=== PATIENT | female | born 1960 | race Caucasian/White ===

== ENCOUNTER 2017-03-30 09:22 | Inpatient (IN) | payer OTHER, SELFPAY ==
[2017-03-30 10:07] LABS: #Eosinphils 0.4 thou/uL (0.0-0.7); #Lymphocytes 1.1 thou/uL (1.20-3.40); #Monocytes 0.4 thou/uL (0.11-0.59); #Neutrophils 6.7 thou/uL (1.40-6.50); %Basophils 0.2 % (0.0-1.0); %Eosinophils 4.7 % (0.0-10.0); %Lymphocytes 13.2 % (21.0-51.0); %Monocytes 4.3 % (0.0-10.0); Hematocrit 24.1 % (36.0-47.0); Mean Platelet Volume 6.9 fL (7.4-10.4); Red Blood Cell (RBC) Count 2.79 mill/uL (4.20-5.40); White Blood Cell (WBC) Count 8.7 thou/uL (4.8-10.8)
[2017-03-30 10:14] LABS: Prothrombin Time 14.5 SEC (12.0-14.7)
[2017-03-30 10:15] LABS: PTT 35.6 SEC (22.9-36.1)
--- NOTE | 2017-03-30 10:18 | CT ---
CONTRAST ENHANCED CT IMAGES OF THE ABDOMEN AND PELVIS: 03/30/2017 TECHNIQUE: IV contrast was given. FINDINGS: Contrast enhanced CT images of the abdomen and pelvis demonstrate areas of patchy density and air sp rogerio opacities at the posterior aspect of the lingula, as well as the left lower lobe and, to a lesse r degree, the posterior aspect of the right lower lobe. This is compatible with areas of possible p neumonia. This has increased in opacity since the previous exam from 12/23/2016. No evidence of free intraperitoneal air is seen. There is a gastrostomy tube now in place. The asya er and spleen are unremarkable. A gallstone is again noted. No evidence of gallbladder wall thicke abi is seen. No evidence of periaortic lymphadenopathy is seen. Atherosclerotic calcification of the abdominal a bethany and iliac artery is seen. A subumbilical midline incision is again seen. There is interval development of bilateral hydroureteronephrosis, not previously present. The urete rs are dilated bilaterally, to the region of the distal ureter. No evidence of obvious bladder mass es or lesions seen. A moderate amount of stool is seen in the rectum and colon. Also noted is some thickening of the distal esophagus, as well as a hiatal hernia. IMPRESSION: 1. Interval development of bilateral hydroureteronephrosis. 2. Placement of gastrostomy tube. 3. Increased opacities in the lung bases and lingula. POS: LIDYA
[2017-03-30 10:31] LABS: ALT (SGPT) 54 U/L (8-55); AST (SGOT) 45 U/L (5-34); Alkaline Phosphatase 350 U/L (40-150); Anion Gap 11 mmol/L (10-20); BUN (Urea Nitrogen) 54 mg/dL (9.8-20.1); Bilirubin, Total 0.3 mg/dL (0.2-1.2); Calc. Creatinine Clearance 0 mL/min (70-130); Calcium 9.6 mg/dL (7.8-10.44); Carbon Dioxide 30 mmol/L (22-29); Chloride 98 mmol/L (98-107); Estimated GFR-MDRD 42; Globulin 3.3 g/dL (2.4-3.5); Lipase 16 U/L (8-78); Protein, Total 6.2 g/dL (6.0-8.3)
[2017-03-30] MEDS ORDERED: Pantoprazole 40 MG VIAL ONE (12:51)
--- OUTSIDE RECORDS SUMMARY | 2017-03-30 12:57 | XMS | Clinical Summary ---
:1960 Author Organization [facility] Address [address] [place] [address] Phone Care Team Providers Name Role Phone , Primary Care Provider Unavailable Allergies Not on File Current Medications Not on file Active Problems Not on file Social History Tobacco Use Types Packs/Day Years Used Date Never Assessed Sex Assigned at Date Recorded Not on file Last Filed Vital Signs Not on file Plan of Treatment Not on file Results Not on filefrom Last 3 Months
[2017-03-30] MEDS ORDERED: Pantoprazole 80 MG, Admixture Fee 1 EACH in Sodium Chloride 0.9% 100 ML IVP SCH (13:15)
[2017-03-30] MEDS ORDERED: Iopamidol 370 76% 100 ML VIAL ONE (14:39)
[2017-03-30] MEDS ORDERED: Ondansetron HCl/PF 4 MG/2 ML Vial IVP PRN ×2 (14:42→15:09)
[2017-03-30] MEDS ORDERED: Acetaminophen 325 MG TAB PO PRN (14:42)
[2017-03-30] MEDS ORDERED: HYDROcodone/Acetaminophen 5/325 mg Tablet PO PRN ×2 (14:42)
[2017-03-30] MEDS ORDERED: Ondansetron ODT 4 MG TAB SL PRN (14:42)
[2017-03-30] MEDS ORDERED: Ondansetron ODT 4 MG TAB PER TUBE PRN (15:09)
[2017-03-30] MEDS ORDERED: Eucerin (Mineral Oil/Petrolatum,White) 30 gm Jar TOP PRN (15:09)
[2017-03-30] MEDS ORDERED: Fleet Enema 133 ML BOT PR PRN (15:09)
[2017-03-30] MEDS ORDERED: Acetaminophen 325 MG TAB PER TUBE PRN (15:09)
[2017-03-30] MEDS ORDERED: Sodium Chloride 0.65% Nasal 44 ML BOT EA NARE PRN (15:09)
[2017-03-30] MEDS ORDERED: Loperamide HCl 2 MG CAP PER TUBE PRN (15:09)
[2017-03-30] MEDS ORDERED: Mag-Al 1200 mg/1200 mg/30 ML UDCUP PER TUBE PRN (15:09)
[2017-03-30] MEDS ORDERED: Zolpidem Tartrate 5 MG TAB PER TUBE PRN (15:09)
[2017-03-30] MEDS ORDERED: Bisacodyl 10 MG SUPP PR PRN (15:09)
[2017-03-30] MEDS ORDERED: Artificial Tears 18 DROP/0.9 ML EA EYE PRN (15:09)
[2017-03-30] MEDS ORDERED: hydrALAZINE 20 MG/ML VIAL SLOW IVP PRN (15:09)
[2017-03-30] MEDS ORDERED: Diabetic Tussin 200 MG/10 ML UDCUP PO PRN (15:09)
[2017-03-30 15:27] VITALS: BMI 20.9
[2017-03-30 16:04] LABS: Bilirubin Negative (Negative); Blood, Urine Large (Negative); Glucose, Urine (Dipstick) Negative (Negative); Ketone, Urine Negative (Negative); Nitrite Negative (Negative); Protein, Urine (Dipstick) Negative (Neg-Trace); Urobilinogen 0.2 mg/dL (0.2-1.0)
[2017-03-30 16:09] LABS: Bacteria/HPF None Seen HPF (None Seen); Hyaline Casts/LPF 0-3 HYALINE CAST LPF (0-3 Hyaline); Squamous Epithelial None Seen HPF (0-3); WBC/HPF 21-50 HPF (0-3)
[2017-03-30] MEDS: Sodium Chloride 0.9% 1,000 ML IV SCH (16:19)
--- NOTE | 2017-03-30 16:42 | HP ---
PRIMARY CARE PHYSICIAN: JEANNETTE Zeng, at the prison. REASON FOR ADMISSION: Upper gastrointestinal bleed, acute kidney failure, bilateral hydronephrosis. HISTORY OF PRESENT ILLNESS: A 56-year-old female who was admitted in our hospital in 12/2016. At t hat time, patient had a prolonged hospital course and she was [facility] to prison on 01/13/20 17. This patient had a functional quadriplegia and this patient also had poor p.o. intake and requi red a PEG tube placement. This patient also had a CT chest, abdomen and pelvis at that time which showed cholelithiasis and ac id reflux. This patient was doing very well up until today, patient noticed blood in vomiting at th e prison and that is why she was sent to the emergency room for evaluation. Her hemoglobin wh en we discharged from hospital, at that time, it was 9.3 and today her hemoglobin is 7.6. The patie nt reports only 1 time vomiting of blood. She does not have any melanotic stool. In the emergency room, gastric occult blood was positive, but stool occult blood was negative. This patient denies any cough, shortness of breath, but her CT of the abdomen and pelvis also report ed bibasilar and lingular infiltration consistent with pneumonia. This time, patient also found wit h bilateral hydronephrosis and acute kidney failure. This patient is a poor historian. She does not providing any good history. She reports that she is eating as well as receiving tube feeding through the PEG tube. Patient reports that she is able to feel and move her both lower extremities as well as both upper extremities, but whenever she tried to walk, she cannot walk. The patient also reported that she had urination in the emergency room. REVIEW OF SYSTEMS: The following complete review of systems was negative, unless otherwise mentione d in the HPI or below: Constitutional: Weight loss or gain, ability to conduct usual activities. Skin: Rash, itching. Eyes: Double vision, pain. ENT/Mouth: Nose bleeding, neck stiffness, pain, tenderness. Cardiovascular: Palpitations, dyspnea on exertion, orthopnea. Respiratory: Shortness of breath, wheezing, cough, hemoptysis, fever or night sweats. Gastrointestinal: Poor appetite, abdominal pain, heartburn, nausea, vomiting, constipation, or diar allie. Genitourinary: Urgency, frequency, dysuria, nocturia. Musculoskeletal: Pain, swelling. Neurologic/Psychiatric: Anxiety, depression. Allergy/Immunologic: Skin rash, bleeding tendency. Please see my HPI for pertinent positives and negatives. All other review of system reviewed and ne gative except as mentioned in the HPI. PAST MEDICAL HISTORY: Hypothyroidism, dyslipidemia, COPD, hypertension, history of cervical cancer, physical deconditioning, functional quadriplegia. PAST PSYCHIATRIC HISTORY: Anxiety and depression. PAST SURGICAL HISTORY: Hysterectomy, x3, PEG tube placement. SOCIAL HISTORY: Patient is and she has 3 children. She is a former smoker. She quit [employer] this year, previously she was living by herself and she was also hospitalized in [place]. S he has a remote history of smoking about 2 packs per day for 30 years and more, but quit smoking thi s year. She denies any alcohol abuse. She is currently from prison. FAMILY HISTORY: Positive for heart disease and stroke on maternal side of the family, stroke and [place] also positive on paternal side of the family. CURRENT HOME MEDICATIONS: The patient does not have any medication with her at this point, but marlene ent was discharged on following medications: Albuterol 1 puff inhalation q.6 hourly p.r.n., aspirin 81 mg p.o. daily, Celexa 20 mg p.o. daily, ferrous sulfate 325 mg p.o. daily, folic acid 1 mg p.o. b.i.d., Synthroid 175 mcg p.o. daily, liothyronine 5 mcg p.o. daily, Remeron 15 mg p.o. at bedtime, Protonix 40 mg p.o. daily, MiraLax 17 grams p.o. daily, Inderal 10 mg t.i.d., bupropion 300 mg p.o. daily. ALLERGIES: LATEX, but no known drug allergies. EMERGENCY ROOM COURSE: Patient is given IV fluid and Protonix. PHYSICAL EXAMINATION: VITAL SIGNS: On arrival, blood pressure 112/62, pulse 104, respiratory rate 18, temperature 98.3, s aturation 93% on room air, weight 50.3 kilograms. GENERAL: Patient is currently alert, awake, in no obvious distress. Patient appears elder than her stated age. HEAD: Normocephalic, atraumatic. EYES: Pupils round, reactive to light, sunken eyeball. ENT: Oropharynx within normal limits. Dry appearing mucous membranes. No oral lesions. No pharyn geal erythema, no exudate. NECK: Supple, no JVD, no thyromegaly, no carotid bruit. LUNGS: Clear to auscultation, and few basilar rales noted. CARDIAC: S1, S2 regular without any murmur. ABDOMEN: Soft. PEG tube site is clean and no discharge noted. Vague abdominal discomfort noted, b ut predominantly on the lower abdomen. BACK: Unremarkable, no CVA tenderness. EXTREMITIES: Upper extremity: Passive movement of all joints are normal. Lower extremity: Passiv e movement of all joints are normal. SKIN: No skin rash. HEMATOLOGICAL: No lymphadenopathy. PSYCHIATRIC: Normal affect. SIGNIFICANT LABORATORY DATA AND IMAGING: CT of the abdomen and pelvis showing new bilateral hydrone phrosis, bilateral lower lobe consolidation, cholelithiasis, esophageal thickening with hiatal herni a. CBC: WBC 8.7, hemoglobin 7.6, platelets 297. INR 1.1. BMP: Sodium 135, potassium 4.4, chlori de 98, carbon dioxide 30, anion gap 11, BUN 54, creatinine 1.32, glucose 104, calcium 9.6. LFT: T 45, ALT 54, alkaline phosphatase 350, albumin 2.9, lipase 16. ASSESSMENT AND PLAN: 1. Acute upper gastrointestinal bleed. This patient has hematemesis. Her gastric occult blood is positive. This patient has drop in her hemoglobin from 9.3-7.6. At this point, the patient will be treated with Protonix 40 mg IV b.i.d. We will consult fish protector for upper endoscopic eval uation. We will keep her on clear liquid diet only. 2. Bilateral hydronephrosis, etiology uncertain. We will consult Urology. The patient will need a Muller catheterization. We will check urinalysis and urine culture. 3. Acute kidney failure, likely due to prerenal etiology. We will continue with slow IV fluid NS a t 70 mL per hour and we will repeat BMP tomorrow. We will check urinalysis. 4. Pneumonia, suspecting aspiration pneumonia. Patient will be given Zosyn 3.375 gram IV q.6 hourl y and the pharmacy adjusted vancomycin while in hospital. 5. Constipation. The patient will be given Dulcolax suppository and enema as needed basis. We latrice l also continue with stool softener on a daily basis. 6. Cholelithiasis. Patient has abnormal LFT. We will consult General Surgery for evaluation for c holelithiasis. 7. Functional quadriplegia, this patient is off bed bound status. Patient will need PT, OT while i n hospital. 8. Chronic obstructive pulmonary disease. DuoNeb therapy q.6 hourly p.r.n. 9. Gastroesophageal reflux disease. Patient is already on Protonix 40 mg IV b.i.d. 10. Esophagitis with hiatal hernia. Patient is already on Protonix 40 mg IV b.i.d. and GI consulte d. 11. Gastroesophageal reflux disease. We will continue Protonix 40 mg IV b.i.d. 12. Code status: The patient is full code. Patient does not have any surrogate decision maker. 13. Anxiety and depression. We will also continue Remeron 15 mg p.o. at bedtime and Celexa 20 mg p .o. daily. 14. Hypothyroidism. We will continue Synthroid 175 mcg p.o. daily and liothyronine 5 mcg p.o. yesi y. Tomorrow we will check TSH, free T3 and free T4. 15. Multiple nutrition deficiency. We will provide nutritional support while in hospital. 16. Moderate to severe protein calorie malnutrition. The patient will be given nutritional support while in hospital. Disposition and plan based on clinical course. We are expecting patient's stay in hospital more emili n 2 midnights. Plan of care discussed with the patient in detail.
[2017-03-30] MEDS: Vancomycin HCl 750 MG in Sodium Chloride 0.9% 250 ML 250 ML IVPB SCH (17:02)
[2017-03-30] MEDS ORDERED: Piperacillin/Tazobactam 2.25 GM in Sodium Chloride 0.9% 100 ML IVPB SCH (18:00)
[2017-03-30] MEDS ORDERED: Piperacillin/Tazobactam 3.375 GM in Sodium Chloride 0.9% 100 ML IVPB SCH (18:00)
[2017-03-30] MEDS: Docusate 100 MG CAP PER TUBE SCH (20:03)
[2017-03-30] MEDS: Mirtazapine 15 MG TAB PER TUBE SCH (20:04)
[2017-03-30] MEDS: Pantoprazole 40 MG VIAL IVP SCH (20:04)
[2017-03-30] MEDS: Piperacillin/Tazobactam 2.25 GM in Sodium Chloride 0.9% 100 ML IVPB SCH (20:05)
[2017-03-30] MEDS ORDERED: Pantoprazole 40 MG VIAL IVP SCH (21:00)
[2017-03-31] MEDS: Piperacillin/Tazobactam 2.25 GM in Sodium Chloride 0.9% 100 ML IVPB SCH ×4 (02:05→21:16)
[2017-03-31 05:56] LABS: #Eosinphils 0.4 thou/uL (0.0-0.7); #Monocytes 0.4 thou/uL (0.11-0.59); #Neutrophils 3.6 thou/uL (1.40-6.50); %Basophils 0.2 % (0.0-1.0); %Eosinophils 7.5 % (0.0-10.0); %Lymphocytes 19.5 % (21.0-51.0); %Monocytes 6.7 % (0.0-10.0); Hematocrit 26.5 % (36.0-47.0); Mean Platelet Volume 6.7 fL (7.4-10.4); Red Blood Cell (RBC) Count 3.04 mill/uL (4.20-5.40); White Blood Cell (WBC) Count 5.4 thou/uL (4.8-10.8)
[2017-03-31 06:12] LABS: ALT (SGPT) 48 U/L (8-55); AST (SGOT) 28 U/L (5-34); Alkaline Phosphatase 335 U/L (40-150); Anion Gap 13 mmol/L (10-20); BUN (Urea Nitrogen) 44 mg/dL (9.8-20.1); Bilirubin, Total 0.3 mg/dL (0.2-1.2); Calc. Creatinine Clearance 41 mL/min (70-130); Carbon Dioxide 26 mmol/L (22-29); Chloride 107 mmol/L (98-107); Estimated GFR-MDRD 45; Globulin 3.8 g/dL (2.4-3.5); Protein, Total 6.8 g/dL (6.0-8.3)
[2017-03-31 06:40] LABS: Free T3 1.98 pg/mL (1.71-3.71)
[2017-03-31] MEDS: Levothyroxine Sodium 175 MCG TAB PER TUBE SCH (06:51)
[2017-03-31] MEDS: Sodium Chloride 0.9% 1,000 ML IV SCH ×2 (07:56→16:12)
[2017-03-31] MEDS: Citalopram 20 MG TAB PER TUBE SCH (07:57)
[2017-03-31] MEDS: Folic Acid 1 MG TAB PER TUBE SCH (07:57)
[2017-03-31] MEDS: Docusate 100 MG CAP PER TUBE SCH ×3 (07:57→21:21)
[2017-03-31] MEDS: Cyanocobalamin (Vitamin B-12) 1,000 MCG TAB PER TUBE SCH (07:57)
[2017-03-31] MEDS: Liothyronine Sodium 5 MCG TAB PER TUBE SCH (07:58)
[2017-03-31] MEDS: Pantoprazole 40 MG VIAL IVP SCH ×2 (07:58→21:18)
--- NOTE | 2017-03-31 09:42 | PDOC.PN ---
- Subjective Encounter Start Date: 03/31/17 Encounter Start Time: 07:30 -: old records requested/rev Patient seen and examined. No new complaints. No overnight events - Objective Resuscitation Status: Resuscitation Status FULL:Full Resuscitation MAR Reviewed: Yes Vital Signs & Weight: Vital Signs (12 hours) Temp Pulse Resp BP BP Pulse Ox 03/31/17 09:24 151/72 H 03/31/17 08:49 94 181/66 H 03/31/17 08:00 97.3 F L 94 18 03/31/17 04:00 97.3 F L 100 20 167/82 H 93 L 03/31/17 00:04 150/84 H 03/31/17 00:00 97.6 F 101 H 18 188/77 H Weight Weight 111 lb I&O: 03/30/17 03/31/17 04/01/17 06:59 06:59 06:59 Intake Total 1075 Balance 1075 Result Diagrams: 03/31/17 05:41 03/31/17 05:41 Phys Exam - Physical Examination Constitutional: NAD HEENT: PERRLA, moist MMs, sclera anicteric Neck: no JVD, supple Respiratory: no wheezing, no rales, no rhonchi Cardiovascular: RRR, no significant murmur, no rub Gastrointestinal: soft, non-tender, no distention, positive bowel sounds PEG+ Musculoskeletal: no edema, pulses present Neurological: moves all 4 limbs Lymphatic: no nodes Psychiatric: normal affect, A&O x 3 Skin: no rash, normal turgor Dx/Plan (1) Acute kidney failure Status: Acute (2) Anemia due to acute blood loss Code(s): D62 - ACUTE POSTHEMORRHAGIC ANEMIA Status: Acute (3) Aspiration pneumonia Code(s): J69.0 - PNEUMONITIS DUE TO INHALATION OF FOOD AND VOMIT Status: Acute (4) Bilateral hydronephrosis Code(s): N13.30 - UNSPECIFIED HYDRONEPHROSIS Status: Acute (5) Constipation Code(s): K59.00 - CONSTIPATION, UNSPECIFIED Status: Acute (6) Esophagitis Code(s): K20.9 - ESOPHAGITIS, UNSPECIFIED Status: Acute (7) GI bleed Code(s): K92.2 - GASTROINTESTINAL HEMORRHAGE, UNSPECIFIED Status: Acute (8) UTI (urinary tract infection) Status: Acute (9) Anemia, normocytic normochromic Code(s): D64.9 - ANEMIA, UNSPECIFIED Status: Chronic (10) Anxiety and depression Code(s): F41.9 - ANXIETY DISORDER, UNSPECIFIED; F32.9 - MAJOR DEPRESSIVE DISORDER, SINGLE EPISODE, UNSPECIFIED Status: Chronic (11) COPD (chronic obstructive pulmonary disease) Status: Chronic (12) Cholelithiases Code(s): K80.20 - CALCULUS OF GALLBLADDER W/O CHOLECYSTITIS W/O OBSTRUCTION Status: Chronic Qualifiers: (13) GERD (gastroesophageal reflux disease) Code(s): K21.9 - GASTRO-ESOPHAGEAL REFLUX DISEASE WITHOUT ESOPHAGITIS Status: Chronic Qualifiers: (14) Hiatal hernia Code(s): K44.9 - DIAPHRAGMATIC HERNIA WITHOUT OBSTRUCTION OR GANGRENE Status: Chronic (15) Hypothyroidism Code(s): E03.9 - HYPOTHYROIDISM, UNSPECIFIED Status: Chronic (16) Physical deconditioning Code(s): R53.81 - OTHER MALAISE Status: Chronic (17) Protein-calorie malnutrition, moderate Code(s): E44.0 - MODERATE PROTEIN-CALORIE MALNUTRITION Status: Chronic (18) Functional quadriplegia Code(s): R53.2 - FUNCTIONAL QUADRIPLEGIA Status: Chronic - Plan cont current plan of care, continue antibiotics, PT/OT, respiratory therapy * continue IVF * continue vanomycin and zosyn * GI consulted for GI bleed * Urology consulted for hydronephrosis * Surgeon consulted for cholelithesis * will repeat labs tomorrow * continue oral nutrition and use of PEG as needed * medication reviewed as below * symptomatic treatment. Review of Systems - Review of Systems Eyes: negative: Pain, Vision Change, Conjunctivae Inflammation, Eyelid Inflammation, Redness, Other ENT: negative: Ear Pain, Ear Discharge, Nose Pain, Nose Discharge, Nose Congestion, Mouth Pain, Mouth Swelling, Throat Pain, Throat Swelling, Other Respiratory: negative: Cough, Dry, Shortness of Breath, Hemoptysis, SOB with Excertion, Pleuritic Pain, Sputum, Wheezing Cardiovascular: negative: Chest Pain, Palpitations, Orthopnea, Paroxysmal Noc. Dyspnea, Edema, Light Headedness, Other Gastrointestinal: negative: Nausea, Vomiting, Abdominal Pain, Diarrhea, Constipation, Melena, Hematochezia, Other Genitourinary: negative: Dysuria, Frequency, Incontinence, Hematuria, Retention , Other Musculoskeletal: negative: Neck Pain, Shoulder Pain, Arm Pain, Back Pain, Hand Pain, Leg Pain, Foot Pain, Other - Medications/Allergies Allergies/Adverse Reactions: Allergies Allergy/AdvReac Type Severity Reaction Status Date / Time latex Allergy Verified 12/17/16 20:46 Medications: Current Medications Acetaminophen (Tylenol) 650 mg PER TUBE Q4H PRN PRN Reason: Headache/Fever or Pain Hydrocodone Bitart/Acetaminophen ([place] 5/325) 1 tab PER TUBE Q4H PRN PRN Reason: Moderate Pain (4-6) Al Hydroxide/Mg Hydroxide (Maalox) 30 ml PER TUBE Q6H PRN PRN Reason: Heartburn or Indigestion Albuterol/Ipratropium (Duoneb) 3 ml NEB [id number] PRN PRN Reason: SOB &/or Wheezing Artificial Tears (Tears Naturale) 0 drop EA EYE PRN PRN PRN Reason: Dry Eyes Bisacodyl (Dulcolax) 10 mg MS Q24H PRN PRN Reason: Constipation Cholecalciferol (Vitamin D3) 1,000 units PER TUBE DAILY [facility] Last Admin: 03/31/17 07:57 Dose: 1,000 units Citalopram Hydrobromide (Celexa) 20 mg PER TUBE DAILY [facility] Last Admin: 03/31/17 07:57 Dose: 20 mg Cyanocobalamin (Vitamin B-12) 1,000 mcg PER TUBE DAILY [facility] Last Admin: 03/31/17 07:57 Dose: 1,000 mcg Docusate Sodium (Colace) 100 mg PER TUBE BID [facility] Last Admin: 03/31/17 07:57 Dose: 100 mg Folic Acid (Folvite) 1 mg PER TUBE DAILY [facility] Last Admin: 03/31/17 07:57 Dose: 1 mg Guaifenesin (Robitussin Sf) 200 mg PO Q4H PRN PRN Reason: Cough Hydralazine HCl (Apresoline) 10 mg SLOW IVP Q4H PRN PRN Reason: Systolic BP > 180 Last Admin: 03/31/17 08:49 Dose: 10 mg Sodium Chloride (Normal Saline 0.9%) 1,000 mls @ 75 mls/hr IV .[id number] [facility] Last Admin: 03/31/17 07:56 Dose: Not Given Vancomycin HCl 750 mg/ Sodium (Chloride) 250 mls @ 250 mls/hr IVPB 1700 [facility] Last Admin: 03/30/17 17:02 Dose: 250 mls Piperacillin Sod/Tazobactam (Sod 2.25 gm/ Sodium Chloride) 100 mls @ 200 mls/ hr IVPB 0200,0800,1400,2000 [facility] Last Admin: 03/31/17 09:30 Dose: 100 mls Levothyroxine Sodium (Synthroid) 175 mcg PER TUBE 0600 [facility] Last Admin: 03/31/17 06:51 Dose: 175 mcg Liothyronine Sodium (Cytomel) 5 mcg PER TUBE DAILY [facility] Last Admin: 03/31/17 07:58 Dose: 5 mcg Loperamide HCl (Imodium) 2 mg PER TUBE PRN PRN PRN Reason: Diarrhea/Loose Stools Mineral Oil/White Petrolatum (Eucerin Cream) 0 gm TOP BIDPRN PRN PRN Reason: Dry Skin Mirtazapine (Remeron) 15 mg PER TUBE HS [facility] Last Admin: 03/30/17 20:04 Dose: 15 mg Miscellaneous Medication (Pharmacy To Dose) 1 each IVPB ONE PRN PRN Reason: Pharmacy to dose Stop: 04/29/17 15:10 Ondansetron HCl (Zofran Odt) 4 mg PER TUBE Q6H PRN PRN Reason: Nausea/Vomiting Ondansetron HCl (Zofran) 4 mg IVP Q6H PRN PRN Reason: Nausea/Vomiting Pantoprazole Sodium (Protonix) 40 mg IVP Q12HR [facility] Last Admin: 03/31/17 07:58 Dose: 40 mg Sodium Biphosphate/Sodium Phosphate (Fleet Enema) 133 ml MS ONE PRN PRN Reason: Constipation Stop: 03/31/17 15:10 Sodium Chloride ([place] Nasal [place] 0.65%) 0 ml EA NARE QIDPRN PRN PRN Reason: Nasal Congestion Zolpidem Tartrate (Ambien) 5 mg PER TUBE HSPRN PRN PRN Reason: Insomnia
[2017-03-31] MEDS ORDERED: Ondansetron HCl/PF 4 MG/2 ML Vial IVP PRN (12:34)
[2017-03-31] MEDS ORDERED: Promethazine HCl 25 MG/ML VIAL SLOW IVP PRN (12:34)
--- NOTE | 2017-03-31 13:53 | CON ---
HISTORY OF PRESENT ILLNESS: The patient is a 56-year-old female who was sent over from [facility] for hematemesis. She reports she had one episode of vomiting of blood. She has not done that in the past. She denies any abdominal pain, any fever, chills, any weight loss. The marlene ent had a PEG tube placed approximately 2 months ago for inability to eat. She does eat along with her PEG feedings. PAST MEDICAL HISTORY: Hypothyroidism, hyperlipidemia, COPD, hypertension, history of cervical cance r and functional paraplegia. PAST SURGICAL HISTORY: Includes a hysterectomy, and PEG tube placement. MEDICATIONS: Albuterol, aspirin, Celexa, iron, folate, Synthroid, liothyronine, Remeron, Protonix, MiraLax, Inderal, and BuSpar. ALLERGIES: LATEX. SOCIAL HISTORY: She is a senior care resident, does not smoke or drink. FAMILY HISTORY: Negative for GI or liver disease. REVIEW OF SYSTEMS: CONSTITUTIONAL: No fever or chills, no weight loss. EYES: No blurred vision, double vision. ENT: No sore throat or earaches. CARDIOVASCULAR: No chest pain or palpitation. PULMONARY: No shortness of breath, cough or wheezing. GASTROINTESTINAL: See above. : No hematuria or dysuria. MUSCULOSKELETAL: Positive for lower extremity weakness. SKIN: No rashes. NEUROLOGIC: Negative for seizure activity. Positive for lower extremity muscle weakness. PHYSICAL EXAMINATION: VITAL SIGNS: Shows a temperature 98.0, pulse of 94, respiratory rate 16, and blood pressure 151/72. HEENT: Unremarkable. NECK: Supple. CHEST: Clear. CARDIOVASCULAR: Regular rate and rhythm. ABDOMEN: Soft and nontender, without organomegaly or masses. She has a PEG in the left upper quadr ant. The PEG site looks to be normal. LABORATORY DATA: Shows admission hemoglobin 7.6 with a repeat 8.0. PT is 14.5 with an INR of 1.1. Chemistries show a BUN 44, creatinine 1.25, alkaline phosphatase 335, albumin 3.0. Urinalysis show s 7-10 RBCs and 21-50 WBCs. Abdominal and pelvic CT performed shows interval development of bilater al hydroureteronephrosis, placement of gastrostomy tube, increased opacities in the lung bases and l ingula. ASSESSMENT: 1. Hematemesis. 2. Malnutrition -- history of [id number] malnutrition in the recent past with the percutane ous endoscopic gastrostomy placed because of this. 3. History of esophageal stricture. 4. Cholelithiasis. 5. Hiatal hernia. 6. Physical deconditioning. 7. Anemia secondary to gastrointestinal blood loss. RECOMMENDATIONS: 1. EGD. 2. PPI. 3. Serial H\T\H.
--- NOTE | 2017-03-31 14:29 | CON ---
DATE OF CONSULTATION: 03/31/2017 This is a consultation from Dr. Morales for bilateral hydronephrosis, distended bladder. HISTORY OF PRESENT ILLNESS: This is a 56-year-old female who is a poor historian, who was admitted yesterday after she developed nausea, vomiting with some blood at her senior care. She has an inte resting past medical history that includes a recent 3-month history of a functional quadriplegia, wh ere she can move her extremities and legs, but was unable to walk, pick things up or eat. She has h ad a PEG tube placed because of this. She also noticed 3-month time period some difficulty with emp tying her bladder that was new. Otherwise, her previous past urologic history is for stress incontinence after her 3 pregnancies, th rubi are all C-sections. The patient states that the progressive inability to empty her bladder has continued since dysfunctional paralysis and she currently voids into a diaper. REVIEW OF SYSTEMS: Constitutional: Denies fevers or chills. Skin: Denies any new rashes or itchi ng. Eyes: Denies blurred vision, double vision. ENT: Denies sore throat, congestion, or noseblee ds. Cardiovascular: Denies rapid heart rate or chest pain. Respiratory: Denies any shortness of breath, cough or hemoptysis. Gastrointestinal: She has some lower abdominal pain. She has had maría sea and vomiting of blood and she has a history of constipation. Genitourinary: She is incontinent and has a feeling of incomplete emptying. She denies hematuria, dysuria, urgency or frequency. Mu sculoskeletal: Denies any new back pain, knee pain. Hematologic: Denies any night sweats or fever s. Neurologic: Denies any new anxiety, depression or suicidal ideations. She has a 3-month histor y of functional paralysis. PAST MEDICAL HISTORY: Hypothyroidism, high cholesterol, COPD, hypertension, cervical cancer and fun ctional paralysis. She does have a remote history of anxiety, depression. She has had a hysterecto my, three C-sections, and PEG tube placed. SOCIAL HISTORY: She is a former smoker. Denies alcohol or drug abuse. She lives in a senior care . FAMILY HISTORY: Positive for coronary artery disease and stroke. MEDICATIONS: Her medications at the senior care are albuterol, aspirin, Celexa, iron, Synthroid, f olic acid, liothyronine, Remeron, Protonix, MiraLax, Inderal, bupropion. ALLERGIES: She is allergic to LATEX. PHYSICAL EXAMINATION: VITAL SIGNS: Blood pressure 151/72, heart rate is 94, she is 94% on room air, respirations 16, temp erature 98. She has multiple unmeasured voids into a diaper. GENERAL: She is alert, in no acute distress. No cervical lymphadenopathy. HEENT: Normocephalic, atraumatic. HEART: Regular rate and rhythm. LUNGS: Respirations are labored. ABDOMEN: She has a palpable distended bladder, but otherwise abdomen is nontender. No guarding, no rebound. EXTREMITIES: She is moving all of her upper and lower extremities, although she demonstrates weakne ss. She got bilateral lower extremity SCDs on. LABORATORY DATA: White blood cell count is 5.4, hemoglobin 8, platelets 297. INR is 1.1. Chemistr y this morning demonstrates an improvement in her creatinine from yesterday with hydration, her crea tinine is 1.25 and it was 1.3 yesterday. Her BUN is elevated at 44 and her alkaline phosphatase is elevated. Her urine with large leukocyte esterase, red blood cells. A urine culture is pending. O n her CT scan from a urologic standpoint, she does have bilateral hydroureteronephrosis down to the level of her bladder, but she also has very distended bladder. She also has a large amount of stool in her rectum. ASSESSMENT AND PLAN: Her nausea, vomiting, and dysfunctional status is being managed by the primary team. Bilateral hydr oureteronephrosis with distended bladder based on the history and physical exam. The patient may be in urinary retention that has developed over the last 3 months, it has slowly caused a bilateral hy droureteronephrosis. This is consistent with the story that she is telling us and the CT findings. She also had some moderate amount of stool. Due to her constipation which can also push her bladde r, decrease her ability to empty. At this point in time, I would recommend placement of a Muller cat heter to gravity, continued hydration to see if her kidney function continues to improve. We will g et an ultrasound after the Muller catheter has been in 24 hours. She may need a functional study to confirm that her kidneys are emptying as the hydronephrosis could be more chronic in nature if this has really been going on for 3 months. We will reassess her tomorrow.
--- NOTE | 2017-03-31 15:31 | OP ---
PREOPERATIVE DIAGNOSIS: Hematemesis. DESCRIPTION OF THE PROCEDURE: After informed consent was obtained, the patient was placed in the le ft lateral decubitus position and anesthesia administered per the Anesthesia Department. Forward vi lomax endoscope was inserted into the esophagus under direct visualization with ease and passed to t he distal esophagus with ease. There, a stricture was noted where the scope could not be passed. A 15 mm balloon was used and inflated for 1 minute, deflated and removed. Post-dilatation bleeding w as mild. The scope could then be passed into the stomach into the second portion of the duodenum. Second portion of the duodenum and duodenal bulb were normal. The pylorus, antrum, body, fundus, an d cardia were normal. A normal appearing PEG was noted. Retroflexion in the stomach showed a small hiatal hernia and a grade D esophagitis was noted in the distal half of the esophagus. ASSESSMENT: 1. Distal esophageal stricture - status post dilatation. 2. Severe grade D esophagitis secondary to reflux. 3. Small hiatal hernia. 4. Normal appearing gastrostomy. RECOMMENDATIONS: 1. Increase Protonix to b.i.d. 2. Iron. 3. Stable from GI standpoint.
[2017-03-31] MEDS: Vancomycin HCl 750 MG in Sodium Chloride 0.9% 250 ML 250 ML IVPB SCH (16:11)
[2017-03-31] MEDS: HYDROcodone/Acetaminophen 5/325 mg Tablet PER TUBE PRN ×2 (18:21→21:17)
[2017-03-31] MEDS: Mirtazapine 15 MG TAB PER TUBE SCH (21:18)
[2017-04-01] MEDS: Piperacillin/Tazobactam 2.25 GM in Sodium Chloride 0.9% 100 ML IVPB SCH ×4 (02:14→20:05)
[2017-04-01] MEDS: HYDROcodone/Acetaminophen 5/325 mg Tablet PER TUBE PRN ×4 (04:14→20:09)
[2017-04-01] MEDS: Levothyroxine Sodium 175 MCG TAB PER TUBE SCH (04:16)
[2017-04-01 04:38] LABS: #Eosinphils 0.5 thou/uL (0.0-0.7); #Lymphocytes 1.1 thou/uL (1.20-3.40); #Monocytes 0.3 thou/uL (0.11-0.59); #Neutrophils 2.1 thou/uL (1.40-6.50); %Basophils 0.6 % (0.0-1.0); %Eosinophils 12.6 % (0.0-10.0); %Monocytes 6.9 % (0.0-10.0); Mean Platelet Volume 6.6 fL (7.4-10.4); Red Blood Cell (RBC) Count 2.78 mill/uL (4.20-5.40); White Blood Cell (WBC) Count 4.1 thou/uL (4.8-10.8)
[2017-04-01 04:54] LABS: Anion Gap 12 mmol/L (10-20); BUN (Urea Nitrogen) 32 mg/dL (9.8-20.1); Calc. Creatinine Clearance 47 mL/min (70-130); Calcium 9.5 mg/dL (7.8-10.44); Carbon Dioxide 24 mmol/L (22-29); Chloride 108 mmol/L (98-107); Estimated GFR-MDRD 52
[2017-04-01] MEDS ORDERED: Potassium Chloride 20 MEQ TAB PO SCH (07:45)
[2017-04-01] MEDS: Folic Acid 1 MG TAB PER TUBE SCH (08:18)
[2017-04-01] MEDS: Pantoprazole 40 MG VIAL IVP SCH ×2 (08:18→20:07)
[2017-04-01] MEDS: Ferrous Sulfate 325 MG TAB PO SCH ×2 (08:18→16:40)
[2017-04-01] MEDS: Citalopram 20 MG TAB PER TUBE SCH (08:19)
[2017-04-01] MEDS: Cyanocobalamin (Vitamin B-12) 1,000 MCG TAB PER TUBE SCH (08:19)
[2017-04-01] MEDS: Docusate 100 MG CAP PER TUBE SCH ×2 (08:19→20:09)
[2017-04-01] MEDS: Sodium Chloride 0.9% 1,000 ML IV SCH (09:18)
[2017-04-01] MEDS: Liothyronine Sodium 5 MCG TAB PER TUBE SCH (10:45)
--- NOTE | 2017-04-01 11:03 | CON ---
DATE OF CONSULTATION: 04/01/2017 CHIEF COMPLAINT: Upper gastrointestinal bleed. HISTORY OF PRESENT ILLNESS: This is a 56-year-old female who had a PEG tube placed 2 months ago, wh o presented to the hospital and was admitted for upper GI bleed. She has now been seen by Dr. Ribeiro, who performed upper endoscopy, which revealed severe esophagitis. She did note some upper midepiga stric pain associated with this is now improved. On her CT scan for her abdominal pain on presentat ion, she was found to have gallstones. She did not have gallbladder wall thickening or evidence of acute cholecystitis. She had elevation of her alkaline phosphatase without elevation of her bilirub in. This morning, she denies any pain, denies nausea, vomiting. She states that she has had right upper quadrant pain in the past, but not currently. No history of jaundice or pancreatitis. PAST MEDICAL HISTORY: Includes functional high paraplegia, hypothyroidism, hyperlipidemia, COPD, hy pertension. PAST SURGICAL HISTORY: , hysterectomy, PEG tube. MEDICINES: See list. ALLERGIES: LATEX. SOCIAL HISTORY: Lives in senior care. No smoking, alcohol, or other drugs. FAMILY HISTORY: Negative for GI or liver disease. REVIEW OF SYSTEMS: Ten-system review of systems, otherwise negative unless described above. PHYSICAL EXAMINATION: VITAL SIGNS: Blood pressure is 180/74, pulse is 81. She is afebrile, respirations 16. HEENT: Sclerae anicteric. Oropharynx clear. NECK: No lymphadenopathy. CHEST: Clear. HEART: Regular rate and rhythm. ABDOMEN EXAM: She is nontender, nondistended. PEG tube site is clear. She has no right upper quad rant tenderness. LABORATORY DATA: White blood cell count is 4, hemoglobin 7, platelets are 301. Sodium is 141, pota ssium 3.3, creatinine 1.09. Alkaline phosphatase is elevated at 335, but her bilirubin, AST, ALT ar e all normal. Lipase normal. INR normal. X-RAY FINDINGS: Her CT on presentation shows thickening of her distal esophagus with hiatal hernia. She does have a gallstone. She does have bilateral hydroureteronephrosis. ASSESSMENT: Asymptomatic gallstone, elevation of alkaline phosphatase only without elevation of tot al bilirubin. PLAN: She really was unsure about chronic symptoms of right upper quadrant disease and gallbladder. I recommend that she see me in follow up in a few months after being discharged from the hospital. At that point, we can discuss cholecystectomy further. As of now, she really is asymptomatic and I would not recommend cholecystectomy. If her liver function tests were became more markedly abnorm al in the meantime could see her sooner.
--- NOTE | 2017-04-01 11:20 | PRG ---
DATE OF SERVICE: 04/01/2017 SUBJECTIVE: The patient is feeling fine. She is eating well. She is having no problems with tube feeding. OBJECTIVE: VITAL SIGNS: Temperature 97.9, pulse 81, respiratory rate 16, blood pressure 180/74. CHEST: Clear. CARDIOVASCULAR: Regular rate and rhythm. ABDOMEN: Benign. PEG site is okay. LABORATORY DATA: Shows a hemoglobin of 7.4, hematocrit 24.0, white blood count of 4.1. Chemistries show potassium 3.3. ASSESSMENT: 1. Esophageal stricture. 2. Severe reflux esophagitis. 3. Anemia. RECOMMENDATIONS: Continue b.i.d. PPI.
--- NOTE | 2017-04-01 11:23 | PDOC.PN ---
- Subjective Encounter Start Date: 04/01/17 Encounter Start Time: 09:30 Patient seen and examined. No new complaints. No overnight events - Objective Resuscitation Status: Resuscitation Status FULL:Full Resuscitation MAR Reviewed: Yes Vital Signs & Weight: Vital Signs (12 hours) Temp Pulse Resp BP Pulse Ox 04/01/17 08:00 97.9 F 81 16 180/74 H 97 04/01/17 04:00 97.8 F 82 18 134/71 94 L 03/31/17 23:52 97.8 F 75 18 129/67 95 Weight Admit Weight 111 lb Weight 111 lb I&O: 03/31/17 04/01/17 04/02/17 06:59 06:59 06:59 Intake Total 1075 1300 260 Output Total 1750 Balance 1075 -450 260 Result Diagrams: 04/01/17 03:58 04/01/17 03:58 Phys Exam - Physical Examination Constitutional: NAD HEENT: PERRLA, moist MMs, sclera anicteric Neck: no JVD, supple Respiratory: no wheezing, no rales, no rhonchi Cardiovascular: RRR, no significant murmur, no rub Gastrointestinal: soft, non-tender, no distention, positive bowel sounds PEG+ Musculoskeletal: no edema, pulses present tong+ Neurological: non-focal, normal sensation Psychiatric: normal affect, A&O x 3 Skin: no rash, normal turgor Dx/Plan (1) Acute kidney failure Status: Acute (2) Anemia due to acute blood loss Code(s): D62 - ACUTE POSTHEMORRHAGIC ANEMIA Status: Acute (3) Aspiration pneumonia Code(s): J69.0 - PNEUMONITIS DUE TO INHALATION OF FOOD AND VOMIT Status: Acute (4) Bilateral hydronephrosis Code(s): N13.30 - UNSPECIFIED HYDRONEPHROSIS Status: Acute (5) Constipation Code(s): K59.00 - CONSTIPATION, UNSPECIFIED Status: Acute (6) Esophagitis Code(s): K20.9 - ESOPHAGITIS, UNSPECIFIED Status: Acute (7) GI bleed Code(s): K92.2 - GASTROINTESTINAL HEMORRHAGE, UNSPECIFIED Status: Acute (8) UTI (urinary tract infection) Status: Acute (9) Anemia, normocytic normochromic Code(s): D64.9 - ANEMIA, UNSPECIFIED Status: Chronic (10) Anxiety and depression Code(s): F41.9 - ANXIETY DISORDER, UNSPECIFIED; F32.9 - MAJOR DEPRESSIVE DISORDER, SINGLE EPISODE, UNSPECIFIED Status: Chronic (11) COPD (chronic obstructive pulmonary disease) Status: Chronic (12) Cholelithiases Code(s): K80.20 - CALCULUS OF GALLBLADDER W/O CHOLECYSTITIS W/O OBSTRUCTION Status: Chronic Qualifiers: (13) GERD (gastroesophageal reflux disease) Code(s): K21.9 - GASTRO-ESOPHAGEAL REFLUX DISEASE WITHOUT ESOPHAGITIS Status: Chronic Qualifiers: (14) Hiatal hernia Code(s): K44.9 - DIAPHRAGMATIC HERNIA WITHOUT OBSTRUCTION OR GANGRENE Status: Chronic (15) Hypothyroidism Code(s): E03.9 - HYPOTHYROIDISM, UNSPECIFIED Status: Chronic (16) Physical deconditioning Code(s): R53.81 - OTHER MALAISE Status: Chronic (17) Protein-calorie malnutrition, moderate Code(s): E44.0 - MODERATE PROTEIN-CALORIE MALNUTRITION Status: Chronic (18) Functional quadriplegia Code(s): R53.2 - FUNCTIONAL QUADRIPLEGIA Status: Chronic (19) Hypokalemia Code(s): E87.6 - HYPOKALEMIA Status: Acute (20) S/P dilatation of esophageal stricture Code(s): Z98.890 - OTHER SPECIFIED POSTPROCEDURAL STATES; Z87.19 - PERSONAL HISTORY OF OTHER DISEASES OF THE DIGESTIVE SYSTEM Status: Acute - Plan cont current plan of care, continue antibiotics * continue IV protonix * continue empiric antibiotics * Urology recommendation and surgery recommendation noted. * DC IVF Review of Systems - Review of Systems ENT: negative: Ear Pain, Ear Discharge, Nose Pain, Nose Discharge, Nose Congestion, Mouth Pain, Mouth Swelling, Throat Pain, Throat Swelling, Other Respiratory: negative: Cough, Dry, Shortness of Breath, Hemoptysis, SOB with Excertion, Pleuritic Pain, Sputum, Wheezing Cardiovascular: negative: Chest Pain, Palpitations, Orthopnea, Paroxysmal Noc. Dyspnea, Edema, Light Headedness, Other Gastrointestinal: negative: Nausea, Vomiting, Abdominal Pain, Diarrhea, Constipation, Melena, Hematochezia, Other Genitourinary: negative: Dysuria, Frequency, Incontinence, Hematuria, Retention , Other Musculoskeletal: negative: Neck Pain, Shoulder Pain, Arm Pain, Back Pain, Hand Pain, Leg Pain, Foot Pain, Other Skin: negative: Rash, Lesions, Maurice, Bruising, Other - Medications/Allergies Allergies/Adverse Reactions: Allergies Allergy/AdvReac Type Severity Reaction Status Date / Time latex Allergy Verified 12/17/16 20:46 Medications: Current Medications Acetaminophen (Tylenol) 650 mg PER TUBE Q4H PRN PRN Reason: Headache/Fever or Pain Hydrocodone Bitart/Acetaminophen ([place] 5/325) 1 tab PER TUBE Q4H PRN PRN Reason: Moderate Pain (4-6) Last Admin: 04/01/17 10:50 Dose: 1 tab Al Hydroxide/Mg Hydroxide (Maalox) 30 ml PER TUBE Q6H PRN PRN Reason: Heartburn or Indigestion Albuterol/Ipratropium (Duoneb) 3 ml NEB Q3RR-QH PRN PRN Reason: SOB &/or Wheezing Artificial Tears (Tears Naturale) 0 drop EA EYE PRN PRN PRN Reason: Dry Eyes Bisacodyl (Dulcolax) 10 mg MS Q24H PRN PRN Reason: Constipation Cholecalciferol (Vitamin D3) 1,000 units PER TUBE DAILY [facility] Last Admin: 04/01/17 08:18 Dose: 1,000 units Citalopram Hydrobromide (Celexa) 20 mg PER TUBE DAILY [facility] Last Admin: 04/01/17 08:19 Dose: 20 mg Cyanocobalamin (Vitamin B-12) 1,000 mcg PER TUBE DAILY [facility] Last Admin: 04/01/17 08:19 Dose: 1,000 mcg Docusate Sodium (Colace) 100 mg PER TUBE BID [facility] Last Admin: 04/01/17 08:19 Dose: 100 mg Ferrous Sulfate (Feosol) 325 mg PO BID-[facility] Last Admin: 04/01/17 08:18 Dose: 325 mg Folic Acid (Folvite) 1 mg PER TUBE DAILY [facility] Last Admin: 04/01/17 08:18 Dose: 1 mg Guaifenesin (Robitussin Sf) 200 mg PO Q4H PRN PRN Reason: Cough Hydralazine HCl (Apresoline) 10 mg SLOW IVP Q4H PRN PRN Reason: Systolic BP > 180 Last Admin: 03/31/17 08:49 Dose: 10 mg Vancomycin HCl 750 mg/ Sodium (Chloride) 250 mls @ 250 mls/hr IVPB 1700 [facility] Last Admin: 03/31/17 16:11 Dose: 250 mls Piperacillin Sod/Tazobactam (Sod 2.25 gm/ Sodium Chloride) 100 mls @ 200 mls/ hr IVPB 0200,0800,1400,2000 [facility] Last Admin: 04/01/17 10:45 Dose: 100 mls Levothyroxine Sodium (Synthroid) 175 mcg PER TUBE 0600 [facility] Last Admin: 04/01/17 04:16 Dose: 175 mcg Liothyronine Sodium (Cytomel) 5 mcg PER TUBE DAILY [facility] Last Admin: 04/01/17 10:45 Dose: 5 mcg Loperamide HCl (Imodium) 2 mg PER TUBE PRN PRN PRN Reason: Diarrhea/Loose Stools Mineral Oil/White Petrolatum (Eucerin Cream) 0 gm TOP BIDPRN PRN PRN Reason: Dry Skin Mirtazapine (Remeron) 15 mg PER TUBE HS [facility] Last Admin: 03/31/17 21:18 Dose: 15 mg Miscellaneous Medication (Pharmacy To Dose) 1 each IVPB ONE PRN PRN Reason: Pharmacy to dose Stop: 04/29/17 15:10 Ondansetron HCl (Zofran Odt) 4 mg PER TUBE Q6H PRN PRN Reason: Nausea/Vomiting Ondansetron HCl (Zofran) 4 mg IVP Q6H PRN PRN Reason: Nausea/Vomiting Pantoprazole Sodium (Protonix) 40 mg IVP Q12HR [facility] Last Admin: 04/01/17 08:18 Dose: 40 mg Potassium Chloride (K-Dur) 40 meq PO ONE [facility] Stop: 04/01/17 12:00 Last Admin: 04/01/17 08:18 Dose: 40 meq Sodium Chloride ([place]bert Nasal Guy 0.65%) 0 ml EA NARE QIDPRN PRN PRN Reason: Nasal Congestion Zolpidem Tartrate (Ambien) 5 mg PER TUBE HSPRN PRN PRN Reason: Insomnia
--- NOTE | 2017-04-01 16:25 | PRG ---
DATE OF SERVICE: 04/01/2017 SUBJECTIVE: Overnight, the patient had some hematuria. Yesterday afternoon, a 3-way catheter was p laced. Bladder has been irrigated out, the CBI is off and her bladder is clear now and she is feeli ng better. OBJECTIVE: VITAL SIGNS: She is afebrile with stable vital signs. GENERAL: Alert, no acute distress. ABDOMEN: Softer today, nontender, nondistended. Urine clear. LABORATORY DATA: Her creatinine has continued to improve, it is now 1.09. Urine culture is negativ e to date. ASSESSMENT AND PLAN: 1. Bilateral hydroureteronephrosis, most likely secondary to urinary retention. Her creatinine has improved both with hydration and Muller catheter placement. 2. Hematuria. This may be a result of the decompression of her extremely distended bladder that limon s since cleared with CBI. My recommendations would be to keep the CBI off. We will get a renal chandni dder ultrasound to make sure the hydronephrosis is improving. Most likely, she will have to go home with a Muller catheter or with clean intermittent catheterization.
[2017-04-01 16:45] LABS: Vancomycin, Trough 14.4 ug/mL
[2017-04-01] MEDS: Vancomycin HCl 750 MG in Sodium Chloride 0.9% 250 ML 250 ML IVPB SCH (17:31)
--- NOTE | 2017-04-01 19:59 | ULT ---
BILATERAL RENAL ULTRASOUND COMPLETE: History: 56-year-old female for hydronephrosis follow up. Blood in urine. Comparison: 03-30-17 FINDINGS: The right kidney measures 11.3 x 5.0 x 6.3 cm. The left kidney is less than optimally seen but measu res 10.8 x 5.3 x 4.8 cm. Incidental gallstone. There is some persistent bilateral at least moderate hydronephrosis, but there appears to be improvement when compared to the prior CT of 03-30. Muller ca theter within the bladder. IMPRESSION: Persistent bilateral hydronephrosis somewhat worse on the right side but improving from the prior CT . Muller catheter within the bladder. POS: NAIN
[2017-04-01] MEDS: Mirtazapine 15 MG TAB PER TUBE SCH (20:09)
[2017-04-02] MEDS: Piperacillin/Tazobactam 2.25 GM in Sodium Chloride 0.9% 100 ML IVPB SCH ×4 (02:05→20:39)
[2017-04-02] MEDS: HYDROcodone/Acetaminophen 5/325 mg Tablet PER TUBE PRN ×3 (02:23→20:40)
[2017-04-02] MEDS: Levothyroxine Sodium 175 MCG TAB PER TUBE SCH (05:22)
[2017-04-02] MEDS: Liothyronine Sodium 5 MCG TAB PER TUBE SCH (08:51)
[2017-04-02] MEDS: Docusate 100 MG CAP PER TUBE SCH ×2 (08:52→20:40)
[2017-04-02] MEDS: Ferrous Sulfate 325 MG TAB PO SCH ×2 (08:52→18:15)
[2017-04-02] MEDS: Cyanocobalamin (Vitamin B-12) 1,000 MCG TAB PER TUBE SCH (08:52)
[2017-04-02] MEDS: Folic Acid 1 MG TAB PER TUBE SCH (08:52)
[2017-04-02] MEDS: Citalopram 20 MG TAB PER TUBE SCH (08:52)
[2017-04-02] MEDS: Pantoprazole 40 MG VIAL IVP SCH ×2 (08:52→21:49)
--- NOTE | 2017-04-02 14:40 | PDOC.PN ---
- Subjective Encounter Start Date: 04/02/17 Encounter Start Time: 09:30 Patient seen and examined. No new complaints. No overnight events - Objective Resuscitation Status: Resuscitation Status FULL:Full Resuscitation MAR Reviewed: Yes Vital Signs & Weight: Vital Signs (12 hours) Temp Pulse Resp BP Pulse Ox 04/02/17 08:00 98.3 F 86 16 154/73 H 98 04/02/17 03:08 93 L Weight Admit Weight 111 lb Weight 111 lb I&O: 04/01/17 04/02/17 04/03/17 06:59 06:59 06:59 Intake Total 1300 1610 960 Output Total 1750 2900 Balance -450 -1290 960 Result Diagrams: 04/01/17 03:58 04/01/17 03:58 Phys Exam - Physical Examination Constitutional: NAD HEENT: PERRLA, moist MMs, sclera anicteric Neck: no JVD, supple Respiratory: no wheezing, no rales, no rhonchi Cardiovascular: RRR, no significant murmur, no rub Gastrointestinal: soft, non-tender, no distention, positive bowel sounds peg+ tong+ Musculoskeletal: no edema, pulses present Neurological: moves all 4 limbs Lymphatic: no nodes Psychiatric: normal affect, A&O x 3 Skin: no rash, normal turgor Dx/Plan (1) Acute kidney failure Status: Acute (2) Anemia due to acute blood loss Code(s): D62 - ACUTE POSTHEMORRHAGIC ANEMIA Status: Acute (3) Aspiration pneumonia Code(s): J69.0 - PNEUMONITIS DUE TO INHALATION OF FOOD AND VOMIT Status: Acute (4) Bilateral hydronephrosis Code(s): N13.30 - UNSPECIFIED HYDRONEPHROSIS Status: Acute (5) Constipation Code(s): K59.00 - CONSTIPATION, UNSPECIFIED Status: Acute (6) Esophagitis Code(s): K20.9 - ESOPHAGITIS, UNSPECIFIED Status: Acute (7) GI bleed Code(s): K92.2 - GASTROINTESTINAL HEMORRHAGE, UNSPECIFIED Status: Acute (8) UTI (urinary tract infection) Status: Acute (9) Anemia, normocytic normochromic Code(s): D64.9 - ANEMIA, UNSPECIFIED Status: Chronic (10) Anxiety and depression Code(s): F41.9 - ANXIETY DISORDER, UNSPECIFIED; F32.9 - MAJOR DEPRESSIVE DISORDER, SINGLE EPISODE, UNSPECIFIED Status: Chronic (11) COPD (chronic obstructive pulmonary disease) Status: Chronic (12) Cholelithiases Code(s): K80.20 - CALCULUS OF GALLBLADDER W/O CHOLECYSTITIS W/O OBSTRUCTION Status: Chronic Qualifiers: (13) GERD (gastroesophageal reflux disease) Code(s): K21.9 - GASTRO-ESOPHAGEAL REFLUX DISEASE WITHOUT ESOPHAGITIS Status: Chronic Qualifiers: (14) Hiatal hernia Code(s): K44.9 - DIAPHRAGMATIC HERNIA WITHOUT OBSTRUCTION OR GANGRENE Status: Chronic (15) Hypothyroidism Code(s): E03.9 - HYPOTHYROIDISM, UNSPECIFIED Status: Chronic (16) Physical deconditioning Code(s): R53.81 - OTHER MALAISE Status: Chronic (17) Protein-calorie malnutrition, moderate Code(s): E44.0 - MODERATE PROTEIN-CALORIE MALNUTRITION Status: Chronic (18) Functional quadriplegia Code(s): R53.2 - FUNCTIONAL QUADRIPLEGIA Status: Chronic (19) Hypokalemia Code(s): E87.6 - HYPOKALEMIA Status: Acute (20) S/P dilatation of esophageal stricture Code(s): Z98.890 - OTHER SPECIFIED POSTPROCEDURAL STATES; Z87.19 - PERSONAL HISTORY OF OTHER DISEASES OF THE DIGESTIVE SYSTEM Status: Acute - Plan cont current plan of care, tong catheter, continue antibiotics, PT/OT, nursing home social worker * tomorrow will change to oral antibiotics * will need tong on discharge * medication reviewed as below * symptomatic treatment * plan for discharge tomorrow * nutritional support. Review of Systems - Review of Systems ENT: negative: Ear Pain, Ear Discharge, Nose Pain, Nose Discharge, Nose Congestion, Mouth Pain, Mouth Swelling, Throat Pain, Throat Swelling, Other Respiratory: negative: Cough, Dry, Shortness of Breath, Hemoptysis, SOB with Excertion, Pleuritic Pain, Sputum, Wheezing Cardiovascular: negative: Chest Pain, Palpitations, Orthopnea, Paroxysmal Noc. Dyspnea, Edema, Light Headedness, Other Gastrointestinal: negative: Nausea, Vomiting, Abdominal Pain, Diarrhea, Constipation, Melena, Hematochezia, Other Genitourinary: negative: Dysuria, Frequency, Incontinence, Hematuria, Retention , Other Musculoskeletal: negative: Neck Pain, Shoulder Pain, Arm Pain, Back Pain, Hand Pain, Leg Pain, Foot Pain, Other - Medications/Allergies Allergies/Adverse Reactions: Allergies Allergy/AdvReac Type Severity Reaction Status Date / Time latex Allergy Verified 12/17/16 20:46 Medications: Current Medications Acetaminophen (Tylenol) 650 mg PER TUBE Q4H PRN PRN Reason: Headache/Fever or Pain Hydrocodone Bitart/Acetaminophen ([place] 5/325) 1 tab PER TUBE Q4H PRN PRN Reason: Moderate Pain (4-6) Last Admin: 04/02/17 09:23 Dose: 1 tab Al Hydroxide/Mg Hydroxide (Maalox) 30 ml PER TUBE Q6H PRN PRN Reason: Heartburn or Indigestion Albuterol/Ipratropium (Duoneb) 3 ml NEB [id number] PRN PRN Reason: SOB &/or Wheezing Artificial Tears (Tears Naturale) 0 drop EA EYE PRN PRN PRN Reason: Dry Eyes Bisacodyl (Dulcolax) 10 mg [place] Q24H PRN PRN Reason: Constipation Cholecalciferol (Vitamin D3) 1,000 units PER TUBE DAILY [facility] Last Admin: 04/02/17 08:52 Dose: 1,000 units Citalopram Hydrobromide (Celexa) 20 mg PER TUBE DAILY [facility] Last Admin: 04/02/17 08:52 Dose: 20 mg Cyanocobalamin (Vitamin B-12) 1,000 mcg PER TUBE DAILY [facility] Last Admin: 04/02/17 08:52 Dose: 1,000 mcg Docusate Sodium (Colace) 100 mg PER TUBE BID [facility] Last Admin: 04/02/17 08:52 Dose: 100 mg Ferrous Sulfate ([facility]osol) [facility] Last Admin: 04/02/17 08:52 Dose: 325 mg Folic Acid (Folvite) 1 mg PER TUBE DAILY [facility] Last Admin: 04/02/17 08:52 Dose: 1 mg Guaifenesin (Robitussin Sf) 200 mg PO Q4H PRN PRN Reason: Cough Hydralazine HCl (Apresoline) 10 mg SLOW IVP Q4H PRN PRN Reason: Systolic BP > 180 Last Admin: 03/31/17 08:49 Dose: 10 mg Vancomycin HCl 750 mg/ Sodium (Chloride) 250 mls @ 250 mls/hr IVPB 1700 [facility] Last Admin: 04/01/17 17:31 Dose: 250 mls Piperacillin Sod/Tazobactam (Sod 2.25 gm/ Sodium Chloride) 100 mls @ 200 mls/ hr IVPB 0200,0800,1400,2000 [facility] Last Admin: 04/02/17 09:14 Dose: 100 mls Levothyroxine Sodium (Synthroid) 175 mcg PER TUBE 0600 [facility] Last Admin: 04/02/17 05:22 Dose: 175 mcg Liothyronine Sodium (Cytomel) 5 mcg PER TUBE DAILY [facility] Last Admin: 04/02/17 08:51 Dose: 5 mcg Loperamide HCl (Imodium) 2 mg PER TUBE PRN PRN PRN Reason: Diarrhea/Loose Stools Mineral Oil/White Petrolatum (Eucerin Cream) 0 gm TOP BIDPRN PRN PRN Reason: Dry Skin Mirtazapine (Remeron) 15 mg PER TUBE HS [facility] Last Admin: 04/01/17 20:09 Dose: 15 mg Miscellaneous Medication (Pharmacy To Dose) 1 each IVPB ONE PRN PRN Reason: Pharmacy to dose Stop: 04/29/17 15:10 Ondansetron HCl (Zofran Odt) 4 mg PER TUBE Q6H PRN PRN Reason: Nausea/Vomiting Ondansetron HCl (Zofran) 4 mg IVP Q6H PRN PRN Reason: Nausea/Vomiting Pantoprazole Sodium (Protonix) 40 mg IVP Q12HR [facility] Last Admin: 04/02/17 08:52 Dose: 40 mg Sodium Chloride ([place] Nasal [place] 0.65%) 0 ml EA NARE QIDPRN PRN PRN Reason: Nasal Congestion Zolpidem Tartrate (Ambien) 5 mg PER TUBE HSPRN PRN PRN Reason: Insomnia
[2017-04-02] MEDS: Vancomycin HCl 750 MG in Sodium Chloride 0.9% 250 ML 250 ML IVPB SCH (18:09)
[2017-04-02] MEDS: Mirtazapine 15 MG TAB PER TUBE SCH (20:40)
[2017-04-03] MEDS: Piperacillin/Tazobactam 2.25 GM in Sodium Chloride 0.9% 100 ML IVPB SCH ×4 (01:23→20:53)
[2017-04-03] MEDS: Levothyroxine Sodium 175 MCG TAB PER TUBE SCH (05:07)
[2017-04-03] MEDS: HYDROcodone/Acetaminophen 5/325 mg Tablet PER TUBE PRN ×4 (05:07→21:49)
[2017-04-03] MEDS: Ferrous Sulfate 325 MG TAB PO SCH ×2 (08:31→17:17)
[2017-04-03] MEDS: Liothyronine Sodium 5 MCG TAB PER TUBE SCH (08:31)
[2017-04-03] MEDS: Folic Acid 1 MG TAB PER TUBE SCH (08:31)
[2017-04-03] MEDS: Citalopram 20 MG TAB PER TUBE SCH (08:31)
[2017-04-03] MEDS: Cyanocobalamin (Vitamin B-12) 1,000 MCG TAB PER TUBE SCH (08:31)
[2017-04-03] MEDS: Pantoprazole 40 MG VIAL IVP SCH ×2 (08:31→20:53)
[2017-04-03] MEDS: Docusate 100 MG CAP PER TUBE SCH ×2 (08:31→20:54)
[2017-04-03 11:57] LABS: #Eosinphils 0.5 thou/uL (0.0-0.7); #Lymphocytes 1.2 thou/uL (1.20-3.40); #Monocytes 0.3 thou/uL (0.11-0.59); #Neutrophils 2.4 thou/uL (1.40-6.50); %Basophils 0.5 % (0.0-1.0); %Eosinophils 10.8 % (0.0-10.0); %Lymphocytes 27.8 % (21.0-51.0); %Monocytes 6.5 % (0.0-10.0); Hematocrit 26.1 % (36.0-47.0); Mean Platelet Volume 6.7 fL (7.4-10.4); Red Blood Cell (RBC) Count 3.04 mill/uL (4.20-5.40); White Blood Cell (WBC) Count 4.3 thou/uL (4.8-10.8)
[2017-04-03] MEDS ORDERED: Oxybutynin ER 5 MG TAB PO SCH (12:15)
[2017-04-03 12:22] LABS: Anion Gap 13 mmol/L (10-20); BUN (Urea Nitrogen) 14 mg/dL (9.8-20.1); Calc. Creatinine Clearance 62 mL/min (70-130); Calcium 9.4 mg/dL (7.8-10.44); Carbon Dioxide 23 mmol/L (22-29); Chloride 105 mmol/L (98-107); Estimated GFR-MDRD 72
[2017-04-03] MEDS ORDERED: Oxybutynin 5 MG TAB PO SCH (12:30)
[2017-04-03] MEDS: Oxybutynin 5 MG TAB PO SCH ×2 (12:55→20:53)
[2017-04-03] MEDS ORDERED: Potassium Chloride 40 MEQ in Premix Bag 1 BAG IVPB SCH (13:00)
[2017-04-03] MEDS ORDERED: Potassium Chloride 40 MEQ, Admixture Fee 1 EACH in Sodium Chloride 0.9% 250 ML 250 ML IVPB SCH (13:15)
--- NOTE | 2017-04-03 13:19 | PDOC.PN ---
- Subjective Encounter Start Date: 04/03/17 Encounter Start Time: 08:45 pt has hematuria and on CBI, no fever - Objective Resuscitation Status: Resuscitation Status FULL:Full Resuscitation MAR Reviewed: Yes Vital Signs & Weight: Vital Signs (12 hours) Temp Pulse Resp BP Pulse Ox 04/03/17 08:11 97.5 F L 86 16 158/80 H 95 04/03/17 08:00 97.5 F L 86 16 04/03/17 04:00 98.4 F 80 20 164/81 H 95 Weight Admit Weight 111 lb Weight 111 lb I&O: 04/02/17 04/03/17 04/04/17 06:59 06:59 06:59 Intake Total 1610 1900 Output Total 2900 800 Balance -1290 1100 Result Diagrams: 04/03/17 11:42 04/03/17 11:42 Phys Exam - Physical Examination Constitutional: NAD HEENT: PERRLA, moist MMs, sclera anicteric Neck: no JVD, supple Respiratory: no wheezing, no rales, no rhonchi Cardiovascular: RRR, no significant murmur, no rub Gastrointestinal: soft, non-tender, no distention, positive bowel sounds PEG+ Musculoskeletal: no edema, pulses present tong+ Neurological: moves all 4 limbs Lymphatic: no nodes Psychiatric: normal affect, A&O x 3 Skin: no rash, normal turgor Dx/Plan (1) Acute kidney failure Status: Acute (2) Anemia due to acute blood loss Code(s): D62 - ACUTE POSTHEMORRHAGIC ANEMIA Status: Acute (3) Aspiration pneumonia Code(s): J69.0 - PNEUMONITIS DUE TO INHALATION OF FOOD AND VOMIT Status: Acute (4) Bilateral hydronephrosis Code(s): N13.30 - UNSPECIFIED HYDRONEPHROSIS Status: Acute (5) Constipation Code(s): K59.00 - CONSTIPATION, UNSPECIFIED Status: Acute (6) Esophagitis Code(s): K20.9 - ESOPHAGITIS, UNSPECIFIED Status: Acute (7) GI bleed Code(s): K92.2 - GASTROINTESTINAL HEMORRHAGE, UNSPECIFIED Status: Acute (8) UTI (urinary tract infection) Status: Acute (9) Anemia, normocytic normochromic Code(s): D64.9 - ANEMIA, UNSPECIFIED Status: Chronic (10) Anxiety and depression Code(s): F41.9 - ANXIETY DISORDER, UNSPECIFIED; F32.9 - MAJOR DEPRESSIVE DISORDER, SINGLE EPISODE, UNSPECIFIED Status: Chronic (11) COPD (chronic obstructive pulmonary disease) Status: Chronic (12) Cholelithiases Code(s): K80.20 - CALCULUS OF GALLBLADDER W/O CHOLECYSTITIS W/O OBSTRUCTION Status: Chronic Qualifiers: (13) GERD (gastroesophageal reflux disease) Code(s): K21.9 - GASTRO-ESOPHAGEAL REFLUX DISEASE WITHOUT ESOPHAGITIS Status: Chronic Qualifiers: (14) Hiatal hernia Code(s): K44.9 - DIAPHRAGMATIC HERNIA WITHOUT OBSTRUCTION OR GANGRENE Status: Chronic (15) Hypothyroidism Code(s): E03.9 - HYPOTHYROIDISM, UNSPECIFIED Status: Chronic (16) Physical deconditioning Code(s): R53.81 - OTHER MALAISE Status: Chronic (17) Protein-calorie malnutrition, moderate Code(s): E44.0 - MODERATE PROTEIN-CALORIE MALNUTRITION Status: Chronic (18) Functional quadriplegia Code(s): R53.2 - FUNCTIONAL QUADRIPLEGIA Status: Chronic (19) Hypokalemia Code(s): E87.6 - HYPOKALEMIA Status: Acute (20) S/P dilatation of esophageal stricture Code(s): Z98.890 - OTHER SPECIFIED POSTPROCEDURAL STATES; Z87.19 - PERSONAL HISTORY OF OTHER DISEASES OF THE DIGESTIVE SYSTEM Status: Acute - Plan cont current plan of care, continue antibiotics, social media intern * will clamp CBI and monitor today for any recurrent hematuria * today will replace potassium and check magnesium and phosphorus * medication reviewed as below * symptomatic treatment * continue zosyn and vancomycin * possible discharge tomorrow. Review of Systems - Review of Systems ENT: negative: Ear Pain, Ear Discharge, Nose Pain, Nose Discharge, Nose Congestion, Mouth Pain, Mouth Swelling, Throat Pain, Throat Swelling, Other Respiratory: negative: Cough, Dry, Shortness of Breath, Hemoptysis, SOB with Excertion, Pleuritic Pain, Sputum, Wheezing Cardiovascular: negative: Chest Pain, Palpitations, Orthopnea, Paroxysmal Noc. Dyspnea, Edema, Light Headedness, Other Gastrointestinal: negative: Nausea, Vomiting, Abdominal Pain, Diarrhea, Constipation, Melena, Hematochezia, Other Genitourinary: Hematuria. negative: Dysuria, Frequency, Incontinence, Retention , Other Musculoskeletal: negative: Neck Pain, Shoulder Pain, Arm Pain, Back Pain, Hand Pain, Leg Pain, Foot Pain, Other Skin: negative: Rash, Lesions, [place], Bruising, Other - Medications/Allergies Allergies/Adverse Reactions: Allergies Allergy/AdvReac Type Severity Reaction Status Date / Time latex Allergy Verified 12/17/16 20:46 Medications: Current Medications Acetaminophen (Tylenol) 650 mg PER TUBE Q4H PRN PRN Reason: Headache/Fever or Pain Hydrocodone Bitart/Acetaminophen ([place] 5/325) 1 tab PER TUBE Q4H PRN PRN Reason: Moderate Pain (4-6) Last Admin: 04/03/17 09:17 Dose: 1 tab Al Hydroxide/Mg Hydroxide (Maalox) 30 ml PER TUBE Q6H PRN PRN Reason: Heartburn or Indigestion Albuterol/Ipratropium (Duoneb) 3 ml NEB [id number] PRN PRN Reason: SOB &/or Wheezing Artificial Tears (Tears Naturale) 0 drop EA EYE PRN PRN PRN Reason: Dry Eyes Bisacodyl (Dulcolax) 10 mg [place] Q24H PRN PRN Reason: Constipation Cholecalciferol (Vitamin D3) 1,000 units PER TUBE DAILY [facility] Last Admin: 04/03/17 08:31 Dose: 1,000 units Citalopram Hydrobromide (Celexa) 20 mg PER TUBE DAILY [facility] Last Admin: 04/03/17 08:31 Dose: 20 mg Cyanocobalamin (Vitamin B-12) 1,000 mcg PER TUBE DAILY [facility] Last Admin: 04/03/17 08:31 Dose: 1,000 mcg Docusate Sodium (Colace) 100 mg PER TUBE BID [facility] Last Admin: 04/03/17 08:31 Dose: 100 mg Ferrous Sulfate (Feosol) 325 mg PO BID[facility] Last Admin: 04/03/17 08:31 Dose: 325 mg Folic Acid (Folvite) 1 mg PER TUBE DAILY [facility] Last Admin: 04/03/17 08:31 Dose: 1 mg Guaifenesin (Robitussin Sf) 200 mg PO Q4H PRN PRN Reason: Cough Hydralazine HCl (Apresoline) 10 mg SLOW IVP Q4H PRN PRN Reason: Systolic BP > 180 Last Admin: 03/31/17 08:49 Dose: 10 mg Vancomycin HCl 750 mg/ Sodium (Chloride) 250 mls @ 250 mls/hr IVPB 1700 [facility] Last Admin: 04/02/17 18:09 Dose: 250 mls Piperacillin Sod/Tazobactam (Sod 2.25 gm/ Sodium Chloride) 100 mls @ 200 mls/ hr IVPB 0200,0800,1400,2000 [facility] Last Admin: 04/03/17 13:12 Dose: 100 mls Potassium Chloride 40 meq/Miscellaneous Medication 1 each/ Sodium Chloride 270 mls @ 67.5 mls/hr IVPB NOW [facility] Stop: 04/03/17 17:00 Levothyroxine Sodium (Synthroid) 175 mcg PER TUBE 0600 [facility] Last Admin: 04/03/17 05:07 Dose: 175 mcg Liothyronine Sodium (Cytomel) 5 mcg PER TUBE DAILY [facility] Last Admin: 04/03/17 08:31 Dose: 5 mcg Loperamide HCl (Imodium) 2 mg PER TUBE PRN PRN PRN Reason: Diarrhea/Loose Stools Mineral Oil/White Petrolatum (Eucerin Cream) 0 gm TOP BIDPRN PRN PRN Reason: Dry Skin Mirtazapine (Remeron) 15 mg PER TUBE [facility] Last Admin: 04/02/17 20:40 Dose: 15 mg Miscellaneous Medication (Pharmacy To Dose) 1 each IVPB ONE PRN PRN Reason: Pharmacy to dose Stop: 04/29/17 15:10 Ondansetron HCl (Zofran Odt) 4 mg PER TUBE Q6H PRN PRN Reason: Nausea/Vomiting Ondansetron HCl (Zofran) 4 mg IVP Q6H PRN PRN Reason: Nausea/Vomiting Oxybutynin Chloride (Ditropan) 5 mg PO TID [facility] Last Admin: 04/03/17 12:55 Dose: Not Given Oxybutynin Chloride (Ditropan) 5 mg PO NOW [facility] Stop: 04/03/17 14:00 Last Admin: 04/03/17 12:56 Dose: 5 mg Pantoprazole Sodium (Protonix) 40 mg IVP Q12HR [facility] Last Admin: 04/03/17 08:31 Dose: 40 mg Sodium Chloride ([place] Nasal [place] 0.65%) 0 ml EA NARE QIDPRN PRN PRN Reason: Nasal Congestion Sodium Chloride (Flush - Normal Saline) 10 ml IVF Q12HR [place] Sodium Chloride (Flush - Normal Saline) 10 ml IVF PRN PRN PRN Reason: Saline Flush Zolpidem Tartrate (Ambien) 5 mg PER TUBE HSPRN PRN PRN Reason: Insomnia
[2017-04-03 14:06] LABS: Magnesium 1.3 mg/dL (1.6-2.6); Phosphorus 3.5 mg/dL (2.3-4.7)
[2017-04-03 16:30] LABS: Vancomycin, Trough 16.2 ug/mL
[2017-04-03] MEDS: Vancomycin HCl 750 MG in Sodium Chloride 0.9% 250 ML 250 ML IVPB SCH (18:07)
[2017-04-03] MEDS: Mirtazapine 15 MG TAB PER TUBE SCH (20:53)
--- NOTE | 2017-04-03 20:58 | PRG ---
DATE OF SERVICE: 04/03/2017 SUBJECTIVE: Overnight, the patient has done well. She had some minimal hematuria. OBJECTIVE: VITAL SIGNS: She is afebrile with stable vital signs. ABDOMEN: Soft, nontender, nondistended. LABORATORY DATA: Her laboratory data looks good. Her hemoglobin is actually up to 8.1 from 7.4 an d her creatinine has continued to improve, it is now 0.83 from a high of 1.32. We irrigated her chandni dder, irrigated very easily and completely clear. ASSESSMENT AND PLAN: Urinary retention, causing bilateral hydronephrosis and renal failure exacerba larry by dehydration and her creatinine has improved. Her urine output is good. Her hydronephrosis i s improving and may never completely resolve since this is probably a chronic issue. She can be dis charged home with CBI off and follow up next week for a voiding trial.
[2017-04-04] MEDS: Piperacillin/Tazobactam 2.25 GM in Sodium Chloride 0.9% 100 ML IVPB SCH ×3 (02:25→17:34)
[2017-04-04] MEDS: Levothyroxine Sodium 175 MCG TAB PER TUBE SCH (06:01)
[2017-04-04 08:30] LABS: Anion Gap 15 mmol/L (10-20); BUN (Urea Nitrogen) 12 mg/dL (9.8-20.1); Calc. Creatinine Clearance 63 mL/min (70-130); Calcium 9.5 mg/dL (7.8-10.44); Carbon Dioxide 23 mmol/L (22-29); Chloride 108 mmol/L (98-107); Estimated GFR-MDRD 74; Magnesium 1.3 mg/dL (1.6-2.6)
[2017-04-04] MEDS: Ferrous Sulfate 325 MG TAB PO SCH ×2 (08:37→17:34)
[2017-04-04] MEDS: Pantoprazole 40 MG VIAL IVP SCH (08:37)
[2017-04-04] MEDS: Citalopram 20 MG TAB PER TUBE SCH (08:37)
[2017-04-04] MEDS: Folic Acid 1 MG TAB PER TUBE SCH (08:37)
[2017-04-04] MEDS: Cyanocobalamin (Vitamin B-12) 1,000 MCG TAB PER TUBE SCH (08:37)
[2017-04-04] MEDS: Docusate 100 MG CAP PER TUBE SCH (08:37)
[2017-04-04] MEDS: Oxybutynin 5 MG TAB PO SCH ×2 (08:38→17:34)
[2017-04-04] MEDS: HYDROcodone/Acetaminophen 5/325 mg Tablet PER TUBE PRN ×2 (08:49→13:48)
[2017-04-04] MEDS: Liothyronine Sodium 5 MCG TAB PER TUBE SCH (08:50)
[2017-04-04] MEDS ORDERED: Oxybutynin ER 5 MG TAB PO SCH (09:00)
[2017-04-04] MEDS ORDERED: Magnesium Sulfate 4 GM in Sodium Chloride 0.9% 250 ML 250 ML IVPB SCH (09:00)
[2017-04-04] MEDS ORDERED: Potassium Chloride 20 MEQ TAB PO SCH (09:00)
--- NOTE | 2017-04-04 12:02 | DIS ---
DATE OF ADMISSION: 03/30/2017 DATE OF DISCHARGE: 04/04/2017 PRIMARY CARE PHYSICIAN: Dr. Jenni Patterson. DISCHARGE DISPOSITION: alf home. PRIMARY DISCHARGE DIAGNOSES: 1. Acute kidney failure, improved. 2. Aspiration pneumonia. 3. Bilateral hydronephrosis due to urinary retention. 4. Anemia due to acute blood loss. 5. Hypokalemia and hypomagnesemia. 6. Constipation. 7. Esophageal stricture, status post dilatation. 8. Urinary tract infection. 9. Physical deconditioning. SECONDARY DISCHARGE DIAGNOSES: 1. Protein-calorie malnutrition. 2. Hypothyroidism. 3. Hiatal hernia. 4. Gastroesophageal reflux disease. 5. Functional quadriplegia. 6. Chronic obstructive pulmonary disease. 7. Cholelithiasis 8. Anxiety and depression. 9. Normocytic anemia. PRIMARY PROCEDURE/OPERATION: Upper endoscopy and dilatation of esophageal stricture. RADIOLOGICAL INVESTIGATIONS: Abdomen and pelvis CT scan and renal ultrasound. SIGNIFICANT LABORATORY DATA: Hemoglobin 8.1. INR 1.1, creatinine 0.81. Urinalysis suggestive of UTI. Urine culture negative. Stool occult blood negative. DISCHARGE MEDICATIONS: Xanax 0.5 mg p.o. t.i.d. p.r.n., Tylenol 650 mg p.o. t.i.d. p.r.n., Proventil 1 puff inhalation q.i.d. p.r.n., Augmentin 875 mg p.o. b.i.d. for 7 days, aspirin 81 mg p.o. daily, vitamin D3 1000 units p.o. daily, Celexa 20 mg p.o. daily, vitamin B12 1000 mcg p.o. daily, ferrous sulfate 325 mg p.o. b.i.d., folic acid 1 mg p.o. daily, gabapentin 300 mg p.o. in the evening, Synthroid 200 mcg p.o. daily, Cytomel 5 mcg p.o. daily, magnesium oxide 400 mg p.o. b.i.d., Remeron 15 mg p.o. at bedtime, Protonix 40 mg p.o. daily, MiraLax 17 grams p.o. daily, potassium chloride 20 mEq p.o. daily, Inderal 10 mg t.i.d., Wellbutrin 75 mg p.o. b.i.d., tramadol 50 mg p.o. q.i.d. p.r.n. INPATIENT CONSULTANTS: Dr. Vargas was consulted for cholelithiasis and he recommended outpatient evaluation. Dr. Ribeiro was consulted for upper GI bleed and he did EGD and dilatation of esophagus. Dr. Falk was consulted for bilateral hydronephrosis, who recommended to leave Muller catheter in. CONTRAINDICATIONS: None. CODE STATUS: FULL CODE. ALLERGIES: LATEX. DISCHARGE PLAN: Post hospital, the patient will follow up with Dr. Falk in 1 week for a voiding trial. The patient will follow up with primary care physician and Dr. Vargas as instructed. HOSPITAL COURSE: A 56-year-old female, who has above-mentioned medical problem , who had an episode of GI bleed, and that is why she was sent to emergency room for evaluation. In the emergency room, we did CT abdomen and pelvis and we found with bilateral hydronephrosis. She also had acute kidney failure on admission. She was admitted to medical floor. We treated her with Protonix. We hydrated her with IV fluid. Her renal function improved to normal. For hydronephrosis, we consulted Urology and they recommended to do Muller catheter. They are thinking that because of chronic urinary retention, she has bilateral hydronephrosis. Renal ultrasound showed improvement in the hydronephrosis, but it will take time to get better. She was also found with aspiration pneumonia based on CT scan finding and that is why we treated her with vancomycin and Zosyn. On discharge, we changed to Augmentin. Regarding GI bleed, we consulted Dr. Ribeiro and he did upper endoscopy and esophageal dilatation. At this point, the patient is discharged to [facility] with Muller catheter. Muller catheter care will be executed at [facility]. She will follow up with Urology for voiding trial and she will follow up with Dr. Vargas for cholecystectomy as an outpatient basis if needed. The patient is seen and examined in the bedside today. Paper work for discharge done. Discharge medication reconciliation done. Patient had abnormal electrolytes today and yesterday was corrected with replacement. PHYSICAL EXAMINATION: VITAL SIGNS: Currently temperature 98.6, pulse 85, respiratory rate 16, saturation 91%, and blood pressure 153/83, weight 111. GENERAL: The patient is currently alert, awake, in no acute distress. HEAD: Normocephalic, atraumatic. LUNGS: Clear. CARDIAC: S1, S2 regular without any murmur. ABDOMEN: Soft and benign. EXTREMITIES: No edema. NEUROLOGIC: Nonfocal examination. Total time spent on discharge day 31 minutes MTDD
--- NOTE | 2017-04-04 13:29 | PDOC.PN ---
- Subjective Encounter Start Date: 04/04/17 Encounter Start Time: 07:20 Patient seen and examined. No new complaints. No overnight events - Objective Resuscitation Status: Resuscitation Status FULL:Full Resuscitation MAR Reviewed: Yes Vital Signs & Weight: Vital Signs (12 hours) Temp Pulse Resp BP Pulse Ox 04/04/17 08:00 98.6 F 85 16 172/84 H 91 L Weight Admit Weight 111 lb Weight 111 lb I&O: 04/03/17 04/04/17 04/05/17 06:59 06:59 06:59 Intake Total 1900 1300 Output Total 800 950 Balance 1100 350 Result Diagrams: 04/03/17 11:42 04/04/17 08:00 Phys Exam - Physical Examination Constitutional: NAD HEENT: PERRLA, moist MMs, sclera anicteric Neck: no JVD, supple Respiratory: no wheezing, no rales, no rhonchi Cardiovascular: RRR, no significant murmur, no rub Gastrointestinal: soft, non-tender, no distention, positive bowel sounds peg+ Musculoskeletal: no edema, pulses present Neurological: non-focal, normal sensation Lymphatic: no nodes Psychiatric: normal affect Skin: no rash, normal turgor Dx/Plan (1) Acute kidney failure Status: Acute (2) Anemia due to acute blood loss Code(s): D62 - ACUTE POSTHEMORRHAGIC ANEMIA Status: Acute (3) Aspiration pneumonia Code(s): J69.0 - PNEUMONITIS DUE TO INHALATION OF FOOD AND VOMIT Status: Acute (4) Bilateral hydronephrosis Code(s): N13.30 - UNSPECIFIED HYDRONEPHROSIS Status: Acute (5) Constipation Code(s): K59.00 - CONSTIPATION, UNSPECIFIED Status: Acute (6) Esophagitis Code(s): K20.9 - ESOPHAGITIS, UNSPECIFIED Status: Acute (7) GI bleed Code(s): K92.2 - GASTROINTESTINAL HEMORRHAGE, UNSPECIFIED Status: Acute (8) UTI (urinary tract infection) Status: Acute (9) Anemia, normocytic normochromic Code(s): D64.9 - ANEMIA, UNSPECIFIED Status: Chronic (10) Anxiety and depression Code(s): F41.9 - ANXIETY DISORDER, UNSPECIFIED; F32.9 - MAJOR DEPRESSIVE DISORDER, SINGLE EPISODE, UNSPECIFIED Status: Chronic (11) COPD (chronic obstructive pulmonary disease) Status: Chronic (12) Cholelithiases Code(s): K80.20 - CALCULUS OF GALLBLADDER W/O CHOLECYSTITIS W/O OBSTRUCTION Status: Chronic Qualifiers: (13) GERD (gastroesophageal reflux disease) Code(s): K21.9 - GASTRO-ESOPHAGEAL REFLUX DISEASE WITHOUT ESOPHAGITIS Status: Chronic Qualifiers: (14) Hiatal hernia Code(s): K44.9 - DIAPHRAGMATIC HERNIA WITHOUT OBSTRUCTION OR GANGRENE Status: Chronic (15) Hypothyroidism Code(s): E03.9 - HYPOTHYROIDISM, UNSPECIFIED Status: Chronic (16) Physical deconditioning Code(s): R53.81 - OTHER MALAISE Status: Chronic (17) Protein-calorie malnutrition, moderate Code(s): E44.0 - MODERATE PROTEIN-CALORIE MALNUTRITION Status: Chronic (18) Functional quadriplegia Code(s): R53.2 - FUNCTIONAL QUADRIPLEGIA Status: Chronic (19) Hypokalemia Code(s): E87.6 - HYPOKALEMIA Status: Acute (20) S/P dilatation of esophageal stricture Code(s): Z98.890 - OTHER SPECIFIED POSTPROCEDURAL STATES; Z87.19 - PERSONAL HISTORY OF OTHER DISEASES OF THE DIGESTIVE SYSTEM Status: Acute - Plan cont current plan of care, [employer] teacher * replace potassium, magnesium * discharge today * medication reviewed as below * symptomatic treatment. Review of Systems - Review of Systems ENT: negative: Ear Pain, Ear Discharge, Nose Pain, Nose Discharge, Nose Congestion, Mouth Pain, Mouth Swelling, Throat Pain, Throat Swelling, Other Respiratory: negative: Cough, Dry, Shortness of Breath, Hemoptysis, SOB with Excertion, Pleuritic Pain, Sputum, Wheezing Cardiovascular: negative: Chest Pain, Palpitations, Orthopnea, Paroxysmal Noc. Dyspnea, Edema, Light Headedness, Other Gastrointestinal: negative: Nausea, Vomiting, Abdominal Pain, Diarrhea, Constipation, Melena, Hematochezia, Other Genitourinary: negative: Dysuria, Frequency, Incontinence, Hematuria, Retention , Other Musculoskeletal: negative: Neck Pain, Shoulder Pain, Arm Pain, Back Pain, Hand Pain, Leg Pain, Foot Pain, Other - Medications/Allergies Allergies/Adverse Reactions: Allergies Allergy/AdvReac Type Severity Reaction Status Date / Time latex Allergy Verified 12/17/16 20:46 Medications: Current Medications Acetaminophen (Tylenol) 650 mg PER TUBE Q4H PRN PRN Reason: Headache/Fever or Pain Hydrocodone Bitart/Acetaminophen ([place] 5/325) 1 tab PER TUBE Q4H PRN PRN Reason: Moderate Pain (4-6) Last Admin: 04/04/17 08:49 Dose: 1 tab Al Hydroxide/Mg Hydroxide (Maalox) 30 ml PER TUBE Q6H PRN PRN Reason: Heartburn or Indigestion Albuterol/Ipratropium (Duoneb) 3 ml NEB F2LD-ZL PRN PRN Reason: SOB &/or Wheezing Artificial Tears (Tears Naturale) 0 drop EA EYE PRN PRN PRN Reason: Dry Eyes Bisacodyl (Dulcolax) 10 mg MD Q24H PRN PRN Reason: Constipation Cholecalciferol (Vitamin D3) 1,000 units PER TUBE DAILY [facility] Last Admin: 04/04/17 08:38 Dose: 1,000 units Citalopram Hydrobromide (Celexa) 20 mg PER TUBE DAILY [facility] Last Admin: 04/04/17 08:37 Dose: 20 mg Cyanocobalamin (Vitamin B-12) 1,000 mcg PER TUBE DAILY [facility] Last Admin: 04/04/17 08:37 Dose: 1,000 mcg Docusate Sodium (Colace) 100 mg PER TUBE BID [facility] Last Admin: 04/04/17 08:37 Dose: Not Given Ferrous Sulfate (Feosol) 325 mg PO BID-[facility] Last Admin: 04/04/17 08:37 Dose: 325 mg Folic Acid (Folvite) 1 mg PER TUBE DAILY [facility] Last Admin: 04/04/17 08:37 Dose: 1 mg Guaifenesin (Robitussin Sf) 200 mg PO Q4H PRN PRN Reason: Cough Hydralazine HCl (Apresoline) 10 mg SLOW IVP Q4H PRN PRN Reason: Systolic BP > 180 Last Admin: 03/31/17 08:49 Dose: 10 mg Vancomycin HCl 750 mg/ Sodium (Chloride) 250 mls @ 250 mls/hr IVPB 1700 [facility] Last Admin: 04/03/17 18:07 Dose: 250 mls Piperacillin Sod/Tazobactam (Sod 2.25 gm/ Sodium Chloride) 100 mls @ 200 mls/ hr IVPB 0200,0800,1400,2000 [facility] Last Admin: 04/04/17 08:36 Dose: 100 mls Levothyroxine Sodium (Synthroid) 175 mcg PER TUBE 0600 [facility] Last Admin: 04/04/17 06:01 Dose: 175 mcg Liothyronine Sodium (Cytomel) 5 mcg PER TUBE DAILY [facility] Last Admin: 04/04/17 08:50 Dose: 5 mcg Loperamide HCl (Imodium) 2 mg PER TUBE PRN PRN PRN Reason: Diarrhea/Loose Stools Mineral Oil/White Petrolatum (Eucerin Cream) 0 gm TOP BIDPRN PRN PRN Reason: Dry Skin Mirtazapine (Remeron) 15 mg PER TUBE HS [facility] Last Admin: 04/03/17 20:53 Dose: 15 mg Miscellaneous Medication (Pharmacy To Dose) 1 each IVPB ONE PRN PRN Reason: Pharmacy to dose Stop: 04/29/17 15:10 Ondansetron HCl (Zofran Odt) 4 mg PER TUBE Q6H PRN PRN Reason: Nausea/Vomiting Ondansetron HCl (Zofran) 4 mg IVP Q6H PRN PRN Reason: Nausea/Vomiting Oxybutynin Chloride (Ditropan) 5 mg PO TID [facility] Last Admin: 04/04/17 08:38 Dose: 5 mg Pantoprazole Sodium (Protonix) 40 mg IVP Q12HR [facility] Last Admin: 04/04/17 08:37 Dose: 40 mg Sodium Chloride ([place] Nasal [place] 0.65%) 0 ml EA NARE QIDPRN PRN PRN Reason: Nasal Congestion Sodium Chloride (Flush - Normal Saline) 10 ml IVF Q12HR [facility] Last Admin: 04/04/17 08:39 Dose: 10 ml Sodium Chloride (Flush - Normal Saline) 10 ml IVF PRN PRN PRN Reason: Saline Flush Zolpidem Tartrate (Ambien) 5 mg PER TUBE HSPRN PRN PRN Reason: Insomnia
[2017-04-04 14:56] VITALS: BP 130/65; TEMP 98.4
[2017-04-04] MEDS: Vancomycin HCl 750 MG in Sodium Chloride 0.9% 250 ML 250 ML IVPB SCH (17:35)
== END 2017-04-04 18:10 | DRG 682 ==
LOC: ERS 09:22 → T4-A 13:26
PROVIDERS: ADMIT Internal Medicine; ATTEND Internal Medicine
PROC: 0D738ZZ Dilation of Lower Esophagus, Via Natural or Artificial Opening Endoscopic (ICD-10-PCS; principal; 2017-03-31)
DX: N17.9 Acute kidney failure, unspecified (principal); J69.0 Pneumonitis due to inhalation of food and vomit; K92.0 Hematemesis; R53.2 Functional quadriplegia; E44.0 Moderate protein-calorie malnutrition; D62 Acute posthemorrhagic anemia; N39.0 Urinary tract infection, site not specified; K22.2 Esophageal obstruction; Z93.1 Gastrostomy status; E86.0 Dehydration; K80.20 Calculus of gallbladder without cholecystitis without obstruction; N13.30 Unspecified hydronephrosis; K59.00 Constipation, unspecified; R33.9 Retention of urine, unspecified; I10 Essential (primary) hypertension; E03.9 Hypothyroidism, unspecified; E78.5 Hyperlipidemia, unspecified; J44.9 Chronic obstructive pulmonary disease, unspecified; F41.9 Anxiety disorder, unspecified; F32.9 Major depressive disorder, single episode, unspecified; Z68.21 Body mass index [BMI] 21.0-21.9, adult; K44.9 Diaphragmatic hernia without obstruction or gangrene; E63.9 Nutritional deficiency, unspecified; E87.6 Hypokalemia; K21.0 Gastro-esophageal reflux disease with esophagitis
CPT/HCPCS: 36415; 36416; 74177; 76770; 80048; 80053; 80202; 81001; 82271; 82274; 83690; 83735; 84100; 84439; 84443; 84481; 85025; 85610; 85730; 86850; 86860; 86870; 86880; 86900; 86901; 86904; 86905; 86922; 86970; 86978; 87086; 96360; A4216; C9113; G8978-GP-CM; G8979-GP-CK; J0360; J2543; J3370; J3475; J3480; J7050

== ENCOUNTER 2017-04-08 16:21 | Inpatient (IN) | payer MEDICAID, SELFPAY ==
[2017-04-08 17:12] LABS: Bilirubin Unable to Interpret (Negative); Glucose, Urine (Dipstick) Unable to Interpret mg/dL (Negative); Ketone, Urine Unable to Interpret mg/dL (Negative); Nitrite Unable to Interpret (Negative); Urobilinogen UNABLE TO INTERPRET mg/dL (0.2-1.0)
[2017-04-08] MEDS ORDERED: Cefepime 2 GM/10 ML SYR ONE (17:12)
[2017-04-08 17:13] LABS: Blood, Urine Large (Negative)
[2017-04-08 17:37] LABS: Protein, Urine (Dipstick) > or equal to 300 mg/dL (Neg-Trace); RBC/HPF GREATER THAN 50-TNTC HPF (0-3)
[2017-04-08 17:38] LABS: Bacteria/HPF None Seen HPF (None Seen); Hyaline Casts/LPF NONE SEEN LPF (0-3 Hyaline); Squamous Epithelial 0-3 HPF (0-3)
[2017-04-08 17:50] LABS: #Eosinphils 0.4 thou/uL (0.0-0.7); #Lymphocytes 1.6 thou/uL (1.20-3.40); #Monocytes 0.4 thou/uL (0.11-0.59); #Neutrophils 3.2 thou/uL (1.40-6.50); %Basophils 0.4 % (0.0-1.0); %Eosinophils 6.6 % (0.0-10.0); %Lymphocytes 28.1 % (21.0-51.0); %Monocytes 6.7 % (0.0-10.0); Hematocrit 19.2 % (36.0-47.0); Mean Platelet Volume 7.1 fL (7.4-10.4); Red Blood Cell (RBC) Count 2.16 mill/uL (4.20-5.40); White Blood Cell (WBC) Count 5.5 thou/uL (4.8-10.8)
[2017-04-08 17:57] LABS: Oxyhemoglobin 95.2 % (94.0-97.0); Sodium 139 mmol/L (135-148)
[2017-04-08 17:59] LABS: Lactic Acid - Sepsis 1.2 mmol/L (0.5-2.2)
[2017-04-08 17:59] LABS: Mode O2 1L/M NC; Modified Allen's Test NOT DONE; Vent NO
[2017-04-08 18:04] LABS: ALT (SGPT) 17 U/L (8-55); AST (SGOT) 11 U/L (5-34); Alkaline Phosphatase 208 U/L (40-150); Anion Gap 12 mmol/L (10-20); BUN (Urea Nitrogen) 17 mg/dL (9.8-20.1); Bilirubin, Total Less than 0.2 mg/dL (0.2-1.2); Calc. Creatinine Clearance 0 mL/min (70-130); Calcium 8.2 mg/dL (7.8-10.44); Carbon Dioxide 22 mmol/L (22-29); Chloride 106 mmol/L (98-107); Estimated GFR-MDRD 82; Globulin 2.9 g/dL (2.4-3.5); Protein, Total 5.4 g/dL (6.0-8.3)
[2017-04-08 18:08] LABS: Troponin I Less than 0.010 ng/mL (< 0.028)
[2017-04-08] MEDS ORDERED: HYDROcodone/Acetaminophen 5/325 mg Tablet ONE (18:35)
--- NOTE | 2017-04-08 19:09 | RAD ---
CHEST ONE VIEW: History: Sepsis. Comparison: None. FINDINGS: Linear opacities in the left lung base. No pneumothorax. Cardiac silhouette and mediastinal contours within normal limits. No acute osseous abnormality. IMPRESSION: Linear opacity left lung base, likely sequellae of atelectasis. Follow up recommended. POS: [facility]
[2017-04-08] MEDS ORDERED: Acetaminophen 325 MG TAB PO PRN ×2 (19:53→20:49)
[2017-04-08] MEDS ORDERED: Ondansetron HCl/PF 4 MG/2 ML Vial IVP PRN ×2 (19:53→20:49)
[2017-04-08 20:04] LABS: Prothrombin Time 14.3 SEC (12.0-14.7)
[2017-04-08 20:18] LABS: #Eosinphils 0.4 thou/uL (0.0-0.7); #Lymphocytes 1.3 thou/uL (1.20-3.40); #Monocytes 0.3 thou/uL (0.11-0.59); #Neutrophils 3.3 thou/uL (1.40-6.50); %Basophils 0.2 % (0.0-1.0); %Eosinophils 6.6 % (0.0-10.0); %Lymphocytes 24.1 % (21.0-51.0); %Monocytes 6.3 % (0.0-10.0); Hematocrit 18.8 % (36.0-47.0); Mean Platelet Volume 7.3 fL (7.4-10.4); Red Blood Cell (RBC) Count 2.11 mill/uL (4.20-5.40); White Blood Cell (WBC) Count 5.3 thou/uL (4.8-10.8)
--- NOTE | 2017-04-08 20:26 | PDOC.EVN ---
Event Note - Event Note Event Note: [id number] H&P Dictated 1. ACute blood loss anemia 2. Hypovolemic shock 3. Hypotension 4. H/O Depression and anxiety plan: see orders
[2017-04-08] MEDS ORDERED: HYDROcodone/Acetaminophen 5/325 mg Tablet PO PRN ×2 (20:49)
[2017-04-08] MEDS ORDERED: Ondansetron ODT 4 MG TAB SL PRN (20:49)
[2017-04-08] MEDS: Sodium Chloride 0.9% 1,000 ML IV SCH (21:40)
[2017-04-08] MEDS: metroNIDAZOLE 500 MG in Premix Bag 1 BAG IVPB SCH (21:43)
--- NOTE | 2017-04-08 23:39 | PDOC.EVN ---
Event Note - Event Note Event Note: d/w Dr Ambrose & Dr Huerta about CT findings. Will hold CBI for now due to possible fistula and rectal perforation. Will start iv antibiotics.
--- NOTE | 2017-04-08 23:40 | CT ---
CT ABDOMEN AND PELVIS WITHOUT CONTRAST: History: Gross hematuria. Evaluate for bladder mass. Comparison: 03-30-17 FINDINGS: The lung bases demonstrate some central tree and bud opacities in the right lower lobe. This is new. There is a 4 mm nodule in the right middle lobe. No pericardial effusion. There is bilateral moderate to severe hydroureteronephrosis. There is exten sive high density material throughout the urinary bladder. There is gas within the urinary bladder. There is abnormal wall thickening of the posterior and lateral wall of the urinary bladder concernin g for malignancy. There is a focal perforation of the septal wall at 3 o'clock, series 2 image 74, with gas extending outside the luminal confines. There is small volume free fluid adjacent to this. There is extensive retroperitoneal edema and inflammation in the pelvis. There is splenomegaly. Cholelithiasis is present. IMPRESSION: 1. Extensive hemorrhage within the urinary bladder with abnormal mass along the posterior and latera l wall concerning for malignancy. 2. Focal perforation of the rectum left lateral wall at 3 o'clock, series 2 image 73, with extensive retroperitoneal and presacral fluid and inflammation. 3. Severe bilateral hydronephrosis likely sequellae of either post treatment change due to extensive surgical clips and scarring in the pelvis versus obstructive uropathy from a mass. Darshan Arzate, ICU nurse, notified of findings via telephone at 9:00 p.m. Surgical consultation is advised. 4. Abnormal sclerosis of the right superior pubic ramus as well as pubic body concerning for insuffi ciency fracture. POS: [facility]
[2017-04-09] MEDS: Piperacillin/Tazobactam 3.375 GM, Admixture Fee 1 EACH in Sodium Chloride 0.9% 100 ML IVPB SCH ×5 (00:10→23:08)
[2017-04-09 01:59] LABS: Hematocrit 30.8 % (36.0-47.0)
[2017-04-09] MEDS ORDERED: Pantoprazole 40 MG VIAL IVP SCH (02:30)
[2017-04-09 05:31] LABS: Hematocrit 32.7 % (36.0-47.0)
[2017-04-09 05:39] LABS: #Eosinphils 0.6 thou/uL (0.0-0.7); #Lymphocytes 0.8 thou/uL (1.20-3.40); #Monocytes 0.4 thou/uL (0.11-0.59); %Basophils 0.3 % (0.0-1.0); %Eosinophils 10.2 % (0.0-10.0); %Lymphocytes 14.1 % (21.0-51.0); %Monocytes 6.7 % (0.0-10.0); Hematocrit 32.9 % (36.0-47.0); Mean Platelet Volume 6.9 fL (7.4-10.4); Red Blood Cell (RBC) Count 3.75 mill/uL (4.20-5.40); White Blood Cell (WBC) Count 5.9 thou/uL (4.8-10.8)
[2017-04-09] MEDS: metroNIDAZOLE 500 MG in Premix Bag 1 BAG IVPB SCH ×3 (05:51→22:03)
--- NOTE | 2017-04-09 06:27 | HP ---
DATE OF ADMISSION: 04/08/2017 CHIEF COMPLAINT: Gross hematuria. HISTORY OF PRESENT ILLNESS: Patient is a 56-year-old female with past medical history of hypothyroidism, hyperlipidemia, COPD, hypertension, history of cervical cancer, physical deconditioning, functional quadriplegia, now referred from the [facility] because of gross hematuria. The patient was recently discharged from the hospital on 04/04/2017 with the diagnosis of acute kidney injury and hematuria and bilateral hydronephrosis due to urine reduction. Patient had a Muller catheter placed at that time. The patient was seen by Urology and patient was discharged to [facility] with Muller catheter. At the time of discharge patient does have some hematuria which was improving, so patient was discharged, but once the patient reached the [facility], patient' s gross hematuria positive for the last 3 days, so patient was brought to the ER. The patient was also had a GI bleed at the time of admission, which was stable at the time of discharged home. Patient currently denies complains of some lower abdominal pain, cramping kind of pain, constant and mild in intensity. Denies any fever, denies any chills. Denies any nausea, denies any vomiting. Complains of some low grade fever yesterday. Denies any chest pain. Denies any palpations, denies any dizziness. PAST MEDICAL HISTORY: As per HPI. PAST SURGICAL HISTORY: G2, three . SOCIAL HISTORY: Denies smoking, denies alcohol, denies any drugs. FAMILY HISTORY: Positive for heart problems. MEDICATIONS: Reviewed. REVIEW OF SYSTEMS: Constitutional: Positive for fever. Denies any chills. Positive for fatigue. Eyes: Denies any vision problems. Ears: Denies any hearing loss. Neck: Denies any neck pain. Cardiovascular: Denies any chest pain, denies any palpitations. Respiratory system: Denies any cough, denies any sputum production: Gastrointestinal: Positive for abdominal pain. Integumentary: Denies any rash. Musculoskeletal: Denies any joint deformities. All other review of systems are reviewed and are negative. PHYSICAL EXAMINATION: CONSTITUTIONAL/VITAL SIGNS: At the time of H and P performed, blood pressure is 80/40, pulse ox is 98%, heart rate 110. GENERAL: The patient appears tired. HEENT: Anterior naris patent. Teeth intact. Tongue is moist. NECK: Supple, no JVD. CARDIOVASCULAR: S1, S2 present, tachycardic. No murmurs, no rubs, no gallops. RESPIRATORY: No wheezing, no rhonchi. Breath sounds bilaterally. GASTROINTESTINAL: Abdomen is mild tender to palpate. No guarding, no organomegaly. Positive for G-tube. GENITOURINARY: Positive for Muller catheter. MUSCULOSKELETAL: No edema. INTEGUMENTARY: No rashes seen. PSYCHIATRIC: Mood appropriate at this time. CRANIAL NERVE SYSTEM: Cranial nerves intact. Follows commands. Strength intact, sensory intact. LABORATORY DATA: At the time of H and P performed, white count of 5.5, hemoglobin 5.9, platelet count is 243. PT 14.3, INR 1.1. ABG showed pH of 7.41 , pCO2 of 45, pO2 of 89, bicarbonate is 28. BMP showed sodium 136, potassium 4.4, chloride 106, CO2 of 22, BUN of 17, creatinine 0.7, albumin 2.5, globulin 2.9. Urine: Positive for gross hematuria. ASSESSMENT AND PLAN: The patient is 56 years old female. 1. Acute blood loss anemia secondary to gross hematuria. Plan is to type and cross analysis. Total of 3 units of packed RBCs. Plan to monitor the patient closely. 2. Hypovolemic shock. Blood pressure low. Will go ahead and give fluid bolus , we will transfuse platelets. We will admit patient to the ICU for close monitoring. Might need vasopressors as needed. I did notify critical care physician already, we will monitor the patient closely. 3. Gross hematuria. I did speak with the urologist about the patient. He recommended to start continuous bladder irrigation. We will go ahead and start the continuous bladder irrigation as urology recommend. I will start Rocephin empirically to prevent any further infections. 4. History of hypertension. Hold blood pressure medications. 5. History of depression, anxiety, p.r.n. anxiolytics. 6. Pain, p.r.n. pain medications. Plan was discussed. Plan to check KUB also to rule out any other etiology. The case was discussed in detail with the patient. Patient is FULL CODE. MTDD
[2017-04-09] MEDS ORDERED: FLU VACC QS2017-18 36 mo. & older 0.5 ML SYRINGE IM ONE (09:00)
--- NOTE | 2017-04-09 10:06 | CON ---
DATE OF CONSULTATION: 04/09/2017 REASON FOR CONSULTATION: Critical care management. HISTORY OF PRESENT ILLNESS: This patient came in to the hospital last night from a senior care wit h gross hematuria, profound anemia and hypotension. She was resuscitated with packed red blood cell s and is now hemodynamically stable. She has no complaints of pain at this time. Her urine bag has gross hematuria. She has been seen by Urology, but I do not yet know the disposition. PAST MEDICAL HISTORY: 1. Acute kidney injury. 2. Bilateral hydronephrosis. 3. Gastrointestinal bleeding. 4. Chronic obstructive pulmonary disease. 5. Dementia. 6. Hypothyroidism. 7. Hyperlipidemia. 8. Cervical cancer. 9. Quadriplegia. PAST SURGICAL HISTORY: Hysterectomy, and PEG tube placement. SOCIAL HISTORY: Quit smoking about 3 months ago after smoking 2 packs a day for 30 years. Does not consume alcohol. Currently lives in a senior care. FAMILY MEDICAL HISTORY: Remarkable for COPD and stroke. MEDICATIONS PRIOR TO ADMISSION: Tramadol, Wellbutrin, propranolol, potassium chloride, MiraLax, Pro tonix, Remeron, magnesium, Imodium, Cytomel, Synthroid, gabapentin, folic acid, iron sulfate, vitami n B12, citalopram, vitamin D3, Augmentin, Proventil, aspirin, Xanax. CURRENT INPATIENT MEDICATIONS: [place], levofloxacin, metronidazole, Zofran, Protonix. PHYSICAL EXAMINATION: VITAL SIGNS: Temperature 98.1, pulse 100, respirations 13, blood pressure 130/56. GENERAL: She is awake, alert, in no distress. HEENT: Pupils react. Sclerae are anicteric. Oropharynx clear. NECK: No JVD. LUNGS: Clear to auscultation. CARDIAC: S1, S2 regular, without murmur. ABDOMEN: She has a PEG tube in place. No palpable tenderness. EXTREMITIES: No clubbing, cyanosis, or edema. LABORATORY DATA AND X-RAY FINDINGS: Sodium 136, potassium 4.4, chloride 106, CO2 23, BUN 17, creati nine 0.7, glucose 91. White blood cell count 5.9, hematocrit 32.9, platelet count 262. CT of the a bdomen and pelvis demonstrate extensive urinary bladder along with a mass on the posterior wall of t he bladder. There was apparently focal perforation of the rectum with extensive retroperitoneal pre sacral fluid or inflammation. She had bilateral hydronephrosis noted. Chest x-ray demonstrates no mass, effusion or infiltrate. ASSESSMENT: 1. Gross hematuria. 2. Possible bladder wall of malignancy or hematoma. 3. Small rectal perforation. 4. Underlying chronic obstructive pulmonary disease, which is clinically stable. PLAN: 1. Most of the issues here are surgical between General Surgery and Neurology. The patient appears to be hemodynamically stable for a planned operative therapy. From my standpoint, she can be trans ferred out of the ICU at the discretion of the surgical team. Continue the antibiotics. 2. Start nebulization therapy for COPD as needed.
[2017-04-09 10:35] LABS: Hematocrit 30.4 % (36.0-47.0)
--- NOTE | 2017-04-09 10:45 | PDOC.PN ---
- Subjective Encounter Start Date: 04/09/17 Encounter Start Time: 10:50 Subjective: Some pain in rectum and lower abdomen, continued narayan hematuria -: overnight. - Objective MAR Reviewed: Yes Vital Signs & Weight: Vital Signs (12 hours) Temp Pulse Resp Pulse Ox 04/09/17 08:00 98.1 F 95 15 96 04/09/17 07:00 98.1 F 04/09/17 04:00 98.5 F 04/09/17 03:00 98.3 F 04/09/17 02:00 98.8 F 04/09/17 01:05 98.5 F 04/09/17 01:00 98.2 F 04/09/17 00:00 98.0 F 04/08/17 23:00 98.2 F Weight Weight 113 lb 15.664 oz Most Recent Monitor Data Heart Rate from ECG 99 NIBP 131/65 NIBP BP-Mean 96 Respiration from ECG 17 SpO2 98 I&O: 04/08/17 04/09/17 04/10/17 06:59 06:59 06:59 Intake Total 2494 0 Output Total 3065 500 Balance -571 -500 Result Diagrams: 04/09/17 10:17 04/08/17 17:38 Phys Exam - Physical Examination Constitutional: NAD HEENT: moist MMs Respiratory: no wheezing, no rales, no rhonchi, clear to auscultation bilateral Cardiovascular: RRR, no significant murmur Gastrointestinal: soft, positive bowel sounds mild TTP suprapubic, no mass Neurological: non-focal, moves all 4 limbs weak in bilateral legs, mild in arms Psychiatric: normal affect, A&O x 3 Dx/Plan (1) Anemia due to acute blood loss Code(s): D62 - ACUTE POSTHEMORRHAGIC ANEMIA Status: Acute (2) Hematuria Code(s): R31.9 - HEMATURIA, UNSPECIFIED Status: Acute (3) COPD (chronic obstructive pulmonary disease) Status: Chronic (4) Hypothyroidism Code(s): E03.9 - HYPOTHYROIDISM, UNSPECIFIED Status: Chronic (5) Hypertension Code(s): I10 - ESSENTIAL (PRIMARY) HYPERTENSION Status: Chronic - Plan cont current plan of care, continue antibiotics * . - Discharge Day Encounter end time: 11:20
[2017-04-09] MEDS: Sodium Chloride 0.9% 1,000 ML IV SCH ×2 (11:41→18:00)
[2017-04-09] MEDS: HYDROcodone/Acetaminophen 5/325 mg Tablet PO PRN ×2 (12:52→19:57)
[2017-04-09 16:19] LABS: Hematocrit 28.6 % (36.0-47.0)
[2017-04-09] MEDS ORDERED: HYDROcodone/Acetaminophen 10/325 mg Tablet PO PRN (22:43)
[2017-04-10] MEDS: HYDROcodone/Acetaminophen 10/325 mg Tablet PO PRN ×2 (00:12→03:56)
--- NOTE | 2017-04-10 00:54 | CON ---
DATE OF CONSULTATION: 04/09/2017 DATE OF HOSPITAL ADMISSION: 04/08/2017 REASON FOR CONSULTATION: 1. Gross hematuria. 2. Possible bladder mass. 3. Bilateral hydronephrosis. 4. Bilateral hydroureter. 5. History of cervical cancer, status post radiation and chemotherapy as well as hysterectomy. HISTORY OF PRESENT ILLNESS: Ms. Alix Rodriguez is a very pleasant but unfortunate 56-year-old wh ite female with a history of cervical cancer which underwent surgical therapy followed by radiation and chemotherapy. Ms. Rodriguez presented to the emergency department on 04/08/2017 with gross hematur ia from her mcc. Ms. Rodriguez is in a mcc secondary to paraplegia secondary to prob able avascular origin. Ms. Rodriguez admits to being a long-term cigarette smoker and just recently qu it about 3 months ago. She was profoundly anemic at this hospital admission and required blood boudreaux sfusion. She is currently evaluated in the Intensive Care Unit. The patient has been on relatively minimal CBI today with mostly turned off and has blood stained urine without significant obstructiv e clots. Her CBI is essentially turned off at my evaluation of her and she does have red-colored ur ine, but this is actually a small amount of blood. A CT scan was performed at the emergency room evaluation. The patient was suggested possibility of a bladder mass. The patient has a probable clot filled bladder as well. In addition, there is bila teral hydroureter and on one side, an exophytic cyst was seen as well. The patient reports no previ ous urologic evaluations except in conjunction with her cervical cancer many years ago. ALLERGIES: The patient is allergic to LATEX. MEDICATIONS: Complete outpatient medication list includes the followin. Tramadol. 2. Wellbutrin. 3. Propranolol. 4. Potassium chloride. 5. MiraLax. 6. Protonix. 7. Remeron. 8. Magnesium. 9. Imodium. 10. Cytomel. 11. Synthroid. 12. Gabapentin. 13. Folic acid. 14. Iron sulfate. 15. Vitamin B12. 16. Citalopram. 17. Vitamin D3. 18. Augmentin. 19. Proventil. 20. Aspirin. 21. Xanax. PAST MEDICAL HISTORY: 1. History of acute kidney injury. 2. Bilateral hydronephrosis. 3. History of gastrointestinal bleeding. 4. Chronic obstructive pulmonary disease secondary to cigarette smoking. 5. Dementia. 6. Hypothyroidism. 7. Hyperlipidemia. 8. History of cervical cancer which has been treated. 9. Paraplegia likely secondary to stroke or spinal cord stroke. PAST SURGICAL HISTORY: 1. Total abdominal hysterectomy with bilateral salpingo-oophorectomy around 2006. 2. x3, two is Pfannenstiel's and one is a midline infraumbilical surgical incision. 4. PEG tube placement. SOCIAL HISTORY: The patient resides in a mcc secondary to paraplegia. She is a former cig arette smoker, 2 packs per day at times at least 30 years for a total of 60 pack years or more. She does not consume any alcohol and is not a current smoker secondary to her mcc status. FAMILY MEDICAL HISTORY: Notable for COPD and stroke. No family history of genitourinary disorders. PHYSICAL EXAMINATION: VITAL SIGNS: Patient's pulse is 82, respirations 16, O2 saturation on room air is 99%. Current blo od pressure is 133/53. HEENT: Extraocular movements are intact. Sclerae are anicteric. Oropharynx is clear. NECK: Supple. LUNGS: Clear to auscultation bilaterally with COPD type changes. CARDIAC: There is a regular rate and rhythm without murmur, rub or gallop. monitor and storage bin tender shows n ormal sinus rhythm. ABDOMEN: Soft and nontender. A PEG tube is in place. BACK: There is no costovertebral angle tenderness. PELVIC: Deferred to the operative suite. EXTREMITIES: Appear within normal limits. The feet are warm. There is no evidence of clubbing, cy anosis or edema. The feet are plantar flexed probably secondary to the patient's stroke status and resulting paraplegia. There is no evidence of clot along the legs or behind the knees. The patient does not have any ability to move the lower extremities on her own. I do not note spasticity on ex am. Bilateral hamstring is fair at 3+ in all muscle groups. RADIOLOGIC STUDIES: A CT scan of the abdomen and pelvis was performed on 04/08/2017. I reviewed th is study. It shows bilateral hydronephrosis and hydroureter on both sides. The hydronephrosis term inates in the mid pelvis area which would be consistent with the patient's history of previous cervi dev cancer and/or radiation therapy. The bladder contains what appears to be blood and there is que stion as to whether there is a bladder mass present. A Muller catheter is also observed within the p naseem's bladder. There are no obvious stones in her urinary tract. There are gallbladder stones p resent. LABORATORY STUDIES: The patient's white count today is 5.9. Her hemoglobin has decreased to 10.1 f rom a level of 5.7 on admission, hematocrit improved to 32.9 from 18.8 at admission after transfusio ns. Platelet count is 262. Serum chemistries show a potassium of 4.4. Blood urea nitrogen is 17 w ith a creatinine of 0.74 at admission on 04/08/2017 indicating reasonable renal function with an est imated glomerular filtration rate of 82. The patient's alkaline phosphatase elevated at 208. ASSESSMENT AND PLAN: 1. Gross hematuria with possible bladder mass. The patient needs to undergo cystoscopic evaluation and possible transurethral resection of bladder tumor if present. She is a long-term cigarette smo ker and I would suspect that she is at high risk for development of bladder cancer. 2. History of cervical cancer status post radiation therapy and hydronephrosis. The patient has bi lateral hydronephrosis which terminates about at the pelvic brim, which would suggest post-radiation change or cervical cancer mass impingement on the ureters. At the present time, I think the patien t should probably undergo retrograde evaluation to evaluate for obstructive process. She does not a ppear to have a significantly elevated blood urea nitrogen or creatinine, but has relatively little muscle mass. Certainly documentation of her status at this point is valuable. I would defer on ret rograde evaluation and this patient have a true bladder mass is found as bladder cancer spreads in t he urine. The study could also be accomplished by CT IVP as well or a MAG3 renal scan. The patient has adequate renal function for either of those 2 methods. 3. Exophytic lesion or cyst on the patient's left kidney is relatively small at about 1 cm diameter . It is isodense with the patient's renal parenchyma on the noncontrast phase study. This could soni ggest a possible hyperdense cyst or possibly a renal cell carcinoma. This should undergo proper sancho ging assessment. Based on the patient's relatively thin size, a renal ultrasound study could be per formed. Plans for the operative evaluation in this patient due to OR availability, this patient will undergo cystoscopic evaluation of her bladder mass and bleeding on 04/10/2017 unless there is an emergent d ecompensation observed in this patient. Based on the amount of blood being produced, I do not expec t a significant hematocrit drop in this patient over the next 24 hours.
[2017-04-10] MEDS: Sodium Chloride 0.9% 1,000 ML IV SCH ×3 (03:46→22:00)
[2017-04-10 04:13] LABS: #Basophils 0.1 thou/uL (0.0-0.2); #Eosinphils 0.6 thou/uL (0.0-0.7); #Lymphocytes 1.1 thou/uL (1.20-3.40); #Monocytes 0.5 thou/uL (0.11-0.59); #Neutrophils 3.1 thou/uL (1.40-6.50); %Eosinophils 11.3 % (0.0-10.0); %Lymphocytes 20.7 % (21.0-51.0); %Monocytes 8.6 % (0.0-10.0); Hematocrit 26.5 % (36.0-47.0); Mean Platelet Volume 6.8 fL (7.4-10.4); White Blood Cell (WBC) Count 5.3 thou/uL (4.8-10.8)
[2017-04-10 04:35] LABS: Anion Gap 14 mmol/L (10-20); BUN (Urea Nitrogen) 14 mg/dL (9.8-20.1); Calc. Creatinine Clearance 82 mL/min (70-130); Calcium 8.6 mg/dL (7.8-10.44); Carbon Dioxide 24 mmol/L (22-29); Chloride 107 mmol/L (98-107); Estimated GFR-MDRD Greater than 90
[2017-04-10] MEDS: Piperacillin/Tazobactam 3.375 GM, Admixture Fee 1 EACH in Sodium Chloride 0.9% 100 ML IVPB SCH ×3 (05:33→20:00)
[2017-04-10] MEDS: metroNIDAZOLE 500 MG in Premix Bag 1 BAG IVPB SCH ×3 (05:35→22:00)
--- NOTE | 2017-04-10 07:51 | PRG ---
DATE OF SERVICE: 04/10/2017 She is doing well, cystoscopy is expected later today. PHYSICAL EXAMINATION: VITAL SIGNS: Temperature 98.4, pulse 67, blood pressure 94/46, 24 hour intake 2879, output 86522. HEENT: Unremarkable. NECK: No JVD. CHEST: Clear without wheezing. CARDIAC: S1 and S2 regular. ABDOMEN: Soft. EXTREMITIES: No edema. LABORATORY DATA: White blood cell count 5.3, hematocrit 26.5, platelet count 267. Sodium 141, pota ssium 3.6, chloride 107, CO2 24, BUN 14, creatinine 0.6, glucose 87. ASSESSMENT: 1. Bladder mass, gross hematuria. 2. Hypovolemic shock at the time of admission. 3. Question of a small rectal perforation. PLAN: The patient will be transferred out to the floor pending further evaluation by Urology.
[2017-04-10] MEDS: Pantoprazole 40 MG VIAL IVP SCH (08:37)
--- NOTE | 2017-04-10 11:39 | PDOC.PN ---
- Subjective Encounter Start Date: 04/10/17 Encounter Start Time: 11:00 Subjective: continued hematuria and pain in bottom, no other complaints - Objective MAR Reviewed: Yes Vital Signs & Weight: Vital Signs (12 hours) Temp Pulse Resp Pulse Ox 04/10/17 08:00 97.7 F 78 12 93 L 04/10/17 07:00 97.7 F 04/10/17 04:00 98.4 F 04/10/17 00:00 98.6 F Weight Admit Weight 117 lb 8.102 oz Weight 117 lb 11.629 oz Most Recent Monitor Data Heart Rate from ECG 77 NIBP 113/46 NIBP BP-Mean 68 Respiration from ECG 13 SpO2 94 I&O: 04/09/17 04/10/17 04/11/17 06:59 06:59 06:59 Intake Total 2494 2879 400 Output Total 3065 2950 35 Balance -571 -71 365 Result Diagrams: 04/10/17 03:30 04/10/17 03:30 Phys Exam - Physical Examination Constitutional: NAD HEENT: moist MMs Respiratory: no wheezing, no rales, no rhonchi, clear to auscultation bilateral Cardiovascular: RRR, no significant murmur Gastrointestinal: soft, positive bowel sounds poor strength in all extremities Psychiatric: normal affect, A&O x 3 Dx/Plan (1) Anemia due to acute blood loss Code(s): D62 - ACUTE POSTHEMORRHAGIC ANEMIA Status: Acute Plan: drop to 8 today, recheck in AM (2) Hematuria Code(s): R31.9 - HEMATURIA, UNSPECIFIED Status: Acute (3) COPD (chronic obstructive pulmonary disease) Status: Chronic (4) Hypothyroidism Code(s): E03.9 - HYPOTHYROIDISM, UNSPECIFIED Status: Chronic (5) Hypertension Code(s): I10 - ESSENTIAL (PRIMARY) HYPERTENSION Status: Chronic - Plan cont current plan of care, DVT proph w/SCDs plan for cystoscopy this evening * . - Discharge Day Encounter end time: 11:30
[2017-04-10] MEDS: Morphine PF 1 MG/ML SYR IV PRN (15:13)
[2017-04-10 19:35] LABS: Hematocrit 29.9 % (36.0-47.0)
[2017-04-10] MEDS ORDERED: Iothalamate Meglumine 60% 50 ML VIAL FS ONE ×2 (19:48→21:21)
[2017-04-10] MEDS ORDERED: Fentanyl 250 MCG/5 ML VIAL ONE (20:03)
[2017-04-10] MEDS ORDERED: Midazolam HCl 2 mg/2 ml Vial ONE (20:03)
[2017-04-10] MEDS ORDERED: PHENYLEPHRINE-NS 100 MCG/ML 10 ML SYRINGE ONE (20:20)
[2017-04-10] MEDS ORDERED: Glycopyrrolate 0.2 MG/ML 5 ML SYRINGE ONE (20:20)
[2017-04-10] MEDS ORDERED: Propofol 200 MG/20 ML VIAL ONE (20:20)
[2017-04-10] MEDS ORDERED: Lidocaine 1% PF 5 ML VIAL ONE (20:20)
[2017-04-10] MEDS ORDERED: Ondansetron HCl/PF 4 MG/2 ML Vial ONE (20:20)
[2017-04-10] MEDS ORDERED: Fentanyl 100 MCG/2 ML VIAL ONE ×3 (22:02→22:39)
[2017-04-10] MEDS ORDERED: Ondansetron HCl/PF 4 MG/2 ML Vial IVP PRN (22:02)
[2017-04-10] MEDS ORDERED: Promethazine HCl 25 MG/ML VIAL SLOW IVP PRN (22:02)
[2017-04-10] MEDS ORDERED: Promethazine HCl 25 MG/ML VIAL IM PRN (22:02)
[2017-04-10] MEDS ORDERED: HYDROmorphone 2 MG/ML VIAL SLOW IVP PRN (22:02)
--- NOTE | 2017-04-10 23:51 | PRG ---
DATE OF HOSPITAL ADMISSION: 04/08/2017 DATE OF INTERVAL PROGRESS NOTE: 04/10/2017 INITIAL REASON FOR CONSULTATION: 1. Gross hematuria. 2. Possible bladder mass. 3. Bilateral hydronephrosis. 4. Bilateral hydroureter. 5. History of cervical cancer, status post radiation and chemotherapy as well as hysterectomy. BRIEF HISTORY: Ms. Alix Rodriguez is a pleasant 56-year-old white female with a history of cervical cancer, which underwent surgical therapy followed by radiation and chemotherapy. The patient prese nted to the emergency department at [facility] on 04/08/2017 with gross hemat uria from her custodial. Her heart rate is in a custodial secondary to paraplegia secondary t o possible vascular origin. Ms. Rodriguez is a long-term cigarette smoker and just recently quit about 3 months ago with at least a [id number] cigarette smoking history. INTERVAL PROGRESS: Ms. Rodriguez has continued to have gross hematuria and falling hematocrit while in the Intensive Care Unit, she did receive a transfusion this morning, laboratories after the transfu kimberly remain pending. Ms. Rodriguez is otherwise doing well. PHYSICAL EXAMINATION: VITAL SIGNS: Temperature 97.6, pulse 87, respirations 16, O2 saturations 94%, blood pressure is 139 /76. GENERAL: This is a pleasant white female, in no apparent distress. HEAD, EYES, EARS, NOSE, AND THROAT: Extraocular movements are intact. Sclerae are anicteric. Orop harynx is clear. NECK: Supple. LUNGS: Clear to auscultation bilaterally. CARDIAC: There is a regular rate and rhythm. ABDOMEN: Soft and nontender superiorly. There is a little bit of tenderness in the lower abdomen. The patient has a PEG tube in place in her abdomen as well. PELVIC: Deferred to the operative suite. EXTREMITIES: Appear within normal limits. Feet are warm. There is no clubbing, cyanosis, or edema . The patient has apparent paraplegia resulting from either a stroke or some other neurologic cause . LABORATORY AND X-RAY FINDINGS: Hemoglobin prior to transfusion was 8.6 with hematocrit of 26.5. Ur ine culture obtained on 04/08/2017 showed no growth at 36 hours. Electrolytes appeared to be within normal limits on the test from this morning. The patient has an estimated glomerular filtration ra te of greater than 90. ASSESSMENT AND PLAN: Gross hematuria. No other clear origin of the patient's falling hematocrit at the present time. Plan will be to proceed to the operative suite for transurethral resection of bl adder mass, clot evacuation, possible retrograde pyelography if indicated.
[2017-04-11] MEDS: Piperacillin/Tazobactam 3.375 GM, Admixture Fee 1 EACH in Sodium Chloride 0.9% 100 ML IVPB SCH ×5 (00:20→23:03)
[2017-04-11] MEDS: Morphine PF 1 MG/ML SYR IV PRN (00:29)
[2017-04-11] MEDS: Sodium Chloride 0.9% 1,000 ML IV SCH ×2 (03:05→17:44)
[2017-04-11] MEDS: metroNIDAZOLE 500 MG in Premix Bag 1 BAG IVPB SCH (05:13)
[2017-04-11 05:42] LABS: #Lymphocytes 0.7 thou/uL (1.20-3.40); #Monocytes 0.1 thou/uL (0.11-0.59); #Neutrophils 4.2 thou/uL (1.40-6.50); %Eosinophils 0.3 % (0.0-10.0); %Lymphocytes 14.1 % (21.0-51.0); %Monocytes 1.8 % (0.0-10.0); Hematocrit 33.3 % (36.0-47.0); Mean Platelet Volume 7.1 fL (7.4-10.4); Red Blood Cell (RBC) Count 3.74 mill/uL (4.20-5.40)
[2017-04-11 05:58] LABS: Anion Gap 14 mmol/L (10-20); BUN (Urea Nitrogen) 11 mg/dL (9.8-20.1); Calc. Creatinine Clearance 93 mL/min (70-130); Carbon Dioxide 23 mmol/L (22-29); Chloride 106 mmol/L (98-107); Estimated GFR-MDRD Greater than 90
--- NOTE | 2017-04-11 07:16 | RAD ---
BILATERAL RETROGRADE IVP: (FLUROSCOPIC IMAGING) Date: 04/10/17 CLINICAL HISTORY: Bladder abnormality, bladder mass. FINDINGS: Fluoroscopic imaging reveals catheter and guidewire placement within each ureter with subsequent con trast opacification in a retrograde fashion with mild to moderate prominence of each renal collectin g system resulting in caliceal blunting. There is also mild to moderate hydroureter bilaterally. Uri nary bladder is not reliably assessed on this set of images. Focal kinking is present at each mid ureter. No obvious focal filling defect of persistence is seen within the contrast opacified portions of the bilateral renal urinary collection systems. IMPRESSION: Retrograde instillation of contrast within each urinary collection system revealing a mild to modera te degree of dilatation. POS: LIDYA
--- NOTE | 2017-04-11 08:10 | OP ---
DATE OF PROCEDURE: 04/10/2017 PREOPERATIVE DIAGNOSES: 1. Bladder mass. 2. Gross hematuria without control. 3. History of cervical cancer. 4. Status post chemo and radiation therapy to the pelvis. POSTOPERATIVE DIAGNOSES: 1. Bladder mass. 2. Gross hematuria without control. 3. History of cervical cancer. 4. Status post chemo and radiation therapy to the pelvis. 5. 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 OPERATIVE PROCEDURES: 1. Transurethral resection of bladder mass greater than 5 centimeters, 52863. 2. Bilateral retrograde pyelography, 08133. SURGEON: Kael Huerta M.D. BRIEF HISTORY AND INDICATION FOR PROCEDURE: Ms. Alix Rodriguez is a pleasant 56-year-old white female with an unfortunate history of cervical cancer. She underwent previous surgical therapy incl uding hysterectomy followed by external beam radiation therapy and chemotherapy. Sometime post this treatment, she developed bilateral lower extremity paraplegia and has otherwise been doing well unt il recently when she developed gross per rectum bleeding. She underwent gastroenterology procedures and was ultimately discharged home from the hospital. The patient subsequently presented to the em ergency department with severe anemia, tachycardia and gross bleeding per urethra. The patient was admitted and placed on bladder CBI subsequently evaluated by General Surgery and subsequently I was consulted to evaluate and assessed the patient for her gross hematuria. The patient opted to proceed to the operative suite for evaluation and treatment of her gross hematu pradeep tonight. PROCEDURE IN DETAIL: The patient was appropriately identified in the preoperative holding area. TE D hose and sequential compression devices were applied to bilateral lower extremities. A post-boudreaux sfusion hematocrit was obtained, which returned at 29. The patient was transported to the operative suite, placed in the supine position on a cysto fluorographic table. She received general anesthes ia by endotracheal means and was prepped and draped in the usual sterile fashion after being placed in the supine lithotomy position. The patient's indwelling CBI catheter was removed during the cour se of her prep. The patient was evaluated cystoscopically and was found to have a bladder full of c lot. We could not clearly identify what the source of the bleeding was at that point. We performed ellick evacuation of clot, which took about 30 minutes. After removing all the large clots from th e patient's bladder we performed cystoscopic evaluation and identified multiple bleeding areas withi n her bladder. She had an apparent fracture line along the previous radiation treatment to the blad aga. Both ureteric orifices were identified, but were difficult, particularly on the left side to s ee. There was a large amount of edema in the more normal portions of the bladder and a large mass o f bleeding tissue superior to the ureteric orifices in the posterior aspect of the bladder. Portion s of the anterior part of the bladder also had irritated looking appearance to it. Some of these ar eas looked almost papillary. We performed fulguration of the bulk of the bleeding areas and the pat ient's bladder to gain adequate control and adequate hemostasis. We resected some areas of the grea ter than 5 cm mass for permanent section given the history of cervical cancer as well as extensive c igarette smoking history. All of the bleeding areas were fulgurated to completion using the gyrus r esectoscope bipolar device. After adequate hemostasis was obtained, we performed bilateral retrogra de pyelography to define the patient's ureteral obstruction and hydronephrosis. The patient had christine ateral ureteropelvic junction narrowed areas which could be secondary to vascular compromise. These were relatively fixed defects and were in areas where the ureters were seen to kink. Below this, t here was a narrowing more distally close to the patient's bladder. She had poor drainage from both the left and right collecting system in the supine position during the course of the followup evalua tion. Cytologies were collected from both ureters. Specimens were obtained from the patient's blad aga mass. These were all sent for pathologic assessment. Estimated blood loss from the surgical pr ocedure was 0 mL approximately 500 mL of formed clot was removed from the patient's bladder. DRAINS/TUBES: A three-way Muller catheter was placed at the close of the procedure, a 22 Danish sili cone due to the patient's LATEX allergy and placed to low rate CBI. The patient tolerated the proce dure well with no evidence of complications and was transported to the postoperative recovery area i n good condition.
[2017-04-11] MEDS: HYDROcodone/Acetaminophen 10/325 mg Tablet PO PRN ×2 (08:59→19:34)
[2017-04-11] MEDS: Pantoprazole 40 MG VIAL IVP SCH (09:02)
--- NOTE | 2017-04-11 13:09 | PDOC.PN ---
- Subjective Encounter Start Date: 04/11/17 Encounter Start Time: 10:00 Subjective: no further bleeding per urethra -: had her tong removed per patient -: no abd pain - Objective MAR Reviewed: Yes Vital Signs & Weight: Vital Signs (12 hours) Temp Pulse Resp BP Pulse Ox 04/11/17 11:53 98 F 76 16 132/75 95 04/11/17 08:00 98 F 76 16 04/11/17 07:50 98.2 F 103 H 16 123/73 96 04/11/17 05:00 101 H 04/11/17 03:57 97.8 F 110 H 18 148/85 H 96 Weight Admit Weight 117 lb 8.102 oz Weight 117 lb 11.629 oz Most Recent Monitor Data Heart Rate from ECG 86 NIBP 128/82 NIBP BP-Mean 91 Respiration from ECG 11 SpO2 96 I&O: 04/10/17 04/11/17 04/12/17 06:59 06:59 06:59 Intake Total 2879 2504 Output Total 2950 1785 Balance -71 719 Result Diagrams: 04/11/17 05:02 04/11/17 05:02 Phys Exam - Physical Examination HEENT: PERRLA, moist MMs Neck: no JVD, supple Respiratory: no wheezing, no rales Cardiovascular: RRR, no significant murmur Gastrointestinal: soft, non-tender, positive bowel sounds Musculoskeletal: no edema, pulses present Neurological: non-focal, moves all 4 limbs has paraparesis of LE Psychiatric: A&O x 3 Dx/Plan (1) Bladder mass Code(s): N32.89 - OTHER SPECIFIED DISORDERS OF BLADDER Status: Acute Comment : likely radiation cystitis, s/p cystoscopy 04/10/2017 with bx (2) Hematuria Code(s): R31.9 - HEMATURIA, UNSPECIFIED Status: Acute Comment: resolving (3) Hypertension Code(s): I10 - ESSENTIAL (PRIMARY) HYPERTENSION Status: Chronic Qualifiers: Hypertension type: essential hypertension Qualified Code(s): I10 - Essential (primary) hypertension (4) Anemia due to acute blood loss Code(s): D62 - ACUTE POSTHEMORRHAGIC ANEMIA Status: Acute (5) Bilateral hydronephrosis Code(s): N13.30 - UNSPECIFIED HYDRONEPHROSIS Status: Acute (6) Anxiety and depression Code(s): F41.9 - ANXIETY DISORDER, UNSPECIFIED; F32.9 - MAJOR DEPRESSIVE DISORDER, SINGLE EPISODE, UNSPECIFIED Status: Chronic (7) COPD (chronic obstructive pulmonary disease) Status: Chronic Qualifiers: COPD type: chronic bronchitis (8) GERD (gastroesophageal reflux disease) Code(s): K21.9 - GASTRO-ESOPHAGEAL REFLUX DISEASE WITHOUT ESOPHAGITIS Status: Chronic Qualifiers: Esophagitis presence: esophagitis presence not specified Qualified Code(s) : K21.9 - Gastro-esophageal reflux disease without esophagitis (9) Hiatal hernia Code(s): K44.9 - DIAPHRAGMATIC HERNIA WITHOUT OBSTRUCTION OR GANGRENE Status: Chronic (10) Hypothyroidism Code(s): E03.9 - HYPOTHYROIDISM, UNSPECIFIED Status: Chronic Qualifiers: Hypothyroidism type: unspecified Qualified Code(s): E03.9 - Hypothyroidism , unspecified (11) Protein-calorie malnutrition, moderate Code(s): E44.0 - MODERATE PROTEIN-CALORIE MALNUTRITION Status: Chronic (12) Cervical cancer Code(s): C53.9 - MALIGNANT NEOPLASM OF CERVIX UTERI, UNSPECIFIED Status: Chronic Comment: h/o hysterectomy with radiation and chemotherapy (13) Fracture of right superior pubic ramus Code(s): S32.511A - FRACTURE OF SUPERIOR RIM OF RIGHT PUBIS, INIT FOR CLOS FX Status: Acute Qualifiers: Encounter type: subsequent encounter Fracture type: closed - Plan cbc/bmp in am -: cytology and bx has been sent from cystoscopy yesterday -: Hb is 10 g this am, is on reg diet now -: ?rectal perf, per gen surgery advice -: is on zosyn, will stop levaq and flagyl * . Review of Systems - Medications/Allergies Allergies/Adverse Reactions: Allergies Allergy/AdvReac Type Severity Reaction Status Date / Time latex Allergy Verified 12/17/16 20:46 Medications: Current Medications Acetaminophen (Tylenol) 650 mg PO Q4H PRN PRN Reason: Headache/Fever or Pain Hydrocodone Bitart/Acetaminophen ([place] 10/325) 1 tab PO Q4H PRN PRN Reason: PAIN SCALE 1-5 Hydrocodone Bitart/Acetaminophen ([place] 10/325) 2 tab PO Q4H PRN PRN Reason: PAIN SCALE 6-10 Last Admin: 04/11/17 08:59 Dose: 2 tab Albuterol/Ipratropium (Duoneb) 3 ml NEB [id number] PRN PRN Reason: SOB &/or Wheezing Sodium Chloride (Normal Saline 0.9%) 1,000 mls @ 100 mls/hr IV .Q10H [facility] Last Admin: 04/11/17 03:05 Dose: 1,000 mls Levofloxacin 750 mg/ Device 150 mls @ 100 mls/hr IVPB Q24HR [facility] Last Admin: 04/11/17 01:27 Dose: 150 mls Metronidazole 500 mg/ Device 100 mls @ 100 mls/hr IVPB Q8HR [facility] Last Admin: 04/11/17 05:13 Dose: 100 mls Piperacillin Sod/Tazobactam Sod 3.375 gm/ Miscellaneous Medication 1 each/ Sodium Chloride 100 mls @ 200 mls/hr IVPB Q6HR [facility] Last Admin: 04/11/17 12:01 Dose: 100 mls Morphine Sulfate (Duramorph) 2 mg IV Q3H PRN PRN Reason: Moderate to Severe Pain (6-10) Last Admin: 04/11/17 00:29 Dose: 2 mg Ondansetron HCl (Zofran) 4 mg IVP Q6H PRN PRN Reason: Nausea/Vomiting Pantoprazole Sodium (Protonix) 40 mg IVP DAILY [facility] Last Admin: 04/11/17 09:02 Dose: 40 mg Sodium Chloride (Flush - Normal Saline) 10 ml IVF Q12HR [facility] Last Admin: 04/11/17 09:02 Dose: 10 ml Sodium Chloride (Flush - Normal Saline) 10 ml IVF PRN PRN PRN Reason: Saline Flush Sodium Chloride (Flush - Normal Saline) 10 ml IV DAILY [facility] Last Admin: 04/11/17 09:02 Dose: Not Given
[2017-04-12] MEDS: Piperacillin/Tazobactam 3.375 GM, Admixture Fee 1 EACH in Sodium Chloride 0.9% 100 ML IVPB SCH ×3 (05:50→18:30)
[2017-04-12] MEDS: Pantoprazole 40 MG VIAL IVP SCH (09:20)
[2017-04-12] MEDS: Morphine PF 1 MG/ML SYR IV PRN ×3 (10:35→20:33)
[2017-04-12] MEDS: hydrALAZINE 20 MG/ML VIAL SLOW IVP PRN ×2 (10:37→17:01)
--- NOTE | 2017-04-12 10:49 | PDOC.PN ---
- Subjective Encounter Start Date: 04/12/17 Encounter Start Time: 07:40 -: old records requested/rev Patient seen and examined. No new complaints. No overnight events - Objective MAR Reviewed: Yes Vital Signs & Weight: Vital Signs (12 hours) Temp Pulse Resp BP BP Pulse Ox 04/12/17 10:37 72 186/84 H 04/12/17 08:00 98.0 F 72 16 184/78 H 96 04/12/17 04:43 97.6 F 60 18 167/65 H 95 04/12/17 00:23 97.9 F 77 18 143/73 H 98 Weight Admit Weight 117 lb 8.102 oz Weight 1.88 oz Most Recent Monitor Data Heart Rate from ECG 86 NIBP 128/82 NIBP BP-Mean 91 Respiration from ECG 11 SpO2 96 I&O: 04/11/17 04/12/17 04/13/17 06:59 06:59 06:59 Intake Total 2504 Output Total 1785 Balance 719 Result Diagrams: 04/11/17 05:02 04/11/17 05:02 Phys Exam - Physical Examination Constitutional: NAD HEENT: PERRLA, moist MMs, sclera anicteric Neck: no JVD, supple Respiratory: no wheezing, no rales, no rhonchi Cardiovascular: RRR, no significant murmur, no rub Gastrointestinal: soft, non-tender, no distention, positive bowel sounds peg+ Musculoskeletal: no edema, pulses present Neurological: non-focal Lymphatic: no nodes Psychiatric: normal affect, A&O x 3 Skin: no rash, normal turgor Dx/Plan (1) Anemia due to acute blood loss Code(s): D62 - ACUTE POSTHEMORRHAGIC ANEMIA Status: Acute (2) Bilateral hydronephrosis Code(s): N13.30 - UNSPECIFIED HYDRONEPHROSIS Status: Acute (3) Bladder mass Code(s): N32.89 - OTHER SPECIFIED DISORDERS OF BLADDER Status: Acute Comment : likely radiation cystitis, s/p cystoscopy 04/10/2017 with bx (4) Esophagitis Code(s): K20.9 - ESOPHAGITIS, UNSPECIFIED Status: Acute (5) Fracture of right superior pubic ramus Code(s): S32.511A - FRACTURE OF SUPERIOR RIM OF RIGHT PUBIS, INIT FOR CLOS FX Status: Acute Qualifiers: Encounter type: subsequent encounter Fracture type: closed (6) Hematuria Code(s): R31.9 - HEMATURIA, UNSPECIFIED Status: Acute Comment: resolving (7) Anemia, normocytic normochromic Code(s): D64.9 - ANEMIA, UNSPECIFIED Status: Chronic (8) Anxiety and depression Code(s): F41.9 - ANXIETY DISORDER, UNSPECIFIED; F32.9 - MAJOR DEPRESSIVE DISORDER, SINGLE EPISODE, UNSPECIFIED Status: Chronic (9) COPD (chronic obstructive pulmonary disease) Status: Chronic Qualifiers: COPD type: chronic bronchitis (10) Cervical cancer Code(s): C53.9 - MALIGNANT NEOPLASM OF CERVIX UTERI, UNSPECIFIED Status: Chronic Comment: h/o hysterectomy with radiation and chemotherapy (11) Cholelithiases Code(s): K80.20 - CALCULUS OF GALLBLADDER W/O CHOLECYSTITIS W/O OBSTRUCTION Status: Chronic Qualifiers: (12) Functional quadriplegia Code(s): R53.2 - FUNCTIONAL QUADRIPLEGIA Status: Chronic (13) GERD (gastroesophageal reflux disease) Code(s): K21.9 - GASTRO-ESOPHAGEAL REFLUX DISEASE WITHOUT ESOPHAGITIS Status: Chronic Qualifiers: Esophagitis presence: esophagitis presence not specified Qualified Code(s) : K21.9 - Gastro-esophageal reflux disease without esophagitis (14) Hiatal hernia Code(s): K44.9 - DIAPHRAGMATIC HERNIA WITHOUT OBSTRUCTION OR GANGRENE Status: Chronic (15) Hypertension Code(s): I10 - ESSENTIAL (PRIMARY) HYPERTENSION Status: Chronic Qualifiers: Hypertension type: essential hypertension Qualified Code(s): I10 - Essential (primary) hypertension (16) Hypothyroidism Code(s): E03.9 - HYPOTHYROIDISM, UNSPECIFIED Status: Chronic Qualifiers: Hypothyroidism type: unspecified Qualified Code(s): E03.9 - Hypothyroidism , unspecified (17) Physical deconditioning Code(s): R53.81 - OTHER MALAISE Status: Chronic (18) Protein-calorie malnutrition, moderate Code(s): E44.0 - MODERATE PROTEIN-CALORIE MALNUTRITION Status: Chronic - Plan cont current plan of care, continue antibiotics * continue zosyn * follow up on pathology report * urology following * medication reviewed as below * symptomatic treatment. Review of Systems - Review of Systems ENT: negative: Ear Pain, Ear Discharge, Nose Pain, Nose Discharge, Nose Congestion, Mouth Pain, Mouth Swelling, Throat Pain, Throat Swelling, Other Respiratory: negative: Cough, Dry, Shortness of Breath, Hemoptysis, SOB with Excertion, Pleuritic Pain, Sputum, Wheezing Cardiovascular: negative: Chest Pain, Palpitations, Orthopnea, Paroxysmal Noc. Dyspnea, Edema, Light Headedness, Other Gastrointestinal: negative: Nausea, Vomiting, Abdominal Pain, Diarrhea, Constipation, Melena, Hematochezia, Other Genitourinary: negative: Dysuria, Frequency, Incontinence, Hematuria, Retention , Other Musculoskeletal: negative: Neck Pain, Shoulder Pain, Arm Pain, Back Pain, Hand Pain, Leg Pain, Foot Pain, Other - Medications/Allergies Allergies/Adverse Reactions: Allergies Allergy/AdvReac Type Severity Reaction Status Date / Time latex Allergy Verified 12/17/16 20:46 Medications: Current Medications Acetaminophen (Tylenol) 650 mg PO Q4H PRN PRN Reason: Headache/Fever or Pain Hydrocodone Bitart/Acetaminophen ([place] 10/325) 1 tab PO Q4H PRN PRN Reason: PAIN SCALE 1-5 Hydrocodone Bitart/Acetaminophen ([place] 10/325) 2 tab PO Q4H PRN PRN Reason: PAIN SCALE 6-10 Last Admin: 04/11/17 19:34 Dose: 2 tab Albuterol/Ipratropium (Duoneb) 3 ml NEB [id number] PRN PRN Reason: SOB &/or Wheezing Hydralazine HCl (Apresoline) 10 mg SLOW IVP Q4H PRN PRN Reason: HYPERTENSION Last Admin: 04/12/17 10:37 Dose: 10 mg Piperacillin Sod/Tazobactam Sod 3.375 gm/ Miscellaneous Medication 1 each/ Sodium Chloride 100 mls @ 200 mls/hr IVPB Q6HR [facility] Last Admin: 04/12/17 05:50 Dose: 100 mls Sodium Chloride (Normal Saline 0.9%) 1,000 mls @ 50 mls/hr IV .Q20H [facility] Last Admin: 04/11/17 17:44 Dose: Not Given Morphine Sulfate (Duramorph) 2 mg IV Q3H PRN PRN Reason: Moderate to Severe Pain (6-10) Last Admin: 04/12/17 10:35 Dose: 2 mg Ondansetron HCl (Zofran) 4 mg IVP Q6H PRN PRN Reason: Nausea/Vomiting Pantoprazole Sodium (Protonix) 40 mg IVP DAILY [facility] Last Admin: 04/12/17 09:20 Dose: 40 mg Sodium Chloride (Flush - Normal Saline) 10 ml IVF Q12HR [facility] Last Admin: 04/12/17 09:19 Dose: 10 ml Sodium Chloride (Flush - Normal Saline) 10 ml IVF PRN PRN PRN Reason: Saline Flush Sodium Chloride (Flush - Normal Saline) 10 ml IV DAILY [facility] Last Admin: 04/12/17 09:20 Dose: 10 ml
[2017-04-12] MEDS: Sodium Chloride 0.9% 1,000 ML IV SCH (14:20)
[2017-04-12] MEDS ORDERED: Senokot 8.6 MG TAB PO PRN (15:32)
[2017-04-12] MEDS ORDERED: Chloraseptic Spray 180 ml Bottle PO PRN (15:32)
[2017-04-12] MEDS ORDERED: Sodium Chloride 0.65% Nasal 44 ML BOT EA NARE PRN (15:32)
[2017-04-12] MEDS ORDERED: Ondansetron ODT 4 MG TAB PO PRN (15:32)
[2017-04-12] MEDS ORDERED: Benzonatate 100 MG CAP PO PRN (15:32)
[2017-04-12] MEDS ORDERED: Milk Of Magnesia 30 ML UDCUP PO PRN (15:32)
[2017-04-12] MEDS ORDERED: Diabetic Tussin 200 MG/10 ML UDCUP PO PRN (15:32)
[2017-04-12] MEDS ORDERED: Artificial Tear Sol 15 ML BOT EA EYE PRN (15:32)
[2017-04-12] MEDS ORDERED: Calcium Carbonate 500 MG ChewTAB PO PRN (15:32)
[2017-04-12] MEDS ORDERED: Eucerin (Mineral Oil/Petrolatum,White) 30 gm Jar TOP PRN (15:32)
[2017-04-12] MEDS ORDERED: HYDROcodone/Acetaminophen 5/325 mg Tablet PO PRN (15:32)
[2017-04-12] MEDS ORDERED: Mag-Al 1200 mg/1200 mg/30 ML UDCUP PO PRN (15:32)
[2017-04-12] MEDS ORDERED: Loratadine 10 MG TAB PO PRN (15:32)
[2017-04-12] MEDS ORDERED: Loperamide HCl 2 MG CAP PO PRN (15:32)
[2017-04-12] MEDS ORDERED: Temazepam 15 MG CAP PO PRN (15:32)
[2017-04-12] MEDS ORDERED: Polyethylene Glycol 3350 17 GM Packet PO PRN (15:33)
[2017-04-12] MEDS: ALPRAZolam 0.5 MG TAB PO PRN (17:02)
[2017-04-12] MEDS: Ferrous Sulfate 325 MG TAB PO SCH (18:15)
[2017-04-12] MEDS: Mirtazapine 15 MG TAB PO SCH (20:27)
[2017-04-12] MEDS: Famotidine 20 MG TAB PO SCH (20:27)
[2017-04-12] MEDS: Folic Acid 1 MG TAB PO SCH (20:28)
[2017-04-12] MEDS: buPROPion HCl 75 MG TAB PO SCH (20:28)
[2017-04-12] MEDS: Magnesium Oxide 400 MG TAB PO SCH (20:28)
[2017-04-12] MEDS: Gabapentin 300 MG CAP PO SCH (20:28)
[2017-04-13] MEDS: Piperacillin/Tazobactam 3.375 GM, Admixture Fee 1 EACH in Sodium Chloride 0.9% 100 ML IVPB SCH ×4 (00:03→17:49)
[2017-04-13] MEDS: Levothyroxine Sodium 100 MCG TAB PO SCH (05:24)
[2017-04-13] MEDS: Liothyronine Sodium 5 MCG TAB PO SCH (05:25)
[2017-04-13] MEDS: Sodium Chloride 0.9% 1,000 ML IV SCH ×2 (05:25→15:46)
[2017-04-13 07:57] LABS: #Eosinphils 0.5 thou/uL (0.0-0.7); #Lymphocytes 1.1 thou/uL (1.20-3.40); #Monocytes 0.5 thou/uL (0.11-0.59); #Neutrophils 3.1 thou/uL (1.40-6.50); %Basophils 0.8 % (0.0-1.0); %Eosinophils 9.1 % (0.0-10.0); %Lymphocytes 20.3 % (21.0-51.0); %Monocytes 10.1 % (0.0-10.0); Hematocrit 35.9 % (36.0-47.0); Mean Platelet Volume 6.7 fL (7.4-10.4); White Blood Cell (WBC) Count 5.1 thou/uL (4.8-10.8)
[2017-04-13 08:16] LABS: Anion Gap 14 mmol/L (10-20); BUN (Urea Nitrogen) 8 mg/dL (9.8-20.1); Calc. Creatinine Clearance 88 mL/min (70-130); Calcium 9.1 mg/dL (7.8-10.44); Carbon Dioxide 22 mmol/L (22-29); Chloride 108 mmol/L (98-107); Estimated GFR-MDRD 87; Magnesium 1.4 mg/dL (1.6-2.6)
[2017-04-13] MEDS: buPROPion HCl 75 MG TAB PO SCH ×2 (08:44→21:41)
[2017-04-13] MEDS: Magnesium Oxide 400 MG TAB PO SCH ×2 (08:45→21:41)
[2017-04-13] MEDS: Citalopram 20 MG TAB PO SCH (08:45)
[2017-04-13] MEDS: Ferrous Sulfate 325 MG TAB PO SCH ×2 (08:45→17:49)
[2017-04-13] MEDS: Famotidine 20 MG TAB PO SCH ×2 (08:45→21:41)
[2017-04-13] MEDS: Pantoprazole 40 MG VIAL IVP SCH (08:45)
[2017-04-13] MEDS: Folic Acid 1 MG TAB PO SCH ×2 (08:45→21:41)
[2017-04-13] MEDS: Cyanocobalamin (Vitamin B-12) 1,000 MCG TAB PO SCH (08:45)
[2017-04-13] MEDS ORDERED: Magnesium Sulfate 4 GM in Sodium Chloride 0.9% 250 ML 250 ML IVPB SCH (09:00)
[2017-04-13] MEDS ORDERED: Potassium Chloride 20 MEQ TAB PO SCH (09:00)
[2017-04-13] MEDS ORDERED: Pancrelipase DR 12000 1 CAP FS PRN (11:07)
[2017-04-13] MEDS ORDERED: Sodium Bicarbonate Tab 325 MG TAB PER TUBE PRN (11:07)
--- NOTE | 2017-04-13 11:12 | PDOC.PN ---
- Subjective Encounter Start Date: 04/13/17 Encounter Start Time: 07:50 Patient seen and examined. No new complaints. No overnight events - Objective Resuscitation Status: Resuscitation Status FULL:Full Resuscitation MAR Reviewed: Yes Vital Signs & Weight: Vital Signs (12 hours) Temp Pulse Resp BP Pulse Ox 04/13/17 07:25 97.4 F L 72 12 146/75 H 97 04/13/17 04:37 97.5 F L 61 18 159/77 H 96 Weight Admit Weight 117 lb 8.102 oz Weight 134 lb Most Recent Monitor Data Heart Rate from ECG 86 NIBP 128/82 NIBP BP-Mean 91 Respiration from ECG 11 SpO2 96 I&O: 04/12/17 04/13/17 04/14/17 06:59 06:59 06:59 Intake Total 2630 Balance 2630 Result Diagrams: 04/13/17 07:38 04/13/17 07:38 Phys Exam - Physical Examination Constitutional: NAD HEENT: PERRLA, moist MMs, sclera anicteric Neck: no JVD, supple Respiratory: no wheezing, no rales, no rhonchi Cardiovascular: RRR, no significant murmur, no rub Gastrointestinal: soft, non-tender, no distention, positive bowel sounds peg+ Musculoskeletal: no edema, pulses present Neurological: non-focal, normal sensation Lymphatic: no nodes Psychiatric: normal affect Skin: no rash, normal turgor Dx/Plan (1) Abnormal blood electrolyte level Code(s): E87.8 - OTH DISORDERS OF ELECTROLYTE AND FLUID BALANCE, NEC Status: Acute (2) Radiation cystitis Code(s): N30.40 - IRRADIATION CYSTITIS WITHOUT HEMATURIA Status: Acute (3) Anemia due to acute blood loss Code(s): D62 - ACUTE POSTHEMORRHAGIC ANEMIA Status: Acute (4) Bilateral hydronephrosis Code(s): N13.30 - UNSPECIFIED HYDRONEPHROSIS Status: Acute (5) Esophagitis Code(s): K20.9 - ESOPHAGITIS, UNSPECIFIED Status: Acute (6) Fracture of right superior pubic ramus Code(s): S32.511A - FRACTURE OF SUPERIOR RIM OF RIGHT PUBIS, INIT FOR CLOS FX Status: Acute Qualifiers: Encounter type: subsequent encounter Fracture type: closed (7) Hematuria Code(s): R31.9 - HEMATURIA, UNSPECIFIED Status: Resolved Comment: (8) Anemia, normocytic normochromic Code(s): D64.9 - ANEMIA, UNSPECIFIED Status: Chronic (9) Anxiety and depression Code(s): F41.9 - ANXIETY DISORDER, UNSPECIFIED; F32.9 - MAJOR DEPRESSIVE DISORDER, SINGLE EPISODE, UNSPECIFIED Status: Chronic (10) COPD (chronic obstructive pulmonary disease) Status: Chronic Qualifiers: COPD type: chronic bronchitis (11) Cervical cancer Code(s): C53.9 - MALIGNANT NEOPLASM OF CERVIX UTERI, UNSPECIFIED Status: Chronic Comment: h/o hysterectomy with radiation and chemotherapy (12) Cholelithiases Code(s): K80.20 - CALCULUS OF GALLBLADDER W/O CHOLECYSTITIS W/O OBSTRUCTION Status: Chronic Qualifiers: (13) Functional quadriplegia Code(s): R53.2 - FUNCTIONAL QUADRIPLEGIA Status: Chronic (14) GERD (gastroesophageal reflux disease) Code(s): K21.9 - GASTRO-ESOPHAGEAL REFLUX DISEASE WITHOUT ESOPHAGITIS Status: Chronic Qualifiers: Esophagitis presence: esophagitis presence not specified Qualified Code(s) : K21.9 - Gastro-esophageal reflux disease without esophagitis (15) Hiatal hernia Code(s): K44.9 - DIAPHRAGMATIC HERNIA WITHOUT OBSTRUCTION OR GANGRENE Status: Chronic (16) Hypertension Code(s): I10 - ESSENTIAL (PRIMARY) HYPERTENSION Status: Chronic Qualifiers: Hypertension type: essential hypertension Qualified Code(s): I10 - Essential (primary) hypertension (17) Hypothyroidism Code(s): E03.9 - HYPOTHYROIDISM, UNSPECIFIED Status: Chronic Qualifiers: Hypothyroidism type: unspecified Qualified Code(s): E03.9 - Hypothyroidism , unspecified (18) Physical deconditioning Code(s): R53.81 - OTHER MALAISE Status: Chronic (19) Protein-calorie malnutrition, moderate Code(s): E44.0 - MODERATE PROTEIN-CALORIE MALNUTRITION Status: Chronic - Plan cont current plan of care, continue antibiotics * start tube feeding during night time * replace potassium and magnesium today * repeat labs tomorrow * continue zosyn * medication reviewed as below * symptomatic treatment. Review of Systems - Review of Systems ENT: negative: Ear Pain, Ear Discharge, Nose Pain, Nose Discharge, Nose Congestion, Mouth Pain, Mouth Swelling, Throat Pain, Throat Swelling, Other Respiratory: negative: Cough, Dry, Shortness of Breath, Hemoptysis, SOB with Excertion, Pleuritic Pain, Sputum, Wheezing Cardiovascular: negative: Chest Pain, Palpitations, Orthopnea, Paroxysmal Noc. Dyspnea, Edema, Light Headedness, Other Gastrointestinal: negative: Nausea, Vomiting, Abdominal Pain, Diarrhea, Constipation, Melena, Hematochezia, Other Genitourinary: negative: Dysuria, Frequency, Incontinence, Hematuria, Retention , Other Musculoskeletal: negative: Neck Pain, Shoulder Pain, Arm Pain, Back Pain, Hand Pain, Leg Pain, Foot Pain, Other - Medications/Allergies Allergies/Adverse Reactions: Allergies Allergy/AdvReac Type Severity Reaction Status Date / Time latex Allergy Verified 12/17/16 20:46 Medications: Current Medications Acetaminophen (Tylenol) 650 mg PO Q4H PRN PRN Reason: Headache/Fever or Pain Hydrocodone Bitart/Acetaminophen ([address] 5/325) 1 tab PO Q4H PRN PRN Reason: Moderate Pain (4-6) Al Hydroxide/Mg Hydroxide (Maalox) 15 ml PO Q4H PRN PRN Reason: Heartburn or Indigestion Albuterol/Ipratropium (Duoneb) 3 ml NEB [id number] PRN PRN Reason: SOB &/or Wheezing Alprazolam (Xanax) 0.5 mg PO TID PRN PRN Reason: Anxiety Last Admin: 04/12/17 17:02 Dose: 0.5 mg Lipase/Protease/Amylase ([place] [id number]) 1 cap FS .PER PROTOCOL PRN PRN Reason: TUBE OCCLUSION PROTOCOL Artificial Tears (Tears Renewed 15ml Bottle) 0 drop EA EYE PRN PRN PRN Reason: Dry Eyes Benzonatate (Tessalon) 100 mg PO Q4H PRN PRN Reason: Cough Bupropion HCl (Wellbutrin) 75 mg PO BID [facility] Last Admin: 04/13/17 08:44 Dose: 75 mg Calcium Carbonate (Tums) 1,000 mg PO Q4H PRN PRN Reason: Heartburn or Indigestion Cholecalciferol (Vitamin D3) 1,000 units PO DAILY [facility] Last Admin: 04/13/17 08:45 Dose: 1,000 units Citalopram Hydrobromide (Celexa) 20 mg PO DAILY [facility] Last Admin: 04/13/17 08:45 Dose: 20 mg Cyanocobalamin (Vitamin B-12) 1,000 mcg PO DAILY [facility] Last Admin: 04/13/17 08:45 Dose: 1,000 mcg Famotidine (Pepcid) 20 mg PO BID [facility] Last Admin: 04/13/17 08:45 Dose: 20 mg Ferrous Sulfate (Feosol) 325 mg PO BID[facility] Last Admin: 04/13/17 08:45 Dose: 325 mg Folic Acid (Folvite) 1 mg PO BID [facility] Last Admin: 04/13/17 08:45 Dose: 1 mg Gabapentin (Neurontin) 300 mg PO QPM [facility] Last Admin: 04/12/17 20:28 Dose: 300 mg Guaifenesin (Robitussin Sf) 200 mg PO Q4H PRN PRN Reason: Cough Hydralazine HCl (Apresoline) 10 mg SLOW IVP Q4H PRN PRN Reason: HYPERTENSION Last Admin: 04/12/17 17:01 Dose: 10 mg Piperacillin Sod/Tazobactam Sod 3.375 gm/ Miscellaneous Medication 1 each/ Sodium Chloride 100 mls @ 200 mls/hr IVPB Q6HR [facility] Last Admin: 04/13/17 10:49 Dose: 100 mls Sodium Chloride (Normal Saline 0.9%) 1,000 mls @ 50 mls/hr IV .Q20H [facility] Last Admin: 04/13/17 05:25 Dose: Not Given Magnesium Sulfate 4 gm/ Sodium (Chloride) 258 mls @ 86 mls/hr IVPB NOW [facility] Stop: 04/13/17 13:00 Levothyroxine Sodium (Synthroid) 200 mcg PO 0600 [facility] Last Admin: 04/13/17 05:24 Dose: 200 mcg Liothyronine Sodium (Cytomel) 5 mcg PO 0600 [facility] Last Admin: 04/13/17 05:25 Dose: 5 mcg Loperamide HCl (Imodium) 2 mg PO PRN PRN PRN Reason: Diarrhea/Loose Stools Loratadine (Claritin) 10 mg PO DAILYPRN PRN PRN Reason: Sinus Symptoms Magnesium Hydroxide (Milk Of Magnesium) 30 ml PO DAILYPRN PRN PRN Reason: Constipation Magnesium Oxide (Magnesium Oxide) 400 mg PO BID [facility] Last Admin: 04/13/17 08:45 Dose: 400 mg Mineral Oil/White Petrolatum (Eucerin Cream) 0 gm TOP BIDPRN PRN PRN Reason: Dry Skin Mirtazapine (Remeron) 15 mg PO HS [facility] Last Admin: 04/12/17 20:27 Dose: 15 mg Morphine Sulfate (Duramorph) 2 mg IV Q3H PRN PRN Reason: Moderate to Severe Pain (6-10) Last Admin: 04/12/17 20:33 Dose: 2 mg Ondansetron HCl (Zofran) 4 mg IVP Q6H PRN PRN Reason: Nausea/Vomiting Ondansetron HCl (Zofran Odt) 4 mg PO Q6H PRN PRN Reason: Nausea/Vomiting Pantoprazole Sodium (Protonix) 40 mg IVP DAILY [facility] Last Admin: 04/13/17 08:45 Dose: 40 mg Pantoprazole Sodium (Protonix) 40 mg PO Q24HR [facility] Last Admin: 04/12/17 20:33 Dose: 40 mg Phenol (Chloraseptic [place] 180 Ml Bot) 0 ml PO PRN PRN PRN Reason: Sore Throat Polyethylene Glycol (Miralax) 17 gm PO DAILY PRN PRN Reason: Constipation Potassium Chloride (K-Dur) 40 meq PO BID[facility] Propranolol HCl (Inderal) 10 mg PO TID [facility] Last Admin: 04/13/17 08:45 Dose: 10 mg Senna (Senokot) 2 tab PO HSPRN PRN PRN Reason: Constipation Sodium Bicarbonate (Bicarbonate, Sodium) 650 mg PER TUBE .PER PROTOCOL PRN PRN Reason: ENTERAL TUBE OCCLUSION Sodium Chloride (Flush - Normal Saline) 10 ml IVF Q12HR [facility] Last Admin: 04/13/17 08:46 Dose: Not Given Sodium Chloride (Flush - Normal Saline) 10 ml IVF PRN PRN PRN Reason: Saline Flush Sodium Chloride (Flush - Normal Saline) 10 ml IV DAILY [facility] Last Admin: 04/13/17 08:46 Dose: 10 ml Sodium Chloride ([place] Nasal [place] 0.65%) 0 ml EA NARE QIDPRN PRN PRN Reason: Nasal Congestion Temazepam (Restoril) 15 mg PO HSPRN PRN PRN Reason: Insomnia Tramadol HCl (Ultram) 50 mg PO QID PRN PRN Reason: Pain
[2017-04-13] MEDS: Potassium Chloride 20 MEQ TAB PO SCH (17:49)
[2017-04-13] MEDS: Morphine PF 1 MG/ML SYR IV PRN ×2 (18:13→22:17)
[2017-04-13] MEDS: Mirtazapine 15 MG TAB PO SCH (21:41)
[2017-04-13] MEDS: Gabapentin 300 MG CAP PO SCH (21:41)
[2017-04-13] MEDS: ALPRAZolam 0.5 MG TAB PO PRN (21:50)
[2017-04-14] MEDS: Piperacillin/Tazobactam 3.375 GM, Admixture Fee 1 EACH in Sodium Chloride 0.9% 100 ML IVPB SCH ×5 (00:48→23:32)
[2017-04-14 05:13] LABS: Anion Gap 13 mmol/L (10-20); BUN (Urea Nitrogen) 10 mg/dL (9.8-20.1); Calc. Creatinine Clearance 81 mL/min (70-130); Calcium 8.9 mg/dL (7.8-10.44); Carbon Dioxide 22 mmol/L (22-29); Chloride 111 mmol/L (98-107); Estimated GFR-MDRD 79; Magnesium 2.7 mg/dL (1.6-2.6)
[2017-04-14] MEDS: Liothyronine Sodium 5 MCG TAB PO SCH (06:32)
[2017-04-14] MEDS: Levothyroxine Sodium 100 MCG TAB PO SCH (06:33)
[2017-04-14] MEDS: Ferrous Sulfate 325 MG TAB PO SCH ×2 (08:42→16:37)
[2017-04-14] MEDS: buPROPion HCl 75 MG TAB PO SCH ×2 (08:42→21:13)
[2017-04-14] MEDS: Magnesium Oxide 400 MG TAB PO SCH ×2 (08:43→21:14)
[2017-04-14] MEDS: Pantoprazole 40 MG VIAL IVP SCH (08:43)
[2017-04-14] MEDS: Citalopram 20 MG TAB PO SCH (08:43)
[2017-04-14] MEDS: Potassium Chloride 20 MEQ TAB PO SCH ×4 (08:43→21:14)
[2017-04-14] MEDS: Folic Acid 1 MG TAB PO SCH ×2 (08:43→21:14)
[2017-04-14] MEDS: Cyanocobalamin (Vitamin B-12) 1,000 MCG TAB PO SCH (08:44)
[2017-04-14] MEDS: Famotidine 20 MG TAB PO SCH ×2 (08:44→21:13)
[2017-04-14] MEDS: Sodium Chloride 0.9% 1,000 ML IV SCH (09:44)
[2017-04-14] MEDS: Morphine 4 MG/ML VIAL SLOW IVP PRN ×4 (10:12→23:32)
--- NOTE | 2017-04-14 10:50 | PDOC.PN ---
- Subjective Encounter Start Date: 04/14/17 Encounter Start Time: 08:10 Patient seen and examined. No new complaints. No overnight events - Objective Resuscitation Status: Resuscitation Status FULL:Full Resuscitation MAR Reviewed: Yes Vital Signs & Weight: Vital Signs (12 hours) Temp Pulse Resp BP Pulse Ox 04/14/17 08:40 98.2 F 72 16 172/71 H 97 04/14/17 05:00 99.1 F 73 16 179/79 H 94 L 04/14/17 00:00 98.6 F 69 16 175/55 H 96 Weight Admit Weight 117 lb 8.102 oz Weight 134 lb Most Recent Monitor Data Heart Rate from ECG 86 NIBP 128/82 NIBP BP-Mean 91 Respiration from ECG 11 SpO2 96 I&O: 04/13/17 04/14/17 04/15/17 06:59 06:59 06:59 Intake Total 2630 3380 Balance 2630 3380 Result Diagrams: 04/13/17 07:38 04/14/17 06:25 Phys Exam - Physical Examination Constitutional: NAD HEENT: PERRLA, moist MMs, sclera anicteric Neck: no JVD, supple Respiratory: no wheezing, no rales, no rhonchi Cardiovascular: RRR, no significant murmur, no rub Gastrointestinal: soft, non-tender, no distention, positive bowel sounds peg+ Musculoskeletal: no edema, pulses present Neurological: non-focal, normal sensation Lymphatic: no nodes Psychiatric: normal affect Skin: no rash, normal turgor Dx/Plan (1) Anemia due to acute blood loss Code(s): D62 - ACUTE POSTHEMORRHAGIC ANEMIA Status: Acute (2) Bilateral hydronephrosis Code(s): N13.30 - UNSPECIFIED HYDRONEPHROSIS Status: Acute (3) Esophagitis Code(s): K20.9 - ESOPHAGITIS, UNSPECIFIED Status: Acute (4) Fracture of right superior pubic ramus Code(s): S32.511A - FRACTURE OF SUPERIOR RIM OF RIGHT PUBIS, INIT FOR CLOS FX Status: Acute Qualifiers: Encounter type: subsequent encounter Fracture type: closed (5) Hematuria Code(s): R31.9 - HEMATURIA, UNSPECIFIED Status: Resolved Comment: (6) Anemia, normocytic normochromic Code(s): D64.9 - ANEMIA, UNSPECIFIED Status: Chronic (7) Anxiety and depression Code(s): F41.9 - ANXIETY DISORDER, UNSPECIFIED; F32.9 - MAJOR DEPRESSIVE DISORDER, SINGLE EPISODE, UNSPECIFIED Status: Chronic (8) COPD (chronic obstructive pulmonary disease) Status: Chronic Qualifiers: COPD type: chronic bronchitis (9) Cervical cancer Code(s): C53.9 - MALIGNANT NEOPLASM OF CERVIX UTERI, UNSPECIFIED Status: Chronic Comment: h/o hysterectomy with radiation and chemotherapy (10) Cholelithiases Code(s): K80.20 - CALCULUS OF GALLBLADDER W/O CHOLECYSTITIS W/O OBSTRUCTION Status: Chronic Qualifiers: (11) Functional quadriplegia Code(s): R53.2 - FUNCTIONAL QUADRIPLEGIA Status: Chronic (12) GERD (gastroesophageal reflux disease) Code(s): K21.9 - GASTRO-ESOPHAGEAL REFLUX DISEASE WITHOUT ESOPHAGITIS Status: Chronic Qualifiers: Esophagitis presence: esophagitis presence not specified Qualified Code(s) : K21.9 - Gastro-esophageal reflux disease without esophagitis (13) Hiatal hernia Code(s): K44.9 - DIAPHRAGMATIC HERNIA WITHOUT OBSTRUCTION OR GANGRENE Status: Chronic (14) Hypertension Code(s): I10 - ESSENTIAL (PRIMARY) HYPERTENSION Status: Chronic Qualifiers: Hypertension type: essential hypertension Qualified Code(s): I10 - Essential (primary) hypertension (15) Hypothyroidism Code(s): E03.9 - HYPOTHYROIDISM, UNSPECIFIED Status: Chronic Qualifiers: Hypothyroidism type: unspecified Qualified Code(s): E03.9 - Hypothyroidism , unspecified (16) Physical deconditioning Code(s): R53.81 - OTHER MALAISE Status: Chronic (17) Protein-calorie malnutrition, moderate Code(s): E44.0 - MODERATE PROTEIN-CALORIE MALNUTRITION Status: Chronic (18) Abnormal blood electrolyte level Code(s): E87.8 - OTH DISORDERS OF ELECTROLYTE AND FLUID BALANCE, NEC Status: Acute (19) Radiation cystitis Code(s): N30.40 - IRRADIATION CYSTITIS WITHOUT HEMATURIA Status: Acute - Plan cont current plan of care, continue antibiotics * medication reviewed as below * symptomatic treatment * continue zosyn * replace potassium * repeat labs tomorrow. Review of Systems - Review of Systems Constitutional: negative: Fever, Chills, Sweats, Weakness, Malaise, Other ENT: negative: Ear Pain, Ear Discharge, Nose Pain, Nose Discharge, Nose Congestion, Mouth Pain, Mouth Swelling, Throat Pain, Throat Swelling, Other Respiratory: negative: Cough, Dry, Shortness of Breath, Hemoptysis, SOB with Excertion, Pleuritic Pain, Sputum, Wheezing Cardiovascular: negative: Chest Pain, Palpitations, Orthopnea, Paroxysmal Noc. Dyspnea, Edema, Light Headedness, Other Gastrointestinal: negative: Nausea, Vomiting, Abdominal Pain, Diarrhea, Constipation, Melena, Hematochezia, Other Genitourinary: negative: Dysuria, Frequency, Incontinence, Hematuria, Retention , Other Musculoskeletal: negative: Neck Pain, Shoulder Pain, Arm Pain, Back Pain, Hand Pain, Leg Pain, Foot Pain, Other - Medications/Allergies Allergies/Adverse Reactions: Allergies Allergy/AdvReac Type Severity Reaction Status Date / Time latex Allergy Verified 12/17/16 20:46 Medications: Current Medications Acetaminophen (Tylenol) 650 mg PO Q4H PRN PRN Reason: Headache/Fever or Pain Hydrocodone Bitart/Acetaminophen ([place] 5/325) 1 tab PO Q4H PRN PRN Reason: Moderate Pain (4-6) Al Hydroxide/Mg Hydroxide (Maalox) 15 ml PO Q4H PRN PRN Reason: Heartburn or Indigestion Albuterol/Ipratropium (Duoneb) 3 ml NEB [id number] PRN PRN Reason: SOB &/or Wheezing Alprazolam (Xanax) 0.5 mg PO TID PRN PRN Reason: Anxiety Last Admin: 04/13/17 21:50 Dose: 0.5 mg Lipase/Protease/[place]ylase ([place] [id number]) 1 cap FS .PER PROTOCOL PRN PRN Reason: TUBE OCCLUSION PROTOCOL Artificial Tears (Tears Renewed 15ml Bottle) 0 drop EA EYE PRN PRN PRN Reason: Dry Eyes Benzonatate (Tessalon) 100 mg PO Q4H PRN PRN Reason: Cough Bupropion HCl (Wellbutrin) 75 mg PO BID [facility] Last Admin: 04/14/17 08:42 Dose: 75 mg Calcium Carbonate (Tums) 1,000 mg PO Q4H PRN PRN Reason: Heartburn or Indigestion Cholecalciferol (Vitamin D3) 1,000 units PO DAILY [facility] Last Admin: 04/14/17 08:43 Dose: 1,000 units Citalopram Hydrobromide (Celexa) 20 mg PO DAILY [facility] Last Admin: 04/14/17 08:43 Dose: 20 mg Cyanocobalamin (Vitamin B-12) 1,000 mcg PO DAILY [facility] Last Admin: 04/14/17 08:44 Dose: 1,000 mcg Famotidine (Pepcid) 20 mg PO BID [facility] Last Admin: 04/14/17 08:44 Dose: 20 mg Ferrous Sulfate (Feosol) 325 mg PO BID[facility] Last Admin: 04/14/17 08:42 Dose: 325 mg Folic Acid (Folvite) 1 mg PO BID [facility] Last Admin: 04/14/17 08:43 Dose: 1 mg Gabapentin (Neurontin) 300 mg PO QPM [facility] Last Admin: 04/13/17 21:41 Dose: 300 mg Guaifenesin (Robitussin Sf) 200 mg PO Q4H PRN PRN Reason: Cough Hydralazine HCl (Apresoline) 10 mg SLOW IVP Q4H PRN PRN Reason: HYPERTENSION Last Admin: 04/12/17 17:01 Dose: 10 mg Piperacillin Sod/Tazobactam Sod 3.375 gm/ Miscellaneous Medication 1 each/ Sodium Chloride 100 mls @ 200 mls/hr IVPB Q6HR [facility] Last Admin: 04/14/17 06:33 Dose: 100 mls Sodium Chloride (Normal Saline 0.9%) 1,000 mls @ 50 mls/hr IV .Q20H [facility] Last Admin: 04/14/17 09:44 Dose: 1,000 mls Levothyroxine Sodium (Synthroid) 200 mcg PO 0600 [facility] Last Admin: 04/14/17 06:33 Dose: 200 mcg Liothyronine Sodium (Cytomel) 5 mcg PO 0600 [facility] Last Admin: 04/14/17 06:32 Dose: 5 mcg Loperamide HCl (Imodium) 2 mg PO PRN PRN PRN Reason: Diarrhea/Loose Stools Loratadine (Claritin) 10 mg PO DAILYPRN PRN PRN Reason: Sinus Symptoms Magnesium Hydroxide (Milk Of Magnesium) 30 ml PO DAILYPRN PRN PRN Reason: Constipation Magnesium Oxide (Magnesium Oxide) 400 mg PO BID [facility] Last Admin: 04/14/17 08:43 Dose: 400 mg Mineral Oil/White Petrolatum (Eucerin Cream) 0 gm TOP BIDPRN PRN PRN Reason: Dry Skin Mirtazapine (Remeron) 15 mg PO HS [facility] Last Admin: 04/13/17 21:41 Dose: 15 mg Morphine Sulfate (Morphine Sulfate) 2 mg SLOW IVP Q3H PRN PRN Reason: Moderate to Severe Pain (6-10) Last Admin: 04/14/17 10:12 Dose: 2 mg Ondansetron HCl (Zofran) 4 mg IVP Q6H PRN PRN Reason: Nausea/Vomiting Ondansetron HCl (Zofran Odt) 4 mg PO Q6H PRN PRN Reason: Nausea/Vomiting Pantoprazole Sodium (Protonix) 40 mg IVP DAILY [facility] Last Admin: 04/14/17 08:43 Dose: 40 mg Pantoprazole Sodium (Protonix) 40 mg PO Q24HR [facility] Last Admin: 04/13/17 21:41 Dose: 40 mg Phenol (Chloraseptic [place] 180 Ml Bot) 0 ml PO PRN PRN PRN Reason: Sore Throat Polyethylene Glycol (Miralax) 17 gm PO DAILY PRN PRN Reason: Constipation Potassium Chloride (K-Dur) 40 meq PO TID [facility] Last Admin: 04/14/17 08:43 Dose: 40 meq Propranolol HCl (Inderal) 10 mg PO TID [facility] Last Admin: 04/14/17 08:44 Dose: 10 mg Senna (Senokot) 2 tab PO HSPRN PRN PRN Reason: Constipation Sodium Bicarbonate (Bicarbonate, Sodium) 650 mg PER TUBE .PER PROTOCOL PRN PRN Reason: ENTERAL TUBE OCCLUSION Sodium Chloride (Flush - Normal Saline) 10 ml IVF Q12HR [facility] Last Admin: 04/14/17 08:43 Dose: 10 ml Sodium Chloride (Flush - Normal Saline) 10 ml IVF PRN PRN PRN Reason: Saline Flush Sodium Chloride (Flush - Normal Saline) 10 ml IV DAILY [facility] Last Admin: 04/14/17 08:44 Dose: Not Given Sodium Chloride ([place] Nasal [place] 0.65%) 0 ml EA NARE QIDPRN PRN PRN Reason: Nasal Congestion Temazepam (Restoril) 15 mg PO HSPRN PRN PRN Reason: Insomnia Tramadol HCl (Ultram) 50 mg PO QID PRN PRN Reason: Pain
[2017-04-14] MEDS: Mirtazapine 15 MG TAB PO SCH (21:14)
[2017-04-14] MEDS: Gabapentin 300 MG CAP PO SCH (21:14)
[2017-04-14] MEDS: ALPRAZolam 0.5 MG TAB PO PRN (21:18)
[2017-04-15] MEDS: Piperacillin/Tazobactam 3.375 GM, Admixture Fee 1 EACH in Sodium Chloride 0.9% 100 ML IVPB SCH ×4 (05:18→23:47)
[2017-04-15] MEDS: Levothyroxine Sodium 100 MCG TAB PO SCH (05:18)
[2017-04-15] MEDS: Liothyronine Sodium 5 MCG TAB PO SCH (05:18)
[2017-04-15 05:34] LABS: #Eosinphils 0.4 thou/uL (0.0-0.7); #Monocytes 0.5 thou/uL (0.11-0.59); #Neutrophils 3.5 thou/uL (1.40-6.50); %Basophils 0.6 % (0.0-1.0); %Lymphocytes 18.2 % (21.0-51.0); Hematocrit 34.4 % (36.0-47.0); Mean Platelet Volume 7.1 fL (7.4-10.4); White Blood Cell (WBC) Count 5.5 thou/uL (4.8-10.8)
[2017-04-15] MEDS: Morphine 4 MG/ML VIAL SLOW IVP PRN ×5 (05:44→19:19)
[2017-04-15 06:05] LABS: Anion Gap 12 mmol/L (10-20); BUN (Urea Nitrogen) 15 mg/dL (9.8-20.1); Calc. Creatinine Clearance 85 mL/min (70-130); Carbon Dioxide 23 mmol/L (22-29); Chloride 113 mmol/L (98-107); Estimated GFR-MDRD 83; Magnesium 1.7 mg/dL (1.6-2.6)
[2017-04-15] MEDS: Citalopram 20 MG TAB PO SCH (09:28)
[2017-04-15] MEDS: Folic Acid 1 MG TAB PO SCH ×2 (09:28→20:03)
[2017-04-15] MEDS: Magnesium Oxide 400 MG TAB PO SCH ×2 (09:28→20:05)
[2017-04-15] MEDS: Potassium Chloride 20 MEQ TAB PO SCH ×3 (09:28→20:00)
[2017-04-15] MEDS: buPROPion HCl 75 MG TAB PO SCH ×2 (09:28→20:04)
[2017-04-15] MEDS: Famotidine 20 MG TAB PO SCH ×2 (09:29→19:58)
[2017-04-15] MEDS: Ferrous Sulfate 325 MG TAB PO SCH ×2 (09:29→16:08)
[2017-04-15] MEDS: Cyanocobalamin (Vitamin B-12) 1,000 MCG TAB PO SCH (09:29)
[2017-04-15] MEDS: Pantoprazole 40 MG VIAL IVP SCH (09:29)
--- NOTE | 2017-04-15 13:34 | PDOC.PN ---
- Subjective Encounter Start Date: 04/15/17 Encounter Start Time: 10:50 Patient seen and examined. No new complaints. No overnight events - Objective Resuscitation Status: Resuscitation Status FULL:Full Resuscitation MAR Reviewed: Yes Vital Signs & Weight: Vital Signs (12 hours) Temp Pulse Resp BP Pulse Ox 04/15/17 07:15 99.0 F 90 16 177/96 H 97 04/15/17 04:05 98.2 F 87 18 166/75 H 97 Weight Admit Weight 117 lb 8.102 oz Weight 139 lb 14.4 oz Most Recent Monitor Data Heart Rate from ECG 86 NIBP 128/82 NIBP BP-Mean 91 Respiration from ECG 11 SpO2 96 I&O: 04/14/17 04/15/17 04/16/17 06:59 06:59 06:59 Intake Total 3380 3295 Balance 3380 3295 Result Diagrams: 04/15/17 04:36 04/15/17 04:36 Phys Exam - Physical Examination Constitutional: NAD HEENT: PERRLA, moist MMs, sclera anicteric Neck: no JVD, supple Respiratory: no wheezing, no rales, no rhonchi Cardiovascular: RRR, no significant murmur, no rub Gastrointestinal: soft, non-tender, no distention, positive bowel sounds PEG+ Musculoskeletal: no edema, pulses present Neurological: non-focal, normal sensation Lymphatic: no nodes Psychiatric: normal affect, A&O x 3 Skin: no rash, normal turgor Dx/Plan (1) Anemia due to acute blood loss Code(s): D62 - ACUTE POSTHEMORRHAGIC ANEMIA Status: Acute (2) Bilateral hydronephrosis Code(s): N13.30 - UNSPECIFIED HYDRONEPHROSIS Status: Acute (3) Esophagitis Code(s): K20.9 - ESOPHAGITIS, UNSPECIFIED Status: Acute (4) Fracture of right superior pubic ramus Code(s): S32.511A - FRACTURE OF SUPERIOR RIM OF RIGHT PUBIS, INIT FOR CLOS FX Status: Acute Qualifiers: Encounter type: subsequent encounter Fracture type: closed (5) Hematuria Code(s): R31.9 - HEMATURIA, UNSPECIFIED Status: Resolved Comment: (6) Anemia, normocytic normochromic Code(s): D64.9 - ANEMIA, UNSPECIFIED Status: Chronic (7) Anxiety and depression Code(s): F41.9 - ANXIETY DISORDER, UNSPECIFIED; F32.9 - MAJOR DEPRESSIVE DISORDER, SINGLE EPISODE, UNSPECIFIED Status: Chronic (8) COPD (chronic obstructive pulmonary disease) Status: Chronic Qualifiers: COPD type: chronic bronchitis (9) Cervical cancer Code(s): C53.9 - MALIGNANT NEOPLASM OF CERVIX UTERI, UNSPECIFIED Status: Chronic Comment: h/o hysterectomy with radiation and chemotherapy (10) Cholelithiases Code(s): K80.20 - CALCULUS OF GALLBLADDER W/O CHOLECYSTITIS W/O OBSTRUCTION Status: Chronic Qualifiers: (11) Functional quadriplegia Code(s): R53.2 - FUNCTIONAL QUADRIPLEGIA Status: Chronic (12) GERD (gastroesophageal reflux disease) Code(s): K21.9 - GASTRO-ESOPHAGEAL REFLUX DISEASE WITHOUT ESOPHAGITIS Status: Chronic Qualifiers: Esophagitis presence: esophagitis presence not specified Qualified Code(s) : K21.9 - Gastro-esophageal reflux disease without esophagitis (13) Hiatal hernia Code(s): K44.9 - DIAPHRAGMATIC HERNIA WITHOUT OBSTRUCTION OR GANGRENE Status: Chronic (14) Hypertension Code(s): I10 - ESSENTIAL (PRIMARY) HYPERTENSION Status: Chronic Qualifiers: Hypertension type: essential hypertension Qualified Code(s): I10 - Essential (primary) hypertension (15) Hypothyroidism Code(s): E03.9 - HYPOTHYROIDISM, UNSPECIFIED Status: Chronic Qualifiers: Hypothyroidism type: unspecified Qualified Code(s): E03.9 - Hypothyroidism , unspecified (16) Physical deconditioning Code(s): R53.81 - OTHER MALAISE Status: Chronic (17) Protein-calorie malnutrition, moderate Code(s): E44.0 - MODERATE PROTEIN-CALORIE MALNUTRITION Status: Chronic (18) Abnormal blood electrolyte level Code(s): E87.8 - OTH DISORDERS OF ELECTROLYTE AND FLUID BALANCE, NEC Status: Acute (19) Radiation cystitis Code(s): N30.40 - IRRADIATION CYSTITIS WITHOUT HEMATURIA Status: Acute - Plan cont current plan of care, continue antibiotics, PT/OT, social media sr strategy manager * today last dose of antibiotics * medication reviewed as below * symptomatic treatment * will discharge tomorrow to [facility]. Review of Systems - Review of Systems ENT: negative: Ear Pain, Ear Discharge, Nose Pain, Nose Discharge, Nose Congestion, Mouth Pain, Mouth Swelling, Throat Pain, Throat Swelling, Other Respiratory: negative: Cough, Dry, Shortness of Breath, Hemoptysis, SOB with Excertion, Pleuritic Pain, Sputum, Wheezing Cardiovascular: negative: Chest Pain, Palpitations, Orthopnea, Paroxysmal Noc. Dyspnea, Edema, Light Headedness, Other Gastrointestinal: negative: Nausea, Vomiting, Abdominal Pain, Diarrhea, Constipation, Melena, Hematochezia, Other Genitourinary: negative: Dysuria, Frequency, Incontinence, Hematuria, Retention , Other Musculoskeletal: negative: Neck Pain, Shoulder Pain, Arm Pain, Back Pain, Hand Pain, Leg Pain, Foot Pain, Other - Medications/Allergies Allergies/Adverse Reactions: Allergies Allergy/AdvReac Type Severity Reaction Status Date / Time latex Allergy Verified 12/17/16 20:46 Medications: Current Medications Acetaminophen (Tylenol) 650 mg PO Q4H PRN PRN Reason: Headache/Fever or Pain Hydrocodone Bitart/Acetaminophen ([place] 5/325) 1 tab PO Q4H PRN PRN Reason: Moderate Pain (4-6) Al Hydroxide/Mg Hydroxide (Maalox) 15 ml PO Q4H PRN PRN Reason: Heartburn or Indigestion Albuterol/Ipratropium (Duoneb) 3 ml NEB [id number] PRN PRN Reason: SOB &/or Wheezing Alprazolam (Xanax) 0.5 mg PO TID PRN PRN Reason: Anxiety Last Admin: 04/14/17 21:18 Dose: 0.5 mg Lipase/Protease/Amylase ([place] [id number]) 1 cap FS .PER PROTOCOL PRN PRN Reason: TUBE OCCLUSION PROTOCOL Artificial Tears (Tears Renewed 15ml Bottle) 0 drop EA EYE PRN PRN PRN Reason: Dry Eyes Benzonatate (Tessalon) 100 mg PO Q4H PRN PRN Reason: Cough Bupropion HCl (Wellbutrin) 75 mg PO BID [facility] Last Admin: 04/15/17 09:28 Dose: 75 mg Calcium Carbonate (Tums) 1,000 mg PO Q4H PRN PRN Reason: Heartburn or Indigestion Cholecalciferol (Vitamin D3) 1,000 units PO DAILY [facility] Last Admin: 04/15/17 09:29 Dose: 1,000 units Citalopram Hydrobromide (Celexa) 20 mg PO DAILY [facility] Last Admin: 04/15/17 09:28 Dose: 20 mg Cyanocobalamin (Vitamin B-12) 1,000 mcg PO DAILY [facility] Last Admin: 04/15/17 09:29 Dose: 1,000 mcg Famotidine (Pepcid) 20 mg PO BID [facility] Last Admin: 04/15/17 09:29 Dose: 20 mg Ferrous Sulfate (Feosol) 325 mg PO BID[facility] Last Admin: 04/15/17 09:29 Dose: 325 mg Folic Acid (Folvite) 1 mg PO BID [facility] Last Admin: 04/15/17 09:28 Dose: 1 mg Gabapentin (Neurontin) 300 mg PO QPM [facility] Last Admin: 04/14/17 21:14 Dose: 300 mg Guaifenesin (Robitussin Sf) 200 mg PO Q4H PRN PRN Reason: Cough Hydralazine HCl (Apresoline) 10 mg SLOW IVP Q4H PRN PRN Reason: HYPERTENSION Last Admin: 04/12/17 17:01 Dose: 10 mg Piperacillin Sod/Tazobactam Sod 3.375 gm/ Miscellaneous Medication 1 each/ Sodium Chloride 100 mls @ 200 mls/hr IVPB Q6HR [facility] Last Admin: 04/15/17 12:06 Dose: 100 mls Levothyroxine Sodium (Synthroid) 200 mcg PO 0600 [facility] Last Admin: 04/15/17 05:18 Dose: 200 mcg Liothyronine Sodium (Cytomel) 5 mcg PO 0600 [facility] Last Admin: 04/15/17 05:18 Dose: 5 mcg Loperamide HCl (Imodium) 2 mg PO PRN PRN PRN Reason: Diarrhea/Loose Stools Last Admin: 04/14/17 21:18 Dose: 2 mg Loratadine (Claritin) 10 mg PO DAILYPRN PRN PRN Reason: Sinus Symptoms Magnesium Hydroxide (Milk Of Magnesium) 30 ml PO DAILYPRN PRN PRN Reason: Constipation Magnesium Oxide (Magnesium Oxide) 400 mg PO BID [facility] Last Admin: 04/15/17 09:28 Dose: 400 mg Mineral Oil/White Petrolatum (Eucerin Cream) 0 gm TOP BIDPRN PRN PRN Reason: Dry Skin Mirtazapine (Remeron) 15 mg PO HS [facility] Last Admin: 04/14/17 21:14 Dose: 15 mg Morphine Sulfate (Morphine Sulfate) 2 mg SLOW IVP Q3H PRN PRN Reason: Moderate to Severe Pain (6-10) Last Admin: 04/15/17 12:20 Dose: 2 mg Ondansetron HCl (Zofran) 4 mg IVP Q6H PRN PRN Reason: Nausea/Vomiting Ondansetron HCl (Zofran Odt) 4 mg PO Q6H PRN PRN Reason: Nausea/Vomiting Pantoprazole Sodium (Protonix) 40 mg IVP DAILY [facility] Last Admin: 04/15/17 09:29 Dose: 40 mg Pantoprazole Sodium (Protonix) 40 mg PO Q24HR [facility] Last Admin: 04/14/17 21:14 Dose: 40 mg Phenol (Chloraseptic [place] 180 Ml Bot) 0 ml PO PRN PRN PRN Reason: Sore Throat Polyethylene Glycol (Miralax) 17 gm PO DAILY PRN PRN Reason: Constipation Potassium Chloride (K-Dur) 40 meq PO TID [facility] Last Admin: 04/15/17 09:28 Dose: 40 meq Propranolol HCl (Inderal) 10 mg PO TID [facility] Last Admin: 04/15/17 09:30 Dose: 10 mg Senna (Senokot) 2 tab PO HSPRN PRN PRN Reason: Constipation Sodium Bicarbonate (Bicarbonate, Sodium) 650 mg PER TUBE .PER PROTOCOL PRN PRN Reason: ENTERAL TUBE OCCLUSION Sodium Chloride (Flush - Normal Saline) 10 ml IVF Q12HR [facility] Last Admin: 04/15/17 09:30 Dose: Not Given Sodium Chloride (Flush - Normal Saline) 10 ml IVF PRN PRN PRN Reason: Saline Flush Sodium Chloride (Flush - Normal Saline) 10 ml IV DAILY [facility] Last Admin: 04/15/17 09:30 Dose: Not Given Sodium Chloride ([place] Nasal [place] 0.65%) 0 ml EA NARE QIDPRN PRN PRN Reason: Nasal Congestion Temazepam (Restoril) 15 mg PO HSPRN PRN PRN Reason: Insomnia Tramadol HCl (Ultram) 50 mg PO QID PRN PRN Reason: Pain
[2017-04-15] MEDS: traMADol HCl 50 MG TAB PO PRN (18:21)
[2017-04-15] MEDS ORDERED: Diphenoxylate HCl/Atropine Tablet PO PRN (18:48)
[2017-04-15] MEDS: Mirtazapine 15 MG TAB PO SCH (19:59)
[2017-04-15] MEDS: Gabapentin 300 MG CAP PO SCH (20:05)
[2017-04-15] MEDS: ALPRAZolam 0.5 MG TAB PO PRN (20:08)
[2017-04-15] MEDS: hydrALAZINE 20 MG/ML VIAL SLOW IVP PRN (23:47)
[2017-04-16] MEDS: traMADol HCl 50 MG TAB PO PRN ×2 (02:19→09:23)
[2017-04-16] MEDS: Morphine 4 MG/ML VIAL SLOW IVP PRN (03:21)
[2017-04-16] MEDS: Piperacillin/Tazobactam 3.375 GM, Admixture Fee 1 EACH in Sodium Chloride 0.9% 100 ML IVPB SCH (05:39)
[2017-04-16] MEDS: metroNIDAZOLE 500 MG in Premix Bag 1 BAG IVPB SCH ×2 (05:40→12:08)
[2017-04-16] MEDS: Liothyronine Sodium 5 MCG TAB PO SCH (05:40)
[2017-04-16] MEDS: Vancomycin HCl 25 MG/ML Oral PO SCH ×2 (05:40→12:04)
[2017-04-16] MEDS: Levothyroxine Sodium 100 MCG TAB PO SCH (05:40)
[2017-04-16 06:02] LABS: Anion Gap 15 mmol/L (10-20); BUN (Urea Nitrogen) 16 mg/dL (9.8-20.1); Calc. Creatinine Clearance 92 mL/min (70-130); Calcium 9.6 mg/dL (7.8-10.44); Carbon Dioxide 24 mmol/L (22-29); Chloride 109 mmol/L (98-107); Estimated GFR-MDRD 87
[2017-04-16] MEDS: buPROPion HCl 75 MG TAB PO SCH (08:54)
[2017-04-16] MEDS: Magnesium Oxide 400 MG TAB PO SCH (08:54)
[2017-04-16] MEDS: Ferrous Sulfate 325 MG TAB PO SCH (08:54)
[2017-04-16] MEDS: Famotidine 20 MG TAB PO SCH (08:54)
[2017-04-16] MEDS: Folic Acid 1 MG TAB PO SCH (08:54)
[2017-04-16] MEDS: Citalopram 20 MG TAB PO SCH (08:54)
[2017-04-16] MEDS: Cyanocobalamin (Vitamin B-12) 1,000 MCG TAB PO SCH (08:54)
[2017-04-16] MEDS ORDERED: Saccharomyces boulardii 250 MG CAP PO SCH (09:00)
[2017-04-16 11:17] VITALS: BMI 24.5
[2017-04-16 12:14] VITALS: BP 145/74; TEMP 97.6
--- NOTE | 2017-04-16 13:26 | DIS ---
PRIMARY CARE PHYSICIAN: Dr. Jenni Patterson DATE OF ADMISSION: 04/08/2017 DATE OF DISCHARGE: 04/16/2017 DISCHARGE DISPOSITION: To snf. PRIMARY DISCHARGE DIAGNOSES: 1. Abnormal blood electrolytes level, corrected. 2. Anemia due to acute blood loss, required 4 units of blood transfusion. 3. Bilateral hydronephrosis. 4. Radiation cystitis. 5. Hematuria due to radiation cystitis. 6. Clostridium difficile diarrhea. SECONDARY DISCHARGE DIAGNOSES: Moderate protein calorie malnutrition, physical deconditioning, hypo thyroidism, hypertension, hiatal hernia, gastroesophageal reflux disease, functional quadriplegia, C OPD, cholelithiasis, cervical cancer, anxiety and depression, normocytic anemia, fracture of right s uperior pubic ramus. PRIMARY PROCEDURE/OPERATION: Cystoscopy and bladder biopsy. RADIOLOGICAL INVESTIGATION: Abdomen and pelvis CT scan on admission showed extensive hemorrhage wit hin the urinary bladder with abnormal mass along the posterior and lateral wall, focal perforation o f rectum. Chest x-ray showed no acute cardiopulmonary process, retrograde pyelogram. SIGNIFICANT LABS: WBC 5.5, hemoglobin 10.9, platelet 247. INR 1.1, sodium 142, potassium 5.5, BUN 16, creatinine 0.70, calcium 9.6, magnesium 1.7. Urinalysis initially hematuria. Urine culture neg ative. Blood culture negative. C. diff antigen positive, toxin negative. DISCHARGE MEDICATIONS: Oral vancomycin 125 mg p.o. q.i.d. for 15 days, Florastor 250 mg p.o. daily for 15 days, Xanax 0.5 mg p.o. t.i.d., Tylenol 650 mg q.i.d. p.r.n., Proventil HFA 1 puff q.i.d. p.r .n., aspirin 81 mg p.o. daily, vitamin D3 1000 units p.o. daily, Celexa 20 mg p.o. daily, vitamin B 12 1000 mcg p.o. daily, ferrous sulfate 325 mg p.o. b.i.d., folic acid 1 mg p.o. b.i.d., gabapentin 300 mg p.o. daily, Synthroid 200 mcg p.o. daily, Cytomel 5 mcg p.o. daily, Imodium as directed, magn esium oxide 400 mg p.o. b.i.d., Remeron 50 mg per tube daily, Protonix 40 mg p.o. b.i.d., MiraLax 17 grams p.o. daily, potassium chloride 20 mEq p.o. daily, Inderal 10 mg t.i.d., Wellbutrin 75 mg p.o. b.i.d., tramadol 50 mg q.i.d. p.r.n. CONTRAINDICATIONS: None. CODE STATUS: Full code. INPATIENT CONSULTANTS: Dr. Huerta, Urology was following while in hospital. Dr. Jeff was followi ng while in hospital. TEST RESULTS PENDING ON DISCHARGE: None. ALLERGIES: LATEX. DISCHARGE PLAN: Post hospital, the patient will follow up with Dr. Huerta, and primary care physicria noriega HOSPITAL COURSE: A 56-year-old female who was admitted from snf for gross hematuria. She was hypotensive. She required ICU admission. She had CT of the abdomen and pelvis which showed ext ensive hemorrhage in the bladder with bladder mass. The patient was having hypovolemic shock. She required aggressive resuscitation. She was given a total of 4 units of blood transfusion. Upon sta bilization, the patient was transferred to medical floor. The patient required cystoscopy and biops y of the bladder. Biopsy report came back as radiation cystitis without any tumor. Regarding gross hematuria. The patient had some bladder irrigation and eventually hematuria stopped and the Muller catheter was discontinued. Urology was following while in hospital. We are suspecti ng that hematuria is related with radiation cystitis. Antibiotic amato the patient was getting Zosyn therapy while in hospital. She had previously aspirat ion pneumonia that was treated entirely while in hospital. Because of antibiotic the patient develo ped Clostridium difficile diarrhea and that is why we started oral vancomycin. While in hospital, she had abnormal electrolytes that was corrected with replacement. At this point, the patient is doing very well. The patient is up to her baseline level. The patien t is at high risk for recurrent admission. PHYSICAL EXAMINATION: VITAL SIGNS: Currently temperature 97.4, pulse 68, respiratory rate 12, and saturation 97%, blood p ressure 172/76, weight 130 pounds. GENERAL: The patient is currently alert, oriented, no acute distress. HEAD: Normocephalic, atraumatic. LUNGS: Clear. CARDIAC: S1, S2 regular without any significant murmur. ABDOMEN: Soft and benign. PEG tube in place. EXTREMITIES: No edema. NEUROLOGIC: Grossly nonfocal examination, she is physically deconditioning. Overall, this patient is medically stable for discharge. Paperwork for discharge done. Discharge medication reconciliation done. Total time spent on discharge day 32 minutes.
== END 2017-04-16 16:02 | DRG 668 ==
LOC: ERS 16:21 → CCU 20:46 → SURG B 04-10 15:49
PROVIDERS: ADMIT Internal Medicine; ATTEND Internal Medicine
PROC: 30233N1 Transfusion of Nonautologous Red Blood Cells into Peripheral Vein, Percutaneous Approach (ICD-10-PCS; 2017-04-09)
PROC: BT140ZZ Fluoroscopy of Kidneys, Ureters and Bladder using High Osmolar Contrast (ICD-10-PCS; principal; 2017-04-10)
PROC: 0TBB8ZX Excision of Bladder, Via Natural or Artificial Opening Endoscopic, Diagnostic (ICD-10-PCS; 2017-04-10)
DX: N30.41 Irradiation cystitis with hematuria (principal); R57.1 Hypovolemic shock; A04.72 Enterocolitis due to Clostridium difficile, not specified as recurrent; E44.0 Moderate protein-calorie malnutrition; R53.2 Functional quadriplegia; D62 Acute posthemorrhagic anemia; N13.30 Unspecified hydronephrosis; I10 Essential (primary) hypertension; Z85.41 Personal history of malignant neoplasm of cervix uteri; Z90.710 Acquired absence of both cervix and uterus; Z87.891 Personal history of nicotine dependence; E03.9 Hypothyroidism, unspecified; K21.9 Gastro-esophageal reflux disease without esophagitis; K44.9 Diaphragmatic hernia without obstruction or gangrene; J44.9 Chronic obstructive pulmonary disease, unspecified; K80.20 Calculus of gallbladder without cholecystitis without obstruction; Z93.1 Gastrostomy status; K20.9 Esophagitis, unspecified; S32.591D Other specified fracture of right pubis, subsequent encounter for fracture with routine healing; F41.8 Other specified anxiety disorders; Z68.22 Body mass index [BMI] 22.0-22.9, adult; Z91.040 Latex allergy status; Y84.2 Radiological procedure and radiotherapy as the cause of abnormal reaction of the patient, or of later complication, without mention of misadventure at the time of the procedure
CPT/HCPCS: 36415; 36430; 71010; 74176; 74420; 80048; 80053; 81003; 81015; 82274; 82805; 83605; 83735; 84100; 84484; 85025; 85610; 85730; 86850; 86870; 86900; 86901; 86922; 87040; 87086; 87324; 87449; 88112; 88305; 93005; 96361; 96365; 96366; 96375; A4216; C1758; C1769; C9113; J0360; J0692; J1956; J2001; J2250; J2270; J2274; J2405; J2543; J2704; J3010; J3370; J3475; J7050; P9016; Q9961

== ENCOUNTER 2017-07-15 11:49 | Inpatient (IN) | payer OTHER, SELFPAY ==
[2017-07-15] MEDS ORDERED: Pantoprazole 80 MG, Admixture Fee 1 EACH in Sodium Chloride 0.9% 100 ML IVP SCH (13:15)
[2017-07-15 13:28] LABS: #Eosinphils 0.4 thou/uL (0.0-0.7); #Lymphocytes 1.2 thou/uL (1.20-3.40); #Monocytes 0.5 thou/uL (0.11-0.59); #Neutrophils 3.5 thou/uL (1.40-6.50); %Eosinophils 6.5 % (0.0-10.0); %Lymphocytes 21.3 % (21.0-51.0); %Neutrophils 63.2 % (42.0-75.0); Hemoglobin 7.5 g/dL (12.0-16.0); Mean Corpuscular HGB CONC 31.8 g/dL (32.0-36.0); Mean Corpuscular Hemoglobin 30.5 pg (27.0-31.0); Mean Corpuscular Volume 95.9 fl (81.0-99.0); Mean Platelet Volume 6.1 fL (7.4-10.4); Platelet Count 507 thou/uL (130-400); RBC Distribution Width 16.5 % (11.5-14.5); Red Blood Cell (RBC) Count 2.46 mill/uL (4.20-5.40); White Blood Cell (WBC) Count 5.5 thou/uL (4.8-10.8)
[2017-07-15 13:39] LABS: PTT 33.7 SEC (22.9-36.1)
[2017-07-15 13:40] LABS: INR-International Normal Ratio 1.2
[2017-07-15 13:50] LABS: ALT (SGPT) 36 U/L (8-55); AST (SGOT) 19 U/L (5-34); Alkaline Phosphatase 495 U/L (40-150); Anion Gap 12 mmol/L (10-20); BUN (Urea Nitrogen) 32 mg/dL (9.8-20.1); Bilirubin, Total 0.2 mg/dL (0.2-1.2); Calc. Creatinine Clearance 0 mL/min (70-130); Calcium 9.8 mg/dL (7.8-10.44); Carbon Dioxide 29 mmol/L (22-29); Chloride 100 mmol/L (98-107); Estimated GFR-MDRD 67; Globulin 3.7 g/dL (2.4-3.5); Glucose 88 mg/dL (70-105); Potassium 4.5 mmol/L (3.5-5.1); Protein, Total 6.7 g/dL (6.0-8.3); Sodium 136 mmol/L (136-145)
[2017-07-15] MEDS ORDERED: ALPRAZolam 0.5 MG TAB PO PRN (15:25)
[2017-07-15] MEDS ORDERED: PROVENTIL INHALER 6.7 G (200 INHALATIONS) INH PRN (15:25)
[2017-07-15] MEDS ORDERED: Guaifenesin DM 100-10/5 ML UDCUP PO PRN (15:25)
[2017-07-15] MEDS ORDERED: Ondansetron HCl/PF 4 MG/2 ML Vial IVP PRN (15:25)
[2017-07-15 17:22] LABS: Hemoglobin 9.2 g/dL (12.0-16.0)
[2017-07-15 18:15] VITALS: BMI 23.0
[2017-07-15] MEDS ORDERED: FLU VACC QS2017-18 36 mo. & older 0.5 ML SYRINGE IM ONE (18:30)
[2017-07-15] MEDS ORDERED: Prevnar 13-Val Conj/PF 0.5 ML SYRINGE IM ONE (18:45)
[2017-07-15 20:52] LABS: Hemoglobin 9.6 g/dL (12.0-16.0)
[2017-07-15] MEDS: Mirtazapine 15 MG TAB PER TUBE SCH (21:20)
[2017-07-15] MEDS: Acetaminophen 325 MG TAB PO PRN (21:21)
[2017-07-15] MEDS: Docusate 100 MG CAP PO SCH (21:21)
[2017-07-15] MEDS: Folic Acid 1 MG TAB PO SCH (21:21)
[2017-07-15] MEDS: Propranolol 10 MG TAB PO SCH (21:21)
[2017-07-15] MEDS: buPROPion 75 MG TAB PO SCH (21:21)
[2017-07-15] MEDS: Gabapentin 300 MG CAP PO SCH (21:21)
--- NOTE | 2017-07-15 21:58 | HP ---
REASON FOR ADMISSION: Gastrointestinal bleed. HISTORY OF PRESENT ILLNESS: [facility] for bleeding per urethra/rectum. She also had loose stools. She lives at [facility] in [place]. Please note the majority of this history is obtained by my talking to the ER physician, ER records, [facility] records, and prior medical records, as the patient is not fully oriented. Patient states all she had was 1 stool today, which is not true per [facility] records. Her hemoglobin on arrival was 7.5 grams. She has had type and cross done and the first unit of blood is being infused as I examine her. PAST MEDICAL AND SURGICAL HISTORY: History of uterine cancer with prior radiation and chemotherapy, hypothyroidism, dyslipidemia, COPD, functional quadriplegia and being bedridden, hypertension, anxiety, depression, hysterectomy, x3, PEG tube, upper endoscopy with history of esophageal stricture, cystoscopy, recent history of bilateral hydronephrosis secondary to radiation cystitis. CURRENT MEDICATIONS: The patient is on aspirin 81 mg p.o. daily, propranolol 10 mg p.o. twice daily, ferrous sulfate 325 mg twice daily, potassium chloride extended release 20 mEq p.o. daily, levothyroxine 200 mcg p.o. daily, liothyronine 5 mcg p.o. daily, Ultram p.r.n. for pain, gabapentin 300 mg p.o. at bedtime, Remeron 15 mg p.o. at bedtime, folic acid 1 mg p.o. twice daily, bupropion 150 mg twice daily, albuterol nebulizer q.6 hourly p.r.n., citalopram 20 mg p.o. daily, vitamin D 3000 units p.o. daily, MiraLax 17 grams p.r.n., Florastor 250 mg p.o. daily, Protonix 40 mg p.o. daily, Xanax 3 times daily 0.5 mg p.r.n. for anxiety, vitamin B12 1000 mcg p.o. daily. ALLERGIES: LATEX GLOVES. PERSONAL HISTORY: Does not abuse alcohol or drugs. She is a [facility] resident at [place]. The patient quit smoking 2 years back, prior to which she has smoked 2 packs per day for nearly 30 years. FAMILY HISTORY: There is history of heart disease and stroke on the maternal side and stroke and COPD on the paternal side of the family. REVIEW OF SYSTEMS: Cannot be obtained, as patient is not cognitively intact. PHYSICAL EXAMINATION: GENERAL: The patient is a 56-year-old female, who is currently not in any acute distress. VITAL SIGNS: Blood pressure 126/66 on when EMS arrived at her [facility]. The patient's systolic blood pressure was 90 and was given a liter of bolus. Pulse currently 74 per minute, respiratory rate 14 per minute, temperature 97.8 degrees Fahrenheit, saturating 93% on 2 liters nasal cannula. NECK: Supple, no elevated JVD. HEENT: Eyes: Extraocular muscles intact. Pupils reacting to light. Oral cavity: Mucous membranes are moist. Pallor plus. No exudates or congestion. CARDIOVASCULAR SYSTEM: S1, S2 heard. Regular rhythm. RESPIRATORY SYSTEM: Air entry 1+ bilateral. No rales or rhonchi. ABDOMEN: Soft. Bowel sounds heard. No tenderness, rigidity, or guarding. EXTREMITIES: There is 1+ peripheral edema, no calf tenderness. VASCULAR SYSTEM: Peripheral pulses 1+ bilateral. No ischemic ulcerations or gangrene. CENTRAL NERVOUS SYSTEM: No gross focal signs seen. The patient moves both her feet, but does not do anything further. She is able to move both her hands as well. PSYCHIATRIC SYSTEM: No obvious hallucinations or delusions. LABORATORY AND X-RAY FINDINGS: White count of 5, H and H 7 and 23, MCV is 95 with a platelet count of 507. PT is 15, INR 1.2. Electrolytes are stable. BUN 32, creatinine 0.8, glucose 88. Liver enzymes: AST and ALT within normal limits. Alkaline phosphatase is 495, albumin is 3.0. Stool for C. difficile is negative. EKG strip by EMS shows normal sinus rhythm at 70 beats per minute. There are signs of RBBB seen. CLINICAL IMPRESSION AND PLAN: The patient will be admitted to medical floor for recurrent gastrointestinal bleed. Her hemoglobin during her last discharge from here was 10 grams and has dropped down to 7.5 grams now. She will be given 2 units of packed cells. GI consultation with Dr. Ribeiro, who has seen her and evaluated before, will be consulted. She has had prior upper endoscopy done here in 03/2017, which showed distal esophageal stricture and has had dilatations done as well for it. The patient also has had cystoscopy done on by Dr. Bradley Scruggs and has had a transurethral resection of bladder mass. She was suspected to have radiation cystitis with bleeding from her urinary bladder in 04/2017. Patient has multiple medical issues and is functionally very poor with being bedbound. She has functional quadriplegia as well. The plan is to give her 2 units of packed cell and have serial H and H. We will await GI opinion. We will hold her ferrous sulfate for now. We will continue albuterol inhaler, Xanax, Wellbutrin, Celexa, Neurontin, levothyroxine, mirtazapine and propranolol for now. She will be on Protonix drip and n.p.o. except medications for now. We will continue to closely monitor her on medical floor. Please note patient is a DNR on prior occasions and also carries out of hospital DNR. We will continue her here as a DO NOT RESUSCITATE for now. CIERA
[2017-07-15] MEDS: Pantoprazole 80 MG in Sodium Chloride 0.9% 100 ML IVPB SCH (23:31)
[2017-07-16] MEDS: Levothyroxine Sodium 100 MCG TAB PO SCH (05:09)
[2017-07-16 05:42] LABS: Hemoglobin 9.2 g/dL (12.0-16.0)
[2017-07-16 06:00] LABS: Anion Gap 13 mmol/L (10-20); BUN (Urea Nitrogen) 26 mg/dL (9.8-20.1); Calc. Creatinine Clearance 62 mL/min (70-130); Calcium 9.9 mg/dL (7.8-10.44); Carbon Dioxide 26 mmol/L (22-29); Chloride 105 mmol/L (98-107); Estimated GFR-MDRD 65; Glucose 85 mg/dL (70-105); Potassium 3.8 mmol/L (3.5-5.1); Sodium 140 mmol/L (136-145)
--- NOTE | 2017-07-16 06:41 | CON ---
DATE OF CONSULTATION: 07/15/2017 REASON FOR CONSULTATION: History of black tarry stool, anemia due to blood loss. HISTORY OF PRESENT ILLNESS: Ms. Alix Rodriguez is a very pleasant fragile looking 56-year-old Cauc[place] darlin female, who is known to me from before. The patient was hospitalized here in December of 2016 with a norexia, severe weight loss, depression. The patient underwent EGD and was found to have very tight distal esophageal stricture and underwent dialysis. Subsequently, because of decreasing oral intake, she had a PEG tube placement done by me. Subsequently, transferred to the alf. The patien tory was hospitalized again in 03/2017 with GI bleeding and was seen by Dr. Solitario Ribeiro at that time. Cara freed had an EGD done and was found to have tight esophageal stricture and erosive esophagitis. She unde rwent EGD, biopsy and dilation. The patient has done well since her last admission. The patient was brought to the ER today from the alf because of her lower abdominal pain over the last few days and also hematuria. The patient also informed the doctor that she has been having some di arrhea and some dark stools. A rectal exam done in the ER showed black tarry stool. The patient is admitted to the hospital because of the above reason. The patient appears very comfortable. She is awake, alert, and communicative. The patient denies abdominal pain at the present time. She denies any hematuria. However, she tells me her stools have been black for the last couple of weeks. She h as only 1 or 2 stools every day and the stools are actually black. She had one stool today and again the stool is black. She is also anemic. The patient has been doing well since her last EGD and dil ation. The patient it not having any more trouble swallowing and he is not coughing or choking. She also has no heartburn, etc. During the last admission, she was also seen by Dr. Kael Vargas and a lso Dr. Kael Huerta. She underwent retrograde pyelogram and cystoscopy with Dr. Huerta at that time. As per the operative report by Dr. Huerta, the patient had a bladder mass and that she also had hemat uria at that time. She underwent a transurethral resection of bladder mass, this was done in 04/[address] Kael Huerta. 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 No malignancy seen. The patient at least had not seen any blood in the urine recently as per the patient. She has no relevant symptoms. ALLERGIES: LATEX. SOCIAL HISTORY: The patient is a alf resident. She does not smoke or drink alcohol. FAMILY HISTORY: No family history of any GI or liver disease. MEDICATIONS: List reviewed. PAST SURGICAL HISTORY: Hysterectomy, and EGD and PEG tube placement using dilation done by me in 2017. REVIEW OF SYSTEMS: Unremarkable. PHYSICAL EXAMINATION: GENERAL: Reveals a fragile looking young female, who appears very comfortable. She is jm ke, alert, and communicative, little abdominal pain. VITAL SIGNS: Stable. Temperature 97.5 degrees Fahrenheit, pulse is 71, blood pressure 130/66. HEENT: Conjunctivae clear. NECK: Supple. No adenitis or thyromegaly noted. CARDIOVASCULAR: First and second heart sounds normal. LUNGS: Clear to auscultation. ABDOMEN: Soft to palpate. Abdomen is nontender. She had a PEG tube in the upper abdomen. The PEG tube site appears healthy. EXTREMITIES: No edema. LABORATORY DATA: From this afternoon at 1:10 p.m., hemoglobin 7.5, hematocrit 23.6. Surprisingly th e repeat one done at 5 o'clock, the hemoglobin is up to 9.2, hematocrit 28.3. I then irrigated the N G tube with a saline and the return is actually clear and does not show any blood or any coffee groun d material. CLINICAL IMPRESSION: 1. Black tarry stool over the last several days, representing upper GI bleeding. The patient had er osive esophagitis during the last admission. The patient with abdominal pain, no nausea. At the pre sent time, the bleeding has stopped as the NG aspirate is very clear. 2. Erosive esophagitis. 3. Esophageal stricture, esophageal dilation. 4. History of depression. 5. Bladder mass, status post blood transurethral resection with negative for malignancy. 6. Hypothyroidism. 7. Hyperlipidemia. 8. Hypertension. 9. Chronic obstructive pulmonary disease. 10. History of cervical cancer and functional paraplegia. RECOMMENDATION: 1. We will plan for EGD tomorrow as she is not having any active bleeding at the present time. 2. Recommend followup H and H. 3. Empiric PPI therapy and plan for EGD tomorrow.
[2017-07-16] MEDS: Propranolol 10 MG TAB PO SCH ×3 (09:25→20:10)
[2017-07-16] MEDS ORDERED: Lidocaine 1% PF 5 ML VIAL ONE (12:05)
--- NOTE | 2017-07-16 12:06 | OP ---
DATE OF PROCEDURE: 07/16/2017 SURGEON: Deven Jackson M.D. OPERATIVE PROCEDURE: 1. Esophagogastroduodenoscopy. 2. Esophageal balloon dilation with size 15-18 mm to stage 2. PREOPERATIVE DIAGNOSES: Melena, anemia due to blood loss. POSTOPERATIVE DIAGNOSES: 1. Tight distal esophageal stricture with esophagitis. 2. Large hiatus hernia. There was no other pathology seen to explain the patient's anemia and melena. PROCEDURE IN DETAIL: The patient was placed on her left lateral position and was given sedation by [facility] Anesthesia Department. A Pentax video gastroscope under direct vision was passed down the orophar ynx, past the upper esophageal sphincter into the distal esophagus. The patient had a very tight eso phageal stricture at 32-34 cm. The scope could not be advanced past the stricture. The stricture wa s circumferential and the mucosa actually appeared normal. A Bard balloon size 15-18 mm was placed i n the GE junction over the esophageal stricture and inflated to stage I for 2 minutes and then to sta ge II for 2 minutes. After dilation there was mucosal friability and erythema noted. The scope was advanced into the stomach. The patient does have esophagitis. The patient had a hiatus hernia. The fundus, cardia, gastric body, gastric antrum, no lesions. The previously placed G-tube was seen. T duodenal bulb and descending duodenum, no pathology seen. The stomach was decompressed and the sc ope removed. RECOMMENDATIONS: 1. Follow up H&H. 2. Transfuse p.r.n. 3. The patient will have colonoscopy. If the patient is agreeable I will plan for colonoscopy hopef ully tomorrow after a bowel prep.
[2017-07-16] MEDS: Docusate 100 MG CAP PO SCH ×2 (12:31→20:09)
[2017-07-16] MEDS: Folic Acid 1 MG TAB PO SCH ×2 (12:44→20:09)
[2017-07-16] MEDS: Acetaminophen 325 MG TAB PO PRN ×3 (12:44→20:11)
[2017-07-16] MEDS: buPROPion 75 MG TAB PO SCH ×2 (12:45→20:08)
[2017-07-16] MEDS: Citalopram 20 MG TAB PO SCH (12:45)
[2017-07-16] MEDS: Cyanocobalamin (Vitamin B-12) 1,000 MCG TAB PER TUBE SCH (12:45)
--- NOTE | 2017-07-16 13:30 | PDOC.PN ---
- Subjective Encounter Start Date: 07/16/17 Encounter Start Time: 13:15 Subjective: awake, had egd this am -: no sob - Objective MAR Reviewed: Yes Vital Signs & Weight: Vital Signs (12 hours) Temp Pulse Resp BP Pulse Ox 07/16/17 08:00 98.1 F 82 16 07/16/17 07:40 98.1 F 82 16 162/79 H 97 07/16/17 04:00 97.7 F 82 16 133/74 97 Weight Admit Weight 121 lb 11.2 oz Weight 121 lb 11.2 oz I&O: 07/15/17 07/16/17 07/17/17 06:59 06:59 06:59 Intake Total 240 Balance 240 Result Diagrams: 07/16/17 04:53 07/16/17 04:53 Phys Exam - Physical Examination HEENT: PERRLA, moist MMs Neck: no JVD, supple Respiratory: no rales, no rhonchi Cardiovascular: RRR, no significant murmur Gastrointestinal: soft, no distention, positive bowel sounds peg+ Musculoskeletal: pulses present, edema present Neurological: non-focal, moves all 4 limbs Dx/Plan (1) GI bleed Code(s): K92.2 - GASTROINTESTINAL HEMORRHAGE, UNSPECIFIED Status: Acute Qualifiers: GI bleed type/associated pathology: melena Qualified Code(s): K92.1 - Melena (2) Esophageal stricture Code(s): K22.2 - ESOPHAGEAL OBSTRUCTION Status: Chronic Comment: s/p dilatation 07/16/2017 (3) Anxiety and depression Code(s): F41.9 - ANXIETY DISORDER, UNSPECIFIED; F32.9 - MAJOR DEPRESSIVE DISORDER, SINGLE EPISODE, UNSPECIFIED Status: Chronic (4) COPD (chronic obstructive pulmonary disease) Status: Chronic Qualifiers: COPD type: unspecified COPD Qualified Code(s): J44.9 - Chronic obstructive pulmonary disease, unspecified (5) Functional quadriplegia Code(s): R53.2 - FUNCTIONAL QUADRIPLEGIA Status: Chronic (6) Hiatal hernia Code(s): K44.9 - DIAPHRAGMATIC HERNIA WITHOUT OBSTRUCTION OR GANGRENE Status: Chronic (7) Hypertension Code(s): I10 - ESSENTIAL (PRIMARY) HYPERTENSION Status: Chronic Qualifiers: Hypertension type: essential hypertension (8) Hypothyroidism Code(s): E03.9 - HYPOTHYROIDISM, UNSPECIFIED Status: Chronic Qualifiers: Hypothyroidism type: unspecified (9) Protein-calorie malnutrition, moderate Code(s): E44.0 - MODERATE PROTEIN-CALORIE MALNUTRITION Status: Chronic - Plan for colonoscopy in am -: h/h stable after 2 u prbc, 03/01 -: change protonix to via peg daily -: on celexa, welbutrin, remeron, xanax prn and propranolol -: d/w * . Review of Systems - Medications/Allergies Allergies/Adverse Reactions: Allergies Allergy/AdvReac Type Severity Reaction Status Date / Time latex Allergy Verified 12/17/16 20:46 Medications: Current Medications Acetaminophen (Tylenol) 650 mg PO Q4H PRN PRN Reason: Headache/Fever or Pain Last Admin: 07/16/17 12:44 Dose: 650 mg Albuterol Sulfate (Proventil Hfa) 1 puff INH QID PRN PRN Reason: Dyspnea/Wheezing/SOB Alprazolam (Xanax) 0.5 mg PO TID PRN PRN Reason: Anxiety Bupropion HCl (Wellbutrin) 75 mg PO BID [facility] Last Admin: 07/16/17 12:45 Dose: 75 mg Citalopram Hydrobromide (Celexa) 20 mg PO DAILY [facility] Last Admin: 07/16/17 12:45 Dose: 20 mg Cyanocobalamin (Vitamin B-12) 1,000 mcg PER TUBE DAILY [facility] Last Admin: 07/16/17 12:45 Dose: 1,000 mcg Docusate Sodium (Colace) 100 mg PO BID [facility] Last Admin: 07/16/17 12:31 Dose: Not Given Folic Acid (Folvite) 1 mg PO BID [facility] Last Admin: 07/16/17 12:44 Dose: 1 mg Gabapentin (Neurontin) 300 mg PO QPM [facility] Last Admin: 07/15/17 21:21 Dose: 300 mg Guaifenesin/Dextromethorphan (Robitussin Dm) 15 ml PO Q4H PRN PRN Reason: Cough Pantoprazole Sodium 80 mg/ (Sodium Chloride) 100 mls @ 10 mls/hr IVPB INF [facility] Last Admin: 07/15/17 23:31 Dose: 100 mls Levothyroxine Sodium (Synthroid) 200 mcg PO 0600 [facility] Last Admin: 07/16/17 05:09 Dose: 200 mcg Mirtazapine (Remeron) 15 mg PER TUBE HS [facility] Last Admin: 07/15/17 21:20 Dose: 15 mg Ondansetron HCl (Zofran) 4 mg IVP Q6H PRN PRN Reason: Nausea/Vomiting Polyethylene Glycol/Electrolytes (Golytely) 4,000 ml PO ONE [facility] Stop: 07/16/17 23:00 Propranolol HCl (Inderal) 10 mg PO TID [facility] Last Admin: 07/16/17 09:25 Dose: Not Given Sodium Chloride (Flush - Normal Saline) 10 ml IVF Q12HR [facility] Sodium Chloride (Flush - Normal Saline) 10 ml IVF PRN PRN PRN Reason: Saline Flush
[2017-07-16] MEDS: Pantoprazole 80 MG in Sodium Chloride 0.9% 100 ML IVPB SCH (16:50)
[2017-07-16] MEDS ORDERED: GoLYTELY 4,000 ml Bottle PO SCH (17:00)
[2017-07-16] MEDS: Morphine 5 MG/ML SYRINGE SLOW IVP PRN (19:08)
[2017-07-16] MEDS: Gabapentin 300 MG CAP PO SCH (20:09)
[2017-07-16] MEDS: Mirtazapine 15 MG TAB PER TUBE SCH (20:09)
[2017-07-17] MEDS: Pantoprazole 80 MG in Sodium Chloride 0.9% 100 ML IVPB SCH (02:54)
[2017-07-17] MEDS: Levothyroxine Sodium 100 MCG TAB PO SCH (04:28)
[2017-07-17] MEDS: Propranolol 10 MG TAB PO SCH ×3 (05:33→21:01)
[2017-07-17] MEDS: Docusate 100 MG CAP PO SCH ×2 (07:20→21:00)
[2017-07-17 08:20] LABS: #Eosinphils 0.2 thou/uL (0.0-0.7); #Lymphocytes 0.8 thou/uL (1.20-3.40); #Monocytes 0.4 thou/uL (0.11-0.59); #Neutrophils 3.6 thou/uL (1.40-6.50); %Basophils 0.3 % (0.0-1.0); %Eosinophils 4.7 % (0.0-10.0); %Lymphocytes 15.9 % (21.0-51.0); %Monocytes 7.3 % (0.0-10.0); %Neutrophils 71.8 % (42.0-75.0); Hemoglobin 9.7 g/dL (12.0-16.0); Mean Corpuscular HGB CONC 32.7 g/dL (32.0-36.0); Mean Corpuscular Hemoglobin 30.5 pg (27.0-31.0); Mean Corpuscular Volume 93.4 fl (81.0-99.0); Mean Platelet Volume 5.7 fL (7.4-10.4); Platelet Count 446 thou/uL (130-400); RBC Distribution Width 15.7 % (11.5-14.5); Red Blood Cell (RBC) Count 3.16 mill/uL (4.20-5.40); White Blood Cell (WBC) Count 5.1 thou/uL (4.8-10.8)
[2017-07-17 08:39] LABS: Anion Gap 17 mmol/L (10-20); BUN (Urea Nitrogen) 17 mg/dL (9.8-20.1); Calc. Creatinine Clearance 73 mL/min (70-130); Calcium 9.6 mg/dL (7.8-10.44); Carbon Dioxide 26 mmol/L (22-29); Chloride 101 mmol/L (98-107); Estimated GFR-MDRD 78; Glucose 83 mg/dL (70-105); Sodium 141 mmol/L (136-145)
[2017-07-17 08:42] LABS: Potassium 2.8 mmol/L (3.5-5.1)
[2017-07-17] MEDS ORDERED: GoLYTELY 4,000 ml Bottle PO SCH (11:00)
[2017-07-17] MEDS: buPROPion 75 MG TAB PO SCH ×2 (11:23→21:01)
[2017-07-17] MEDS: Cyanocobalamin (Vitamin B-12) 1,000 MCG TAB PER TUBE SCH (11:23)
[2017-07-17] MEDS: Citalopram 20 MG TAB PO SCH (11:24)
[2017-07-17] MEDS: Folic Acid 1 MG TAB PO SCH ×2 (11:24→21:01)
[2017-07-17] MEDS: Fleet Enema 133 ML BOT PR SCH ×3 (11:25→18:45)
--- NOTE | 2017-07-17 11:55 | PDOC.PN ---
- Subjective Encounter Start Date: 07/17/17 Encounter Start Time: 11:00 Subjective: no sob, feels better - Objective MAR Reviewed: Yes Vital Signs & Weight: Vital Signs (12 hours) Temp Pulse Resp BP Pulse Ox 07/17/17 09:37 99.0 F 89 16 126/84 92 L 07/17/17 08:20 98.6 F 82 16 157/72 H 94 L Weight Admit Weight 121 lb 11.2 oz Weight 121 lb 11.2 oz I&O: 07/16/17 07/17/17 07/18/17 06:59 06:59 06:59 Intake Total 240 170 Balance 240 170 Result Diagrams: 07/17/17 08:06 07/17/17 08:05 Phys Exam - Physical Examination HEENT: PERRLA, moist MMs Neck: no JVD, supple Respiratory: no wheezing, no rales Cardiovascular: RRR, no significant murmur Gastrointestinal: soft, no distention, positive bowel sounds Musculoskeletal: pulses present, edema present Neurological: non-focal Dx/Plan (1) GI bleed Code(s): K92.2 - GASTROINTESTINAL HEMORRHAGE, UNSPECIFIED Status: Acute Qualifiers: GI bleed type/associated pathology: melena Qualified Code(s): K92.1 - Melena (2) Esophageal stricture Code(s): K22.2 - ESOPHAGEAL OBSTRUCTION Status: Chronic Comment: s/p dilatation 07/16/2017 (3) Anxiety and depression Code(s): F41.9 - ANXIETY DISORDER, UNSPECIFIED; F32.9 - MAJOR DEPRESSIVE DISORDER, SINGLE EPISODE, UNSPECIFIED Status: Chronic (4) COPD (chronic obstructive pulmonary disease) Status: Chronic Qualifiers: COPD type: unspecified COPD Qualified Code(s): J44.9 - Chronic obstructive pulmonary disease, unspecified (5) Functional quadriplegia Code(s): R53.2 - FUNCTIONAL QUADRIPLEGIA Status: Chronic (6) Hiatal hernia Code(s): K44.9 - DIAPHRAGMATIC HERNIA WITHOUT OBSTRUCTION OR GANGRENE Status: Chronic (7) Hypertension Code(s): I10 - ESSENTIAL (PRIMARY) HYPERTENSION Status: Chronic Qualifiers: Hypertension type: essential hypertension (8) Hypothyroidism Code(s): E03.9 - HYPOTHYROIDISM, UNSPECIFIED Status: Chronic Qualifiers: Hypothyroidism type: unspecified (9) Protein-calorie malnutrition, moderate Code(s): E44.0 - MODERATE PROTEIN-CALORIE MALNUTRITION Status: Chronic (10) Anemia due to acute blood loss Code(s): D62 - ACUTE POSTHEMORRHAGIC ANEMIA Status: Acute - Plan h/h stable -: poor prep for colonoscopy, fleets x2 for now, repeat colonoscopy in am -: protonix po, replace potassium -: ultram prn for pain -: still has black stools * . Review of Systems - Medications/Allergies Allergies/Adverse Reactions: Allergies Allergy/AdvReac Type Severity Reaction Status Date / Time latex Allergy Verified 12/17/16 20:46 Medications: Current Medications Acetaminophen (Tylenol) 650 mg PO Q4H PRN PRN Reason: Headache/Fever or Pain Last Admin: 07/16/17 20:11 Dose: 650 mg Albuterol Sulfate (Proventil Hfa) 1 puff INH QID PRN PRN Reason: Dyspnea/Wheezing/SOB Alprazolam (Xanax) 0.5 mg PO TID PRN PRN Reason: Anxiety Bupropion HCl (Wellbutrin) 75 mg PO BID [facility] Last Admin: 07/17/17 11:23 Dose: 75 mg Citalopram Hydrobromide (Celexa) 20 mg PO DAILY [facility] Last Admin: 07/17/17 11:24 Dose: 20 mg Cyanocobalamin (Vitamin B-12) 1,000 mcg PER TUBE DAILY [facility] Last Admin: 07/17/17 11:23 Dose: 1,000 mcg Docusate Sodium (Colace) 100 mg PO BID [facility] Last Admin: 07/17/17 07:20 Dose: Not Given Folic Acid (Folvite) 1 mg PO BID [facility] Last Admin: 07/17/17 11:24 Dose: 1 mg Gabapentin (Neurontin) 300 mg PO QPM [facility] Last Admin: 07/16/17 20:09 Dose: 300 mg Guaifenesin/Dextromethorphan (Robitussin Dm) 15 ml PO Q4H PRN PRN Reason: Cough Levothyroxine Sodium (Synthroid) 200 mcg PO 0600 [facility] Last Admin: 07/17/17 04:28 Dose: Not Given Mirtazapine (Remeron) 15 mg PER TUBE HS [facility] Last Admin: 07/16/17 20:09 Dose: 15 mg Morphine Sulfate (Morphine) 1 mg SLOW IVP Q6H PRN PRN Reason: Pain Last Admin: 07/16/17 19:08 Dose: 1 mg Ondansetron HCl (Zofran) 4 mg IVP Q6H PRN PRN Reason: Nausea/Vomiting Pantoprazole Sodium (Protonix) 40 mg PO DAILY [facility] Last Admin: 07/17/17 11:24 Dose: 40 mg Polyethylene Glycol/Electrolytes (Golytely) 4,000 ml PO ONE [facility] Stop: 07/17/17 18:00 Potassium Chloride (Klor-Con) 40 meq PER TUBE Q6HR [facility] Stop: 07/19/17 00:00 Last Admin: 07/17/17 11:23 Dose: 40 meq Propranolol HCl (Inderal) 10 mg PO TID [facility] Last Admin: 07/17/17 05:33 Dose: 10 mg Sodium Biphosphate/Sodium Phosphate (Fleet Enema) 133 ml ID Q4H [facility] Stop: 07/17/17 19:01 Last Admin: 07/17/17 11:25 Dose: 133 ml Sodium Chloride (Flush - Normal Saline) 10 ml IVF Q12HR [facility] Last Admin: 07/17/17 11:24 Dose: Not Given Sodium Chloride (Flush - Normal Saline) 10 ml IVF PRN PRN PRN Reason: Saline Flush
[2017-07-17] MEDS: traMADol HCl 50 MG TAB PO PRN (15:50)
[2017-07-17] MEDS ORDERED: GoLYTELY 4,000 ml Bottle PER TUBE SCH (18:30)
[2017-07-17] MEDS: Gabapentin 300 MG CAP PO SCH (21:01)
[2017-07-17] MEDS: Mirtazapine 15 MG TAB PER TUBE SCH (21:01)
[2017-07-18 05:00] LABS: #Eosinphils 0.3 thou/uL (0.0-0.7); #Lymphocytes 0.9 thou/uL (1.20-3.40); #Monocytes 0.4 thou/uL (0.11-0.59); #Neutrophils 2.7 thou/uL (1.40-6.50); %Basophils 0.7 % (0.0-1.0); %Eosinophils 6.6 % (0.0-10.0); %Lymphocytes 20.3 % (21.0-51.0); %Neutrophils 62.4 % (42.0-75.0); Hemoglobin 9.1 g/dL (12.0-16.0); Mean Corpuscular HGB CONC 31.8 g/dL (32.0-36.0); Mean Corpuscular Hemoglobin 29.7 pg (27.0-31.0); Mean Corpuscular Volume 93.4 fl (81.0-99.0); Mean Platelet Volume 5.9 fL (7.4-10.4); Platelet Count 448 thou/uL (130-400); RBC Distribution Width 15.5 % (11.5-14.5); Red Blood Cell (RBC) Count 3.04 mill/uL (4.20-5.40); White Blood Cell (WBC) Count 4.4 thou/uL (4.8-10.8)
[2017-07-18 05:23] LABS: Anion Gap 14 mmol/L (10-20); BUN (Urea Nitrogen) 11 mg/dL (9.8-20.1); Calc. Creatinine Clearance 77 mL/min (70-130); Calcium 9.6 mg/dL (7.8-10.44); Carbon Dioxide 28 mmol/L (22-29); Chloride 101 mmol/L (98-107); Estimated GFR-MDRD 83; Glucose 81 mg/dL (70-105); Potassium 3.6 mmol/L (3.5-5.1); Sodium 139 mmol/L (136-145)
[2017-07-18] MEDS: Levothyroxine Sodium 100 MCG TAB PO SCH (05:28)
[2017-07-18] MEDS: Propranolol 10 MG TAB PO SCH ×3 (05:29→20:24)
[2017-07-18] MEDS: Docusate 100 MG CAP PO SCH ×2 (09:54→20:23)
--- NOTE | 2017-07-18 10:41 | PDOC.PN ---
- Subjective Encounter Start Date: 07/18/17 Encounter Start Time: 08:50 Subjective: no sob, awake, still stool is not clear -: got 2 liters golytely yesterday evening along with fleets enema -: no narayan bleeding - Objective MAR Reviewed: Yes Vital Signs & Weight: Vital Signs (12 hours) Temp Pulse Resp BP Pulse Ox 07/18/17 08:00 98.1 F 71 18 166/81 H 94 L 07/18/17 04:45 98.1 F 66 16 168/69 H 94 L 07/18/17 00:00 97.5 F L 68 16 154/70 H 94 L Weight Admit Weight 121 lb 11.2 oz Weight 121 lb 11.2 oz I&O: 07/17/17 07/18/17 07/19/17 06:59 06:59 06:59 Intake Total 170 700 Balance 170 700 Result Diagrams: 07/18/17 03:53 07/18/17 03:53 Additional Labs: Accuchecks 07/17/17 22:07 POC Glucose 91 Phys Exam - Physical Examination HEENT: PERRLA, moist MMs Neck: no JVD, supple Respiratory: no wheezing, no rales Cardiovascular: RRR, no significant murmur Gastrointestinal: soft, non-tender, positive bowel sounds Musculoskeletal: pulses present, edema present Neurological: non-focal Psychiatric: A&O x 3 Dx/Plan (1) GI bleed Code(s): K92.2 - GASTROINTESTINAL HEMORRHAGE, UNSPECIFIED Status: Acute Qualifiers: GI bleed type/associated pathology: melena Qualified Code(s): K92.1 - Melena (2) Esophageal stricture Code(s): K22.2 - ESOPHAGEAL OBSTRUCTION Status: Chronic Comment: s/p dilatation 07/16/2017 (3) Anxiety and depression Code(s): F41.9 - ANXIETY DISORDER, UNSPECIFIED; F32.9 - MAJOR DEPRESSIVE DISORDER, SINGLE EPISODE, UNSPECIFIED Status: Chronic (4) COPD (chronic obstructive pulmonary disease) Status: Chronic Qualifiers: COPD type: unspecified COPD Qualified Code(s): J44.9 - Chronic obstructive pulmonary disease, unspecified (5) Functional quadriplegia Code(s): R53.2 - FUNCTIONAL QUADRIPLEGIA Status: Chronic (6) Hiatal hernia Code(s): K44.9 - DIAPHRAGMATIC HERNIA WITHOUT OBSTRUCTION OR GANGRENE Status: Chronic (7) Hypertension Code(s): I10 - ESSENTIAL (PRIMARY) HYPERTENSION Status: Chronic Qualifiers: Hypertension type: essential hypertension (8) Hypothyroidism Code(s): E03.9 - HYPOTHYROIDISM, UNSPECIFIED Status: Chronic Qualifiers: Hypothyroidism type: unspecified (9) Protein-calorie malnutrition, moderate Code(s): E44.0 - MODERATE PROTEIN-CALORIE MALNUTRITION Status: Chronic (10) Anemia due to acute blood loss Code(s): D62 - ACUTE POSTHEMORRHAGIC ANEMIA Status: Acute (11) Hypokalemia Code(s): E87.6 - HYPOKALEMIA Status: Acute - Plan for colonoscopy today if prep is good -: electrolytes are stabilizing -: Hb around 9g -: will start peg feeding, iron after colonoscopy -: hemostable now * . Review of Systems - Medications/Allergies Allergies/Adverse Reactions: Allergies Allergy/AdvReac Type Severity Reaction Status Date / Time latex Allergy Verified 12/17/16 20:46 Medications: Current Medications Acetaminophen (Tylenol) 650 mg PO Q4H PRN PRN Reason: Headache/Fever or Pain Last Admin: 07/16/17 20:11 Dose: 650 mg Albuterol Sulfate (Proventil Hfa) 1 puff INH QID PRN PRN Reason: Dyspnea/Wheezing/SOB Alprazolam (Xanax) 0.5 mg PO TID PRN PRN Reason: Anxiety Last Admin: 07/17/17 22:23 Dose: 0.5 mg Bupropion HCl (Wellbutrin) 75 mg PO BID [facility] Last Admin: 07/17/17 21:01 Dose: 75 mg Citalopram Hydrobromide (Celexa) 20 mg PO DAILY [facility] Last Admin: 07/17/17 11:24 Dose: 20 mg Cyanocobalamin (Vitamin B-12) 1,000 mcg PER TUBE DAILY [facility] Last Admin: 07/17/17 11:23 Dose: 1,000 mcg Docusate Sodium (Colace) 100 mg PO BID [facility] Last Admin: 07/18/17 09:54 Dose: Not Given Folic Acid (Folvite) 1 mg PO BID [facility] Last Admin: 07/17/17 21:01 Dose: 1 mg Gabapentin (Neurontin) 300 mg PO QPM [facility] Last Admin: 07/17/17 21:01 Dose: 300 mg Guaifenesin/Dextromethorphan (Robitussin Dm) 15 ml PO Q4H PRN PRN Reason: Cough Levothyroxine Sodium (Synthroid) 200 mcg PO 0600 [facility] Last Admin: 07/18/17 05:28 Dose: Not Given Mirtazapine (Remeron) 15 mg PER TUBE HS [facility] Last Admin: 07/17/17 21:01 Dose: 15 mg Morphine Sulfate (Morphine) 1 mg SLOW IVP Q6H PRN PRN Reason: Severe Pain (7-10) Last Admin: 07/16/17 19:08 Dose: 1 mg Ondansetron HCl (Zofran) 4 mg IVP Q6H PRN PRN Reason: Nausea/Vomiting Last Admin: 07/17/17 18:58 Dose: 4 mg Pantoprazole Sodium (Protonix) 40 mg PER TUBE DAILY [facility] Potassium Chloride (Klor-Con) 40 meq PER TUBE Q6HR [facility] Stop: 07/19/17 00:00 Last Admin: 07/18/17 05:28 Dose: Not Given Propranolol HCl (Inderal) 10 mg PO TID [facility] Last Admin: 07/18/17 05:29 Dose: 10 mg Sodium Chloride (Flush - Normal Saline) 10 ml IVF Q12HR [facility] Last Admin: 07/17/17 21:01 Dose: 10 ml Sodium Chloride (Flush - Normal Saline) 10 ml IVF PRN PRN PRN Reason: Saline Flush Tramadol HCl (Ultram) 50 mg PO Q6H PRN PRN Reason: Moderate Pain (4-6) Last Admin: 07/17/17 15:50 Dose: 50 mg
[2017-07-18] MEDS: Folic Acid 1 MG TAB PO SCH ×2 (10:51→20:23)
[2017-07-18] MEDS: buPROPion 75 MG TAB PO SCH ×2 (10:52→20:23)
[2017-07-18] MEDS: Citalopram 20 MG TAB PO SCH (10:53)
[2017-07-18] MEDS: Cyanocobalamin (Vitamin B-12) 1,000 MCG TAB PER TUBE SCH (10:53)
[2017-07-18] MEDS: Pantoprazole 40 MG GRANULES PACKET PER TUBE SCH (10:54)
[2017-07-18] MEDS ORDERED: Lidocaine 1% PF 5 ML VIAL ONE (14:25)
[2017-07-18] MEDS: Morphine 5 MG/ML SYRINGE SLOW IVP PRN (15:20)
[2017-07-18] MEDS: traMADol HCl 50 MG TAB PO PRN (18:15)
[2017-07-18] MEDS: Gabapentin 300 MG CAP PO SCH (20:23)
[2017-07-18] MEDS: Mirtazapine 15 MG TAB PER TUBE SCH (20:23)
--- NOTE | 2017-07-19 00:41 | PRG ---
DATE OF SERVICE: 07/18/2017 HISTORY OF PRESENT ILLNESS: This is a 56-year-old female hospitalized with anemia, black t arry stool over the weekend. The patient underwent EGD and found to have no source of bleeding in th e stomach. Plan was being made for colonoscopy yesterday. The patient was given GoLYTELY prep on Mo nd evening and was taken for endoscopy yesterday morning. Before the colonoscopy done, a rectal ex am was done. The rectal exam done showed fecal impaction, large amount of solid stool. The patient has had 2 Fleet enemas yesterday and also another half a gallon of GoLYTELY. This morning had the re ctal exam at the bedside and rectal exam shows still a large amount of fecal material. The stool paula ears black. The patient has nothing to eat or drink for nearly 3 days and has been on GoLYTELY again yesterday and another gallon at last night. She also had 2 enemas. She appears to have fecal impac tion, it was very difficult really to clean the patient out. She appears comfortable. OBJECTIVE: VITAL SIGNS: Stable, afebrile. Pulse is 71, blood pressure 136/78. CARDIOVASCULAR SYSTEM: Within normal limits. ABDOMEN: Soft to palpate. Abdomen is nontender. RECTAL EXAM: Rectal exam done showed again fecal impaction with large amount of solid food. I was a ble to break the stool loose using a finger solid stool. RECOMMENDATIONS: 1. Digital impaction. 2. If the patient can be cleaned out, gopefully, we can perform a colonoscopy tomorrow. Her blood c ount has been stable and the dark stool on the rectal exam reveals positive old blood. The blood cou nt has been stable over the last 3 days.
[2017-07-19] MEDS: Levothyroxine Sodium 100 MCG TAB PO SCH (05:53)
[2017-07-19] MEDS: Propranolol 10 MG TAB PO SCH ×3 (05:53→20:19)
[2017-07-19] MEDS ORDERED: GoLYTELY 4,000 ml Bottle PO SCH (06:00)
[2017-07-19] MEDS: Morphine 5 MG/ML SYRINGE SLOW IVP PRN ×2 (07:56→16:31)
[2017-07-19] MEDS: Cyanocobalamin (Vitamin B-12) 1,000 MCG TAB PER TUBE SCH (08:47)
[2017-07-19] MEDS: Citalopram 20 MG TAB PO SCH (08:47)
[2017-07-19] MEDS: Folic Acid 1 MG TAB PO SCH ×2 (08:47→20:19)
[2017-07-19] MEDS: buPROPion 75 MG TAB PO SCH ×2 (08:47→20:19)
[2017-07-19] MEDS: Pantoprazole 40 MG GRANULES PACKET PER TUBE SCH (08:47)
[2017-07-19] MEDS: Docusate 100 MG CAP PO SCH ×2 (10:06→20:18)
[2017-07-19] MEDS: traMADol HCl 50 MG TAB PO PRN (10:12)
--- NOTE | 2017-07-19 13:03 | PDOC.PN ---
- Subjective Encounter Start Date: 07/19/17 Encounter Start Time: 07:45 Subjective: is getting additional golytely of 2liters from this am via peg -: stool is not clear yet - Objective MAR Reviewed: Yes Vital Signs & Weight: Vital Signs (12 hours) Temp Pulse Resp BP Pulse Ox 07/19/17 08:00 97.8 F 58 L 16 07/19/17 07:53 97.8 F 58 L 16 142/75 H 94 L Weight Admit Weight 121 lb 11.2 oz Weight 121 lb 11.2 oz I&O: 07/18/17 07/19/17 07/20/17 06:59 06:59 06:59 Intake Total 700 Balance 700 Result Diagrams: 07/18/17 03:53 07/18/17 03:53 Phys Exam - Physical Examination HEENT: PERRLA, moist MMs Neck: no JVD, supple Respiratory: no wheezing, no rales Cardiovascular: RRR, no significant murmur Gastrointestinal: soft, non-tender, no distention, positive bowel sounds Musculoskeletal: pulses present, edema present Neurological: non-focal, moves all 4 limbs Psychiatric: A&O x 3 Dx/Plan (1) GI bleed Code(s): K92.2 - GASTROINTESTINAL HEMORRHAGE, UNSPECIFIED Status: Acute Qualifiers: GI bleed type/associated pathology: melena Qualified Code(s): K92.1 - Melena (2) Esophageal stricture Code(s): K22.2 - ESOPHAGEAL OBSTRUCTION Status: Chronic Comment: s/p dilatation 07/16/2017 (3) Anxiety and depression Code(s): F41.9 - ANXIETY DISORDER, UNSPECIFIED; F32.9 - MAJOR DEPRESSIVE DISORDER, SINGLE EPISODE, UNSPECIFIED Status: Chronic (4) COPD (chronic obstructive pulmonary disease) Status: Chronic Qualifiers: COPD type: unspecified COPD Qualified Code(s): J44.9 - Chronic obstructive pulmonary disease, unspecified (5) Functional quadriplegia Code(s): R53.2 - FUNCTIONAL QUADRIPLEGIA Status: Chronic (6) Hiatal hernia Code(s): K44.9 - DIAPHRAGMATIC HERNIA WITHOUT OBSTRUCTION OR GANGRENE Status: Chronic (7) Hypertension Code(s): I10 - ESSENTIAL (PRIMARY) HYPERTENSION Status: Chronic Qualifiers: Hypertension type: essential hypertension (8) Hypothyroidism Code(s): E03.9 - HYPOTHYROIDISM, UNSPECIFIED Status: Chronic Qualifiers: Hypothyroidism type: unspecified (9) Protein-calorie malnutrition, moderate Code(s): E44.0 - MODERATE PROTEIN-CALORIE MALNUTRITION Status: Chronic (10) Anemia due to acute blood loss Code(s): D62 - ACUTE POSTHEMORRHAGIC ANEMIA Status: Acute (11) Hypokalemia Code(s): E87.6 - HYPOKALEMIA Status: Acute (12) Fecal impaction Code(s): K56.41 - FECAL IMPACTION Status: Acute - Plan for colonoscopy today if her stool clears up -: had multiple attempts of digital disimpaction, total of 6+2 liters of golyt -: abd is benign -: h/h is stable -: dc plan in am to [facility] if colonoscopy is normal * . Review of Systems - Medications/Allergies Allergies/Adverse Reactions: Allergies Allergy/AdvReac Type Severity Reaction Status Date / Time latex Allergy Verified 12/17/16 20:46 Medications: Current Medications Acetaminophen (Tylenol) 650 mg PO Q4H PRN PRN Reason: Headache/Fever or Pain Last Admin: 07/16/17 20:11 Dose: 650 mg Albuterol Sulfate (Proventil Hfa) 1 puff INH QID PRN PRN Reason: Dyspnea/Wheezing/SOB Alprazolam (Xanax) 0.5 mg PO TID PRN PRN Reason: Anxiety Last Admin: 07/17/17 22:23 Dose: 0.5 mg Bupropion HCl (Wellbutrin) 75 mg PO BID [facility] Last Admin: 07/19/17 08:47 Dose: 75 mg Citalopram Hydrobromide (Celexa) 20 mg PO DAILY [facility] Last Admin: 07/19/17 08:47 Dose: 20 mg Cyanocobalamin (Vitamin B-12) 1,000 mcg PER TUBE DAILY [facility] Last Admin: 07/19/17 08:47 Dose: 1,000 mcg Docusate Sodium (Colace) 100 mg PO BID [facility] Last Admin: 07/19/17 10:06 Dose: Not Given Folic Acid (Folvite) 1 mg PO BID [facility] Last Admin: 07/19/17 08:47 Dose: 1 mg Gabapentin (Neurontin) 300 mg PO QPM [facility] Last Admin: 07/18/17 20:23 Dose: 300 mg Guaifenesin/Dextromethorphan (Robitussin Dm) 15 ml PO Q4H PRN PRN Reason: Cough Levothyroxine Sodium (Synthroid) 200 mcg PO 0600 [facility] Last Admin: 07/19/17 05:53 Dose: 200 mcg Mirtazapine (Remeron) 15 mg PER TUBE HS [facility] Last Admin: 07/18/17 20:23 Dose: 15 mg Morphine Sulfate (Morphine) 1 mg SLOW IVP Q6H PRN PRN Reason: Severe Pain (7-10) Last Admin: 07/19/17 07:56 Dose: 1 mg Ondansetron HCl (Zofran) 4 mg IVP Q6H PRN PRN Reason: Nausea/Vomiting Last Admin: 07/17/17 18:58 Dose: 4 mg Pantoprazole Sodium (Protonix) 40 mg PER TUBE DAILY [facility] Last Admin: 07/19/17 08:47 Dose: 40 mg Propranolol HCl (Inderal) 10 mg PO TID [facility] Last Admin: 07/19/17 05:53 Dose: 10 mg Sodium Chloride (Flush - Normal Saline) 10 ml IVF Q12HR [facility] Last Admin: 07/19/17 10:06 Dose: Not Given Sodium Chloride (Flush - Normal Saline) 10 ml IVF PRN PRN PRN Reason: Saline Flush Tramadol HCl (Ultram) 50 mg PO Q6H PRN PRN Reason: Moderate Pain (4-6) Last Admin: 07/19/17 10:12 Dose: 25 mg
[2017-07-19] MEDS ORDERED: Lidocaine 1% PF 5 ML VIAL ONE (15:05)
[2017-07-19] MEDS ORDERED: Propofol 200 MG/20 ML VIAL ONE (15:05)
[2017-07-19] MEDS: Mirtazapine 15 MG TAB PER TUBE SCH (20:19)
[2017-07-19] MEDS: Gabapentin 300 MG CAP PO SCH (20:19)
[2017-07-20 07:20] VITALS: BP 144/69; TEMP 97.7
[2017-07-20] MEDS: Pantoprazole 40 MG GRANULES PACKET PER TUBE SCH (08:18)
[2017-07-20] MEDS: Propranolol 10 MG TAB PO SCH ×2 (08:18→14:54)
[2017-07-20] MEDS: Cyanocobalamin (Vitamin B-12) 1,000 MCG TAB PER TUBE SCH (08:19)
[2017-07-20] MEDS: Docusate 100 MG CAP PO SCH (08:19)
[2017-07-20] MEDS: buPROPion 75 MG TAB PO SCH (08:19)
[2017-07-20] MEDS: Citalopram 20 MG TAB PO SCH (08:19)
[2017-07-20] MEDS: Folic Acid 1 MG TAB PO SCH (08:19)
[2017-07-20] MEDS: Morphine 5 MG/ML SYRINGE SLOW IVP PRN ×2 (08:21→13:43)
[2017-07-20] MEDS ORDERED: Levothyroxine Sodium 100 MCG TAB PO SCH (08:30)
[2017-07-20 10:58] LABS: #Eosinphils 0.3 thou/uL (0.0-0.7); #Lymphocytes 0.8 thou/uL (1.20-3.40); #Monocytes 0.3 thou/uL (0.11-0.59); #Neutrophils 1.8 thou/uL (1.40-6.50); %Basophils 0.6 % (0.0-1.0); %Eosinophils 8.5 % (0.0-10.0); %Monocytes 9.5 % (0.0-10.0); %Neutrophils 57.3 % (42.0-75.0); Hemoglobin 9.4 g/dL (12.0-16.0); Mean Corpuscular HGB CONC 31.3 g/dL (32.0-36.0); Mean Corpuscular Hemoglobin 29.4 pg (27.0-31.0); Mean Corpuscular Volume 93.8 fl (81.0-99.0); Mean Platelet Volume 5.4 fL (7.4-10.4); Platelet Count 355 thou/uL (130-400); RBC Distribution Width 15.2 % (11.5-14.5); White Blood Cell (WBC) Count 3.2 thou/uL (4.8-10.8)
[2017-07-20 11:19] LABS: Anion Gap 11 mmol/L (10-20); BUN (Urea Nitrogen) 14 mg/dL (9.8-20.1); Calc. Creatinine Clearance 76 mL/min (70-130); Calcium 9.2 mg/dL (7.8-10.44); Carbon Dioxide 30 mmol/L (22-29); Chloride 101 mmol/L (98-107); Estimated GFR-MDRD 82; Glucose 118 mg/dL (70-105); Potassium 3.3 mmol/L (3.5-5.1); Sodium 139 mmol/L (136-145)
--- NOTE | 2017-07-20 12:37 | PDOC.PN ---
- Subjective Encounter Start Date: 07/20/17 Encounter Start Time: 11:25 Subjective: no further bleeding or melena -: feels good this am - Objective MAR Reviewed: Yes Vital Signs & Weight: Vital Signs (12 hours) Temp Pulse Resp BP Pulse Ox 07/20/17 08:00 97.7 F 60 16 07/20/17 07:20 97.7 F 60 16 144/69 H 97 Weight Admit Weight 121 lb 11.2 oz Weight 121 lb 11.2 oz I&O: 07/19/17 07/20/17 07/21/17 06:59 06:59 06:59 Intake Total 780 Balance 780 Result Diagrams: 07/20/17 10:53 07/20/17 10:53 Phys Exam - Physical Examination HEENT: PERRLA, moist MMs Neck: no JVD, supple Respiratory: no wheezing, no rales Cardiovascular: RRR, no significant murmur Gastrointestinal: soft, non-tender, positive bowel sounds Musculoskeletal: pulses present, edema present Neurological: non-focal Psychiatric: normal affect, A&O x 3 Dx/Plan (1) GI bleed Code(s): K92.2 - GASTROINTESTINAL HEMORRHAGE, UNSPECIFIED Status: Acute Qualifiers: GI bleed type/associated pathology: melena Qualified Code(s): K92.1 - Melena (2) Esophageal stricture Code(s): K22.2 - ESOPHAGEAL OBSTRUCTION Status: Chronic Comment: s/p dilatation 07/16/2017 (3) Anxiety and depression Code(s): F41.9 - ANXIETY DISORDER, UNSPECIFIED; F32.9 - MAJOR DEPRESSIVE DISORDER, SINGLE EPISODE, UNSPECIFIED Status: Chronic (4) COPD (chronic obstructive pulmonary disease) Status: Chronic Qualifiers: COPD type: unspecified COPD Qualified Code(s): J44.9 - Chronic obstructive pulmonary disease, unspecified (5) Functional quadriplegia Code(s): R53.2 - FUNCTIONAL QUADRIPLEGIA Status: Chronic (6) Hiatal hernia Code(s): K44.9 - DIAPHRAGMATIC HERNIA WITHOUT OBSTRUCTION OR GANGRENE Status: Chronic (7) Hypertension Code(s): I10 - ESSENTIAL (PRIMARY) HYPERTENSION Status: Chronic Qualifiers: Hypertension type: essential hypertension (8) Hypothyroidism Code(s): E03.9 - HYPOTHYROIDISM, UNSPECIFIED Status: Chronic Qualifiers: Hypothyroidism type: unspecified (9) Protein-calorie malnutrition, moderate Code(s): E44.0 - MODERATE PROTEIN-CALORIE MALNUTRITION Status: Chronic (10) Anemia due to acute blood loss Code(s): D62 - ACUTE POSTHEMORRHAGIC ANEMIA Status: Acute (11) Hypokalemia Code(s): E87.6 - HYPOKALEMIA Status: Acute (12) Fecal impaction Code(s): K56.41 - FECAL IMPACTION Status: Resolved - Plan h/h stable -: colonoscopy showed polyp, no mass -: dc pt to snf -: bowel regimen to prevent impaction * .
[2017-07-20] MEDS: traMADol HCl 50 MG TAB PO PRN (16:32)
--- NOTE | 2017-07-20 17:35 | DIS ---
DATE OF ADMISSION: 07/15/2017 DATE OF DISCHARGE: 07/20/2017 DISCHARGE DISPOSITION: To [facility]. PRIMARY DISCHARGE DIAGNOSES: Gastrointestinal bleed with melena and acute blood loss anemia, stable; history of esophageal stricture, status post dilatation done on 07/16/2017; chronic obstructive pulm onary disease; functional quadriplegia and is bedbound; hiatal hernia; hypertension; hypothyroidism; moderate protein malnutrition; PEG tube feeding; fecal impaction, resolved; hypokalemia, resolved. PROCEDURES DONE DURING HOSPITALIZATION: The patient has had upper endoscopy done by Dr. Jackson on 07/16/2017 and was found to have had tight distal esophageal stricture with esophagitis and large hi atus hernia. She has had dilatation done with size 15-18 mm to stage 2. There was no other patholog y seen to explain the patient's melena then in the upper endoscopy. The patient has had colonoscopy done on 07/19/2017 from multiple bowel preps, which showed polyp with no active bleeding as such. Di scharge H&H is 9 and 30, platelet count 355. Initial H&H was 7.5 and 23. INR 1.2. Albumin is 3.0. INPATIENT CONSULTS: Dr. Jackson for Gastroenterology. DISCHARGE PLAN: Patient to follow up with primary care physician in [address] Jackson as advtorito ross. DISCHARGE MEDICATIONS: Xanax 0.5 mg p.o. 3 times daily p.r.n., aspirin 81 mg p.o. daily, Wellbutrin 150 mg p.o. twice daily, vitamin D3 1000 units p.o. daily, citalopram 20 mg p.o. daily, vitamin B12 1 000 mcg p.o. daily, Colace 100 mg p.o. twice daily, ferrous sulfate 300 mg twice daily, folic acid 1 mg twice daily, gabapentin 300 mg p.o. q.p.m., Synthroid 200 mcg p.o. daily, Cytomel 5 mcg p.o. daily , Remeron 15 mg p.o. at bedtime, Protonix 40 mg p.o. daily, MiraLax 17 grams p.o. daily, potassium ch loride 20 mEq p.o. daily, propranolol 10 mg p.o. twice daily, Florastor 250 mg daily, Ultram p.r.n. ALLERGIES: LATEX. BRIEF COURSE DURING HOSPITALIZATION: The patient initially was [facility] from [facility] for bleeding p er rectum. Her initial hemoglobin was 7 grams. She was given a unit of blood and it has remained st able since then. She has had consultation with Dr. Jackson for Gastroenterology. Upper endoscopy done revealed esophageal stricture and has had dilatation done. There were no other acute findings t o account for her melena. The patient had stool impaction and had to be given nearly 10 liters of Go LYTELY along with multiple Fleet enema and digital evacuation to get her fecal impaction resolved. S he subsequently had colonoscopy done which showed polyps with no acute bleeding seen anywhere. She h as been advised to continue Colace and MiraLax for bowel regimen to prevent further impaction. Her H &H has remained stable with serial examinations done. She is hemodynamically stable and will be shor tly discharged back to her [facility]. Please note, the patient has a PEG tube, but she takes oral ly. She is also bedbound and has functional quadriplegia. Total of 35 minutes was spent on discharge plan. Please see a face to face documentation on [employer] for the day of discharge.
--- NOTE | 2017-07-20 17:51 | OP ---
DATE OF PROCEDURE: 07/19/2017 OPERATIVE PROCEDURE: Colonoscopy with polypectomy. PREOPERATIVE DIAGNOSIS: A 56-year-old female with melena, blood loss. The esophagogastrod uodenoscopy was negative. The patient is undergoing colonoscopy. POSTOPERATIVE DIAGNOSES: 1. Sessile polyp in the distal transverse colon just above the splenic flexure. 2. Marked mucosal edema and hypertrophy of the rectal mucosa with ulcerations indicative of fecal im paction, stercoral ulceration. 3. Hemorrhoids. 4. Retained stool in spite of several bowel sounds over the last 72 hours. PROCEDURE IN DETAIL: The patient was placed on her left lateral position and was given sedation by t Anesthesia Department. A rectal exam was done before the scope was advanced into the rectum. No lesions were felt on rectal exam. The patient did have some dark stool on examining finger. A Penta x video colonoscope was introduced into the rectum and advanced all the way into the cecum. The exam was very difficult due to the fact that she has a very reduncant, tortuous colon. Also, she had sho e pockets of solid stools in the colon. The ileocecal area, cecum, ascending colon, no pathology see n. The hepatic flexure, transverse colon, no pathology seen. Over the distal transverse colon, marlene ent was found to have a sessile polyp. The polyp was broad based. It was removed with snare cautery with good hemostasis. The splenic flexure, descending colon, and sigmoid colon, no lesions seen exc ept for some pockets of solid stool. Rectum showed markedly hypertrophic mucosal folds with some ulc eration mostly from fecal impaction. She also has hemorrhoids. RECOMMENDATIONS: 1. Discontinue n.p.o. 2. Diet: Clear liquid diet. 3. Start tube feeding as before. 4. From a GI standpoint, no more further workup necessary. She can probably go to the senior care tomorrow.
== END 2017-07-20 16:57 | DRG 377 ==
LOC: ERS 11:49 → T4-A 17:39
PROVIDERS: ADMIT Internal Medicine; ATTEND Internal Medicine
PROC: 30233N1 Transfusion of Nonautologous Red Blood Cells into Peripheral Vein, Percutaneous Approach (ICD-10-PCS; 2017-07-15)
PROC: 0DBL8ZX Excision of Transverse Colon, Via Natural or Artificial Opening Endoscopic, Diagnostic (ICD-10-PCS; principal; 2017-07-19)
PROC: 0D738ZZ Dilation of Lower Esophagus, Via Natural or Artificial Opening Endoscopic (ICD-10-PCS; 2017-07-19)
DX: K92.1 Melena (principal); R53.2 Functional quadriplegia; E44.0 Moderate protein-calorie malnutrition; D62 Acute posthemorrhagic anemia; K22.2 Esophageal obstruction; Z93.1 Gastrostomy status; Z85.42 Personal history of malignant neoplasm of other parts of uterus; Z92.21 Personal history of antineoplastic chemotherapy; Z92.3 Personal history of irradiation; E03.9 Hypothyroidism, unspecified; E78.5 Hyperlipidemia, unspecified; J44.9 Chronic obstructive pulmonary disease, unspecified; Z74.01 Bed confinement status; I10 Essential (primary) hypertension; F41.9 Anxiety disorder, unspecified; F32.9 Major depressive disorder, single episode, unspecified; Z79.82 Long term (current) use of aspirin; Z91.040 Latex allergy status; Z87.891 Personal history of nicotine dependence; Z66 Do not resuscitate; K63.5 Polyp of colon; K56.41 Fecal impaction; K64.9 Unspecified hemorrhoids; K44.9 Diaphragmatic hernia without obstruction or gangrene; K20.9 Esophagitis, unspecified; Z68.23 Body mass index [BMI] 23.0-23.9, adult
CPT/HCPCS: 36415; 36416; 36430; 80048; 80053; 85014; 85018; 85025; 85610; 85730; 86850; 86900; 86901; 86922; 87324; 87449; 88305; 94760; 96361; 96365; 96366; 96375; J2270; A4216; C9113; J2001; J2405; J2704; J7050; P9016

== ENCOUNTER 2017-10-17 13:09 | Inpatient (IN) | payer OTHER, SELFPAY ==
[2017-10-17 14:04] LABS: #Eosinphils 0.4 thou/uL (0.0-0.7); #Lymphocytes 1.4 thou/uL (1.20-3.40); #Monocytes 0.5 thou/uL (0.11-0.59); #Neutrophils 6.3 thou/uL (1.40-6.50); %Basophils 0.3 % (0.0-1.0); %Eosinophils 4.4 % (0.0-10.0); %Lymphocytes 16.5 % (21.0-51.0); %Monocytes 5.2 % (0.0-10.0); %Neutrophils 73.6 % (42.0-75.0); Hemoglobin 6.4 g/dL (12.0-16.0); Mean Corpuscular HGB CONC 29.6 g/dL (32.0-36.0); Mean Corpuscular Volume 97.9 fl (81.0-99.0); Mean Platelet Volume 6.2 fL (7.4-10.4); Platelet Count 565 thou/uL (130-400); RBC Distribution Width 16.6 % (11.5-14.5); Red Blood Cell (RBC) Count 2.21 mill/uL (4.20-5.40); White Blood Cell (WBC) Count 8.6 thou/uL (4.8-10.8)
[2017-10-17 14:11] LABS: INR-International Normal Ratio 1.2; PTT 30.3 SEC (22.9-36.1); Prothrombin Time 15.1 SEC (12.0-14.7)
[2017-10-17 14:32] LABS: Iron 14 ug/dL (50-170); Iron Binding Capacity, Total 120 mcg/dL (265-497)
[2017-10-17 14:34] LABS: ALT (SGPT) 17 U/L (8-55); AST (SGOT) 16 U/L (5-34); Albumin 2.7 g/dL (3.5-5.0); Alkaline Phosphatase 273 U/L (40-150); Anion Gap 11 mmol/L (10-20); BUN (Urea Nitrogen) 38 mg/dL (9.8-20.1); Bilirubin, Total 0.3 mg/dL (0.2-1.2); Calc. Creatinine Clearance 0 mL/min (70-130); Calcium 9.8 mg/dL (7.8-10.44); Carbon Dioxide 23 mmol/L (22-29); Chloride 105 mmol/L (98-107); Estimated GFR-MDRD 43; Glucose 91 mg/dL (70-105); Potassium 4.9 mmol/L (3.5-5.1); Protein, Total 6.7 g/dL (6.0-8.3); Sodium 134 mmol/L (136-145)
--- NOTE | 2017-10-17 14:53 | RAD ---
AP VIEW CHEST: INDICATIONS: Abdominal pain with history of GI bleeding. FINDINGS: There is bibasilar atelectasis. There is stable mild cardiomegaly. The pulmonary vasculature appear s within normal limits. No pleural effusion or pneumothorax is evident. No acute osseous abnormalit y is evident. IMPRESSION: 1. Stable cardiomegaly. 2. Bibasilar atelectasis. POS: [facility]
[2017-10-17] MEDS ORDERED: Pantoprazole 80 MG, Admixture Fee 1 EACH in Sodium Chloride 0.9% 100 ML IVP SCH (15:45)
[2017-10-17] MEDS ORDERED: Zolpidem Tartrate 5 MG TAB PO PRN (15:47)
[2017-10-17] MEDS ORDERED: Ondansetron HCl/PF 4 MG/2 ML Vial IVP PRN (15:47)
[2017-10-17] MEDS ORDERED: Acetaminophen 325 MG TAB PO PRN (15:53)
--- NOTE | 2017-10-17 16:00 | PDOC.EVN ---
Event Note - Event Note Event Note: H&P DICTATED #[id number]
[2017-10-17 16:08] LABS: Hemoglobin A1c 4.4 % (4.0-6.0)
[2017-10-17] MEDS ORDERED: PROVENTIL INHALER 6.7 G (200 INHALATIONS) INH PRN (17:15)
--- NOTE | 2017-10-17 19:06 | HP ---
DATE OF ADMISSION: 10/17/2017 ADMITTING DIAGNOSIS: GI bleed. HISTORY OF PRESENT ILLNESS: This is a 57-year-old female who apparently was found to have dark stool s and melena at her senior living. Patient had lab work done this morning and was found to have hemog lobin in the upper 6 thus patient was sent to the ER. Of note, the patient was admitted approximatel y 3 months ago with similar symptoms, had an EGD done at that point in time and was found to have a p olyp with no active bleeding was done. Patient at this point in time is being seen in the ER by [facility]. Due to her admission hemoglobin is 6.4, the patient was given blood as the examinatio n is being done. The patient states that she feels weak. Apart from that, she has no other complain ts or issues. No alleviating or aggravating factors noted as happened before, like mentioned earlier 3 months ago. Otherwise, no complaints. No family at bedside. ALLERGIES: LATEX. PAST MEDICAL HISTORY: GI bleed, chronic kidney injury, hypothyroidism, hypertension, anxiety, and pa in. SOCIAL HISTORY: Denies any alcohol, smoking or illicit drug. FAMILY HISTORY: Positive for hypertension in both sides of her family. REVIEW OF SYSTEMS: All systems reviewed. Pertinent positives in the HPI, otherwise negative. HOME MEDICATIONS: See MAR. PHYSICAL EXAMINATION: VITAL SIGNS: Blood pressure is 118/88, heart rate is 108, respiratory rate 12, temperature 98. GENERAL: The patient lying in bed, appears weak; however, no acute distress. HEENT: Normocephalic, atraumatic. Pupils equal, round, react to light and accommodation bilaterally . Extraocular muscles intact. Oral cavity appears slightly dry, but pink. NECK: Supple, mobile, nontender thyroid. LUNGS: Clear to auscultation bilaterally. No respiratory distress. Aerating well. CARDIOVASCULAR: S1, S2. No murmurs, rubs or gallops appreciated. ABDOMEN: Positive bowel sounds, soft, nontender, no rebound or guarding noted. EXTREMITIES: Trace edema bilateral lower extremities, quadriplegic. No cyanosis or clubbing noted. NEUROLOGIC: Cranial nerves II-XII intact. Alert and oriented x3, answering questions appropriately. LABORATORY DATA: CBC shows hemoglobin of 6.4. CBC otherwise normal. PT/INR normal. Basic metaboli c panel has a creatinine of 1.28. Iron percentage saturation of 11% to 12%. Alkaline phosphatase sl ightly elevated 273. Albumin low at 2.7. ASSESSMENT AND PLAN: 1. Gastrointestinal bleed. 2. Hypothyroidism. 3. Cardiomyopathy. 4. Neuropathy. 5. Anxiety. 6. Iron deficiency. At this point in time, we will admit the patient to IMCU, consult to GI for probable scope. Keep ciaran arreaga n.p.o. past midnight. We will give the patient a normal saline for 2 liters and then discontinu e. Resume home medication. We will hold all antiplatelets. Place the patient on Protonix drip. Se rial labs, probable EGD and potential colonoscopy for tomorrow. Case and plan discussed with the ciaran arreaga at length. She wishes to remain a FULL CODE. She understands and agrees with the above plan.
[2017-10-17] MEDS: Sodium Chloride 0.9% 1,000 ML IV SCH ×2 (21:09→21:45)
[2017-10-17] MEDS: buPROPion 75 MG TAB PO SCH (21:37)
[2017-10-17] MEDS: Gabapentin 300 MG CAP PO SCH (21:37)
[2017-10-18] MEDS: Sodium Chloride 0.9% 1,000 ML IV SCH ×3 (02:00→23:40)
[2017-10-18] MEDS: Pantoprazole 80 MG in Sodium Chloride 0.9% 100 ML IVP SCH ×2 (03:13→16:21)
[2017-10-18 05:56] LABS: #Eosinphils 0.3 thou/uL (0.0-0.7); #Lymphocytes 1.3 thou/uL (1.20-3.40); #Monocytes 0.4 thou/uL (0.11-0.59); %Eosinophils 5.3 % (0.0-10.0); %Monocytes 5.9 % (0.0-10.0); %Neutrophils 66.8 % (42.0-75.0); Hemoglobin 9.6 g/dL (12.0-16.0); Mean Corpuscular HGB CONC 30.9 g/dL (32.0-36.0); Mean Corpuscular Hemoglobin 29.5 pg (27.0-31.0); Mean Corpuscular Volume 95.5 fl (81.0-99.0); Mean Platelet Volume 6.3 fL (7.4-10.4); Platelet Count 478 thou/uL (130-400); RBC Distribution Width 15.7 % (11.5-14.5); Red Blood Cell (RBC) Count 3.24 mill/uL (4.20-5.40)
[2017-10-18 06:04] LABS: Anion Gap 12 mmol/L (10-20); BUN (Urea Nitrogen) 29 mg/dL (9.8-20.1); Calc. Creatinine Clearance 49 mL/min (70-130); Calcium 9.4 mg/dL (7.8-10.44); Carbon Dioxide 20 mmol/L (22-29); Chloride 110 mmol/L (98-107); Estimated GFR-MDRD 59; Glucose 66 mg/dL (70-105); Potassium 4.3 mmol/L (3.5-5.1); Sodium 138 mmol/L (136-145)
[2017-10-18] MEDS: Levothyroxine Sodium 100 MCG TAB PO SCH (06:19)
--- NOTE | 2017-10-18 08:06 | CON ---
DATE OF CONSULTATION: 10/17/2017 REFERRING PHYSICIAN: Dr. Saran Whitaker, [facility]. REASON FOR CONSULTATION: Black tarry stool, anemia due to blood loss. HISTORY OF PRESENT ILLNESS: Ms. Alix Rodriguez is a 57-year-old female who is known to me from before. The patient is a skilled nursing resident. The patient has had a PEG tube placement done by me in 2017. She also had an EGD 3 months ago when she was presented with anemia and melena stool. The EGD at that time showed esophageal stricture, but no active bleeding seen in the stomach. She had a colonoscopy at that time. Took us three days to prep the patient with multiple gallons of GoLY TELY and enemas to clean up. Even then, she had retained stool in the colon. The colonoscopy did no t have any bleeding sites but she did have a polyp. She is a skilled nursing resident and she tells me she has been feeding out of G-tube for the last 3 months. No one has actually been . She is eat ing fairly well. She denies any dysphagia or odynophagia. No abdominal pain, nausea, vomiting. Gema arently, in the skilled nursing, nurse noticed that she had a black tarry stool yesterday. Blood count dropped down from around 9 to 6 today. She was transferred to the ER because of the above reason. S he was given 2 units of blood in the ER because of the low hemoglobin of 6. She is also on IV normal saline. She was seen in the floor and she appears comfortable. She is awake, alert and communicati ve. The patient had a G-tube placement because of poor oral intake and weight loss. As per the marlene ent, she is not using G-tube for the last 3 months. The G-tube was irrigated with saline and water a t the bedside and is currently back to the low wall suction. There is no blood or any coffee-ground material seen in the G-tube aspirate; it looks more bilious. No other relevant history. ALLERGIES: LATEX. MEDICAL ILLNESSES: 1. Chronic anxiety. 2. Chronic depression. 3. Hypertension. 4. Hypothyroidism. 5. Chronic kidney disease. 6. Erosive esophagitis. 7. Colon polyp. 8. Esophageal stricture, status post dilatation many times in the past. SOCIAL HISTORY: The patient is single. She is a skilled nursing resident. No history of alcohol intak e, no smoking, no drug use. FAMILY HISTORY: Hypertension, both sides of the family. HOME MEDICATIONS: Reviewed. REVIEW OF SYSTEMS: Unremarkable. PHYSICAL EXAMINATION: GENERAL: Reveals a fragile looking young female, who appears comfortable. She is awake an d communicative. VITAL SIGNS: Her pulse is around 90 at the present time, blood pressure is 120/76. HEENT: Conjunctivae clear. NECK: Supple. No adenitis or thyromegaly noted. CARDIOVASCULAR SYSTEM: First and second heart sounds normal. LUNGS: Clear to auscultation. ABDOMEN: Soft to palpate. Abdomen is nontender. The G-tube site appears very healthy. The tube wa s irrigated with water and they aspirate is actually bilious and yellowish looking and very thin. Th ere is no blood or any coffee-ground material seen in the G-tube aspirate. EXTREMITIES: No edema. LABORATORY DATA: Shows anemia with hemoglobin of 6.4. PT/INR is normal. The BNP is normal except f or creatinine of 1.28, alkaline phosphatase 273, albumin 2.7. CLINICAL IMPRESSION: 1. Melena stool over the last 48 hours with drop in blood count. However, interestingly, the G-tube is connected to suction and there is no blood seen in the G-tube and also no coffee-ground material seen. Bascially, there it is more like bilious material coming out. 2. Anemia due to blood loss. 3. Erosive esophagitis. 4. Esophageal stricture. 5. Colon polyp. 6. Depression and anxiety. 7. Neuropathy. 8. Cardiomyopathy. RECOMMENDATIONS: 1. Connect the G-tube to low wall suction overnight. 2. IV PPI. 3. Follow up H&H. 4. EGD tomorrow. If the EGD is negative, we will plan for a GI bleeding scan.
[2017-10-18] MEDS ORDERED: PROPOFOL 200 MG/20 ML VIAL ONE (09:18)
[2017-10-18] MEDS ORDERED: Lidocaine 1% PF 5 ML VIAL ONE (09:18)
[2017-10-18] MEDS: buPROPion 75 MG TAB PO SCH ×2 (10:29→20:26)
--- NOTE | 2017-10-18 13:46 | PDOC.PN ---
- Subjective Encounter Start Date: 10/18/17 Encounter Start Time: 13:44 Patient seen and examined, pending EGD today, no new complaints, states she feels well. No family at bedside, all questions answered. - Objective Vital Signs & Weight: Vital Signs (12 hours) Temp Pulse Resp BP Pulse Ox 10/18/17 11:00 98.1 F 83 14 115/42 L 100 10/18/17 07:45 97.8 F 79 18 100 10/18/17 07:00 97.8 F 79 18 103/39 L 100 10/18/17 04:04 98.3 F 86 20 115/58 L 95 Weight Weight 103 lb 12.8 oz I&O: 10/17/17 10/18/17 10/19/17 06:59 06:59 06:59 Intake Total 940 Output Total 150 Balance 790 Result Diagrams: 10/18/17 04:34 10/18/17 04:34 Phys Exam - Physical Examination Constitutional: NAD HEENT: PERRLA, moist MMs, sclera anicteric Neck: no nodes, no JVD, supple, full ROM Respiratory: no wheezing, no rales, no rhonchi Cardiovascular: RRR, no significant murmur, no rub Gastrointestinal: soft, non-tender, no distention, positive bowel sounds Musculoskeletal: no edema, pulses present B/L LE paralysis Psychiatric: normal affect, A&O x 3 Skin: no rash, normal turgor Dx/Plan (1) Anemia due to acute blood loss Code(s): D62 - ACUTE POSTHEMORRHAGIC ANEMIA Status: Acute (2) GI bleed Code(s): K92.2 - GASTROINTESTINAL HEMORRHAGE, UNSPECIFIED Status: Acute Qualifiers: GI bleed type/associated pathology: melena Qualified Code(s): K92.1 - Melena (3) Anxiety and depression Code(s): F41.9 - ANXIETY DISORDER, UNSPECIFIED; F32.9 - MAJOR DEPRESSIVE DISORDER, SINGLE EPISODE, UNSPECIFIED Status: Chronic (4) Physical deconditioning Code(s): R53.81 - OTHER MALAISE Status: Chronic - Plan * Hgb stable * EGD for today * no changes in plan for now * bleeding scan if EGD negative * case and plan d/w patient at length, she understands and agrees with this plan
--- NOTE | 2017-10-18 18:30 | OP ---
DATE OF PROCEDURE: 10/18/2017 OPERATIVE PROCEDURE: 1. Esophagogastroduodenoscopy. 2. Esophageal dilation with Savary dilators, sizes 42, 45 and 48-Wolof in diameter. PREOPERATIVE DIAGNOSES: A 57-year-old female with melena, anemia due to blood loss. The p atient had esophageal stricture before and also had grade 3 esophagitis before. The patient is under going esophagogastroduodenoscopy. POSTOPERATIVE DIAGNOSES: 1. Esophageal stricture, with intact mucosa. No ulcerations or any erosions seen. 2. Hiatal hernia. 3. Focal gastritis. 4. Normal duodenum. At time of endoscopy, there is no pathology. The patient had melena stool. PROCEDURE IN DETAIL: The patient was intubated and was given sedation by Anesthesia Department. Thi s was done because history of vomiting before. A Pentax video gastroscope under direct vision passed down the oropharynx, past the GE junction, into the stomach and subsequently into the descending duo denum. The patient had a distal esophageal stricture with intact mucosa. The patient had esophageal stricture before. Now, the esophagus subsequently healed. The ring is very small and circumferenti al. The scope advanced into the stomach with resistance. The patient had a hernia. Retroflexion fa iled to show any lesion in the fundus or cardia. The area over the gastric body was edematous and er ythematous. The incisural angularis, no pathology. The previously placed G-tube identified. The du odenal bulb, descending duodenum, no pathology. A Savary guidewire was placed into the stomach under endoscopic control. The scope removed. Over the guidewire, Savary dilator sizes 42, 45 and 48 Fren ch passed with minimal resistance. Post-dilation, the scope was backed to esophagus. There was muco ingrid tear and mild bleeding at the area of stricture indicative of successful dilation. No complicati ons noted. The stomach was decompressed and the scope removed. RECOMMENDATIONS: 1. P.o. Protonix. 2. Mechanical soft diet. 3. No need for colonoscopy as she had a colonoscopy 3 months ago. If the black tarry stool continue s, recommended tagged RBC scan.
[2017-10-18] MEDS: traMADol HCl 50 MG TAB PO PRN (20:25)
[2017-10-18] MEDS: Gabapentin 300 MG CAP PO SCH (20:26)
[2017-10-18] MEDS: ALPRAZolam 0.5 MG TAB PO PRN (23:40)
[2017-10-19 04:11] LABS: #Eosinphils 0.4 thou/uL (0.0-0.7); #Lymphocytes 1.1 thou/uL (1.20-3.40); #Monocytes 0.4 thou/uL (0.11-0.59); #Neutrophils 3.9 thou/uL (1.40-6.50); %Basophils 0.4 % (0.0-1.0); %Eosinophils 6.9 % (0.0-10.0); %Lymphocytes 19.3 % (21.0-51.0); %Monocytes 7.4 % (0.0-10.0); Hemoglobin 9.1 g/dL (12.0-16.0); Mean Corpuscular HGB CONC 31.2 g/dL (32.0-36.0); Mean Platelet Volume 6.3 fL (7.4-10.4); Platelet Count 464 thou/uL (130-400); RBC Distribution Width 15.8 % (11.5-14.5); Red Blood Cell (RBC) Count 3.04 mill/uL (4.20-5.40); White Blood Cell (WBC) Count 5.9 thou/uL (4.8-10.8)
[2017-10-19 04:30] LABS: Anion Gap 9 mmol/L (10-20); BUN (Urea Nitrogen) 21 mg/dL (9.8-20.1); Calc. Creatinine Clearance 56 mL/min (70-130); Calcium 8.9 mg/dL (7.8-10.44); Carbon Dioxide 20 mmol/L (22-29); Chloride 110 mmol/L (98-107); Estimated GFR-MDRD 69; Glucose 83 mg/dL (70-105); Potassium 3.3 mmol/L (3.5-5.1); Sodium 136 mmol/L (136-145)
[2017-10-19] MEDS: Levothyroxine Sodium 100 MCG TAB PO SCH (06:31)
--- NOTE | 2017-10-19 09:13 | PDOC.PN ---
- Subjective Encounter Start Date: 10/19/17 Encounter Start Time: 09:10 Patient seen and examined, s/p EGD, states she feels well, had a BM today which was also black/tarry in color per patient, no other issues or complaints. No family at bedside, all questions answered. - Objective Vital Signs & Weight: Vital Signs (12 hours) Temp Pulse Resp BP Pulse Ox 10/19/17 07:33 98.6 F 86 20 97 10/19/17 07:31 98.6 F 86 20 97/52 L 99 10/19/17 03:47 98.0 F 95 17 110/54 L 97 10/18/17 23:46 99.3 F 105 H 18 115/62 100 Weight Admit Weight 104 lb 12.8 oz Weight 103 lb 11.2 oz I&O: 10/18/17 10/19/17 10/20/17 06:59 06:59 06:59 Intake Total 940 2270 Output Total 150 Balance 790 2270 Result Diagrams: 10/19/17 03:09 10/19/17 03:09 Phys Exam - Physical Examination Constitutional: NAD HEENT: PERRLA, moist MMs, sclera anicteric Neck: no nodes, no JVD, supple, full ROM Respiratory: no wheezing, no rales, no rhonchi Cardiovascular: RRR, no significant murmur, no rub Gastrointestinal: soft, non-tender, no distention, positive bowel sounds Musculoskeletal: no edema, pulses present Neurological: normal sensation Psychiatric: normal affect, A&O x 3 Skin: no rash, normal turgor Dx/Plan (1) Anemia due to acute blood loss Code(s): D62 - ACUTE POSTHEMORRHAGIC ANEMIA Status: Acute (2) GI bleed Code(s): K92.2 - GASTROINTESTINAL HEMORRHAGE, UNSPECIFIED Status: Acute Qualifiers: GI bleed type/associated pathology: melena Qualified Code(s): K92.1 - Melena (3) Anxiety and depression Code(s): F41.9 - ANXIETY DISORDER, UNSPECIFIED; F32.9 - MAJOR DEPRESSIVE DISORDER, SINGLE EPISODE, UNSPECIFIED Status: Chronic (4) Physical deconditioning Code(s): R53.81 - OTHER MALAISE Status: Chronic - Plan * S/P EGD, continues to have bleeding * bleeding scan ordered, d/w GI * transfer to telemetry for now * will monitor for now and follow up with bleeding scan result in AM * DC plans in 24-48hrs for now if Hgb stable and bleeding scan negative and if ok with GI * case and plan d/w patient at length, she understands and agrees with this plan
[2017-10-19 14:07] VITALS: BMI 18.9
--- NOTE | 2017-10-19 14:09 | NM ---
NUCLEAR MEDICINE BLEEDING SCAN: HISTORY: A 57-year-old female with a GI bleed. TECHNIQUE: A nuclear medicine bleeding scan was performed using 27 millicuries of technetium 99m tagged red bloo d cells. FINDINGS: The uptake of the radiopharmaceutical predominantly stays within the blood pool. There is some nonfo dev uptake in the midline of the abdomen, which does not extend either proximally or distally and can not be definitely confirmed as a source of a GI bleed. This is difficult to appreciate on the static images and is best appreciated on the cine loop. IMPRESSION: No evidence of definite ongoing gastrointestinal bleed. POS: LIDYA
[2017-10-19] MEDS: buPROPion 75 MG TAB PO SCH ×2 (14:21→20:46)
--- NOTE | 2017-10-19 14:50 | PRG ---
DATE OF SERVICE: 10/19/2017 HISTORY OF PRESENT ILLNESS: This is a 57-year-old female hospitalized with GI bleeding. T he patient had black tarry stool over the last couple of days. She had an EGD done yesterday. The E GD was negative for any significant pathology. The patient had 2 black tarry stools last night and e amelia this morning. She has no abdominal pain, no nausea, no vomiting. LABORATORY DATA: Today shows WBC 5900, hemoglobin 9.1, hematocrit 29.2. PHYSICAL EXAMINATION: GENERAL: Appears comfortable, afebrile. VITAL SIGNS: Pulse is 86, blood pressure 97/52. CARDIOVASCULAR: First and second heart sounds normal. LUNGS: Clear to auscultation. ABDOMEN: Soft to palpate. No organomegaly. No tenderness. RECOMMENDATIONS: 1. Continue diet as tolerated. 2. Obtain a tagged RBC scan today. I will make further recommendation after the scan.
[2017-10-19] MEDS: Sodium Chloride 0.9% 1,000 ML IV SCH (19:18)
[2017-10-19] MEDS: Gabapentin 300 MG CAP PO SCH (20:46)
[2017-10-19] MEDS: traMADol HCl 50 MG TAB PO PRN (22:49)
[2017-10-19] MEDS: ALPRAZolam 0.5 MG TAB PO PRN (22:49)
--- NOTE | 2017-10-19 23:32 | PRG ---
DATE OF SERVICE: 10/19/2017 HISTORY OF PRESENT ILLNESS: Ms. Alix Rodriguez is a very pleasant 57-year-old female, hosp italized with anemia. The patient had an EGD done yesterday. The EGD was negative for any pat hology. The patient had a tagged RBC scan done today. The scan does not reveal any bleeding patholo gy. She continues to pass some black tarry stool, most likely what is left in the GI tract from rece nt bleeding. Her hemoglobin over the last 24 hours has been safe. Yesterday, it was 9.6, today 9.1. RECOMMENDATIONS: 1. Diet as tolerated. 2. Repeat H&H and if stable, consider discharge back to the [facility] tomorrow. Based on the workup, I believe she most likely has bleeding from AVMs of the GI tract. I believe she is not a candidate for endoscopy and also [facility] patient.
[2017-10-20 04:53] LABS: #Basophils 0.1 thou/uL (0.0-0.2); #Eosinphils 0.4 thou/uL (0.0-0.7); #Lymphocytes 1.1 thou/uL (1.20-3.40); #Monocytes 0.2 thou/uL (0.11-0.59); #Neutrophils 2.5 thou/uL (1.40-6.50); %Basophils 2.2 % (0.0-1.0); %Lymphocytes 24.8 % (21.0-51.0); %Monocytes 5.4 % (0.0-10.0); %Neutrophils 57.5 % (42.0-75.0); Mean Corpuscular HGB CONC 31.3 g/dL (32.0-36.0); Mean Corpuscular Hemoglobin 29.5 pg (27.0-31.0); Mean Platelet Volume 6.2 fL (7.4-10.4); Platelet Count 423 thou/uL (130-400); RBC Distribution Width 15.6 % (11.5-14.5); Red Blood Cell (RBC) Count 3.06 mill/uL (4.20-5.40); White Blood Cell (WBC) Count 4.3 thou/uL (4.8-10.8)
[2017-10-20 04:57] LABS: Anion Gap 12 mmol/L (10-20); BUN (Urea Nitrogen) 12 mg/dL (9.8-20.1); Calc. Creatinine Clearance 60 mL/min (70-130); Calcium 8.6 mg/dL (7.8-10.44); Carbon Dioxide 19 mmol/L (22-29); Chloride 107 mmol/L (98-107); Estimated GFR-MDRD 76; Glucose 82 mg/dL (70-105); Sodium 135 mmol/L (136-145)
[2017-10-20 05:00] LABS: Potassium 2.7 mmol/L (3.5-5.1)
[2017-10-20] MEDS ORDERED: Potassium Chloride 20 MEQ TAB PO SCH (05:15)
[2017-10-20] MEDS: Levothyroxine Sodium 100 MCG TAB PO SCH (05:51)
[2017-10-20] MEDS: buPROPion 75 MG TAB PO SCH ×2 (08:08→19:55)
[2017-10-20] MEDS: Bicitra 30 ML UDCUP PO SCH ×4 (10:00→22:16)
[2017-10-20] MEDS: Sodium Chloride 0.9% 1,000 ML IV SCH ×2 (10:00→23:56)
--- NOTE | 2017-10-20 10:47 | PDOC.EVN ---
Event Note - Event Note Event Note: DC SUMMARY DICTATED #[id number]
--- NOTE | 2017-10-20 10:49 | PDOC.PN ---
- Subjective Encounter Start Date: 10/20/17 Encounter Start Time: 10:48 Patient seen and examined, had a BM today which she states was the same as before, no other complaints or issues, no issues overnight, no family at bedside , all questions answered. - Objective Vital Signs & Weight: Vital Signs (12 hours) Temp Pulse Resp BP Pulse Ox 10/20/17 08:00 98.0 F 79 16 100 10/20/17 07:24 98.0 F 79 16 125/58 L 100 10/20/17 04:00 98.4 F 86 16 95/50 L 99 10/20/17 00:00 99.1 F 97 16 92/47 L 100 Weight Admit Weight 104 lb 12.8 oz Weight 104 lb 3.2 oz I&O: 10/19/17 10/20/17 10/21/17 06:59 06:59 06:59 Intake Total 2270 Balance 2270 Result Diagrams: 10/20/17 04:12 10/20/17 04:12 Phys Exam - Physical Examination Constitutional: NAD HEENT: PERRLA, moist MMs, sclera anicteric Neck: no nodes, no JVD, supple, full ROM Respiratory: no wheezing, no rales, no rhonchi Cardiovascular: RRR, no significant murmur, no rub Gastrointestinal: soft, non-tender, no distention, positive bowel sounds Musculoskeletal: no edema, pulses present Neurological: non-focal, normal sensation Psychiatric: normal affect, A&O x 3 Skin: no rash, normal turgor Dx/Plan (1) Anemia due to acute blood loss Code(s): D62 - ACUTE POSTHEMORRHAGIC ANEMIA Status: Acute (2) GI bleed Code(s): K92.2 - GASTROINTESTINAL HEMORRHAGE, UNSPECIFIED Status: Acute Qualifiers: GI bleed type/associated pathology: melena Qualified Code(s): K92.1 - Melena (3) Anxiety and depression Code(s): F41.9 - ANXIETY DISORDER, UNSPECIFIED; F32.9 - MAJOR DEPRESSIVE DISORDER, SINGLE EPISODE, UNSPECIFIED Status: Chronic (4) Physical deconditioning Code(s): R53.81 - OTHER MALAISE Status: Chronic - Plan * Hgb stable * concern for AVMs, will obtain echo to make sure patient doesn't have severe which may be causing these * DC plans if Echo negative and ok with GI * no other changes in plan of care * case and plan d/w patient at length, she understands and agrees with this plan.
--- NOTE | 2017-10-20 11:27 | PRG ---
DATE OF SERVICE: 10/20/2017. SUBJECTIVE: Ms. Rodriguez is doing okay today. She is tolerating a bit of her diet. There is no abdominal pain. There was report of a few more dark tarry stools overnight, but she has remained hemodynamically stable and hemoglobin is stable this morning as well at 9.0. PHYSICAL EXAMINATION: VITAL SIGNS: Temperature 98.0, pulse 79, blood pressure 125/58, 100% oxygen saturation on room air. GENERAL: Chronically ill, no acute distress, nontoxic. HEART: Regular rate and rhythm. LUNGS: Clear to auscultation bilaterally. ABDOMEN: Soft, nontender to palpation. EXTREMITIES: No peripheral edema. LABORATORY STUDIES: WBC 4.3, hemoglobin 9.0, platelets 423. INR 1.2. Sodium 135, potassium 2.7, BUN came down to 12 from 21 yesterday, creatinine 0.79. ASSESSMENT AND PLAN: 1. Melena. 2. Anemia, stabilized. I reviewed her workup over the past few days. She had a negative EGD. She had negative tagged RBC scan yesterday. She had normal colonoscopy. Just a few months ago, Dr. 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 At any rate, hemoglobin is stable today. BUN is declining and it appears this acute bleeding episode is resolved. She can continue her diet. GI will sign off at this time, but please call back with any questions or concerns. MTDD
[2017-10-20] MEDS: Potassium Chloride 20 MEQ TAB PO SCH ×2 (12:54→17:28)
--- NOTE | 2017-10-20 16:09 | DIS ---
DATE OF ADMISSION: 10/17/2017 DATE OF DISCHARGE: 10/20/2017 ADMITTING DIAGNOSES: Gastrointestinal bleed, chronic kidney disease stage 3, hypothyroidism, hyperte nsion, anxiety, and pain. DISCHARGE DIAGNOSES: Gastrointestinal bleed resolved, chronic kidney injury stage 3, hypothyroidism, hypertension, anxiety. HOSPITAL COURSE: This is a 57-year-old female who apparently was found to have dark tarry stools and melena. In the residential, patient was found to have a hemoglobin in the upper 6. At that time i n the ER, patient was transfused blood and was admitted to Internal Medicine Team and placed in the I MCU followed very closely by IM as well as GI. Patient had an endoscopy done which showed no acute s ource of bleeding. The patient also had a bleeding scan done, which showed no acute bleed. At the p oint in time of discharge, the patient's hemoglobin was 9.1 and stable. The patient denied any compl aints or issues. No nausea, vomiting, diarrhea, constipation, chest pain or shortness of breath. Th e patient's potassium was found to be low at 2.7, which was replaced by IV and p.o. Patient also had an echocardiogram done prior to discharge. Patient was cleared by Internal Medicine and GI prior to discharge. Was to follow up with her PCP within 1 week for further lab draws and care. Case and pl an discussed with the patient at length. She understands and agrees with this plan. DISPOSITION: To residential. Follow up with PCP within 1 week and GI within 2 weeks. CONDITION: Stable. PROGNOSIS: Guarded. MEDICATIONS: Resume home medications. ACTIVITY: As tolerated with assistance as appropriate. Diet: Low fat, low calorie, high fiber diet . Case and plan discussed with patient at length. She understands and agrees with this plan.
--- NOTE | 2017-10-20 18:30 | EKG ---
Test Reason : Blood Pressure : / mmHG Vent. Rate : 092 BPM Atrial Rate : 092 BPM P-R Int : 128 ms QRS Dur : 120 ms QT Int : 402 ms P-R-T Axes : 057 -22 -09 degrees QTc Int : 497 ms Poor data quality, interpretation may be adversely affected Normal sinus rhythm Right bundle branch block Abnormal ECG Confirmed by FÉLIX LEACH D.O. ([id number]), editor producer LUIS ALBERTO STORM ([id number]) on 10/20/2017 6:29:52 PM Referred By: Confirmed By:FÉLIX LEACH D.O.
[2017-10-20] MEDS: traMADol HCl 50 MG TAB PO PRN (19:54)
[2017-10-20] MEDS: Gabapentin 300 MG CAP PO SCH (19:55)
[2017-10-20] MEDS: ALPRAZolam 0.5 MG TAB PO PRN (22:16)
[2017-10-21 04:29] LABS: #Eosinphils 0.2 thou/uL (0.0-0.7); #Monocytes 0.3 thou/uL (0.11-0.59); #Neutrophils 2.9 thou/uL (1.40-6.50); %Basophils 0.1 % (0.0-1.0); %Eosinophils 4.6 % (0.0-10.0); %Lymphocytes 22.6 % (21.0-51.0); %Monocytes 7.6 % (0.0-10.0); Hemoglobin 9.3 g/dL (12.0-16.0); Mean Corpuscular HGB CONC 31.8 g/dL (32.0-36.0); Mean Corpuscular Volume 94.5 fl (81.0-99.0); Mean Platelet Volume 6.1 fL (7.4-10.4); Platelet Count 394 thou/uL (130-400); RBC Distribution Width 15.4 % (11.5-14.5); White Blood Cell (WBC) Count 4.5 thou/uL (4.8-10.8)
[2017-10-21 05:00] LABS: Anion Gap 8 mmol/L (10-20); BUN (Urea Nitrogen) 10 mg/dL (9.8-20.1); Calc. Creatinine Clearance 68 mL/min (70-130); Carbon Dioxide 25 mmol/L (22-29); Chloride 109 mmol/L (98-107); Estimated GFR-MDRD 87; Potassium 4.7 mmol/L (3.5-5.1); Sodium 137 mmol/L (136-145)
[2017-10-21 05:01] LABS: Calcium 8.4 mg/dL (7.8-10.44); Glucose 97 mg/dL (70-105)
[2017-10-21] MEDS: Levothyroxine Sodium 100 MCG TAB PO SCH (05:30)
--- NOTE | 2017-10-21 08:21 | PDOC.EVN ---
Event Note - Event Note Event Note: DC SUMMARY ADDENDUM #[id number]
[2017-10-21] MEDS: buPROPion 75 MG TAB PO SCH (08:53)
[2017-10-21] MEDS ORDERED: Potassium Chloride 20 MEQ TAB PO SCH (09:00)
[2017-10-21] MEDS: Potassium Chloride 20 MEQ TAB PO SCH (09:05)
[2017-10-21] MEDS: Bicitra 30 ML UDCUP PO SCH (09:13)
[2017-10-21 11:11] VITALS: BP 112/61; TEMP 98.6
--- NOTE | 2017-10-21 15:30 | ADD-DIS ---
DATE OF DISCHARGE: 10/21/2017 Patient not discharged, his echo report was not available. No other changes in discharge summary.
== END 2017-10-21 14:19 | DRG 378 ==
LOC: ERS 13:09 → ERHOLD 16:14 → IMCU/EMU 20:36
PROVIDERS: ADMIT Internal Medicine; ATTEND Internal Medicine
PROC: 0D758ZZ Dilation of Esophagus, Via Natural or Artificial Opening Endoscopic (ICD-10-PCS; principal; 2017-10-17)
DX: K92.2 Gastrointestinal hemorrhage, unspecified (principal); D62 Acute posthemorrhagic anemia; I42.9 Cardiomyopathy, unspecified; F32.9 Major depressive disorder, single episode, unspecified; F41.9 Anxiety disorder, unspecified; R53.81 Other malaise; N18.3 Chronic kidney disease, stage 3 (moderate); E03.9 Hypothyroidism, unspecified; K22.2 Esophageal obstruction; K20.9 Esophagitis, unspecified; K63.5 Polyp of colon; G62.9 Polyneuropathy, unspecified; Z93.1 Gastrostomy status; I12.9 Hypertensive chronic kidney disease with stage 1 through stage 4 chronic kidney disease, or unspecified chronic kidney disease
CPT/HCPCS: 36415; 36430; 71045; 78278; 80048; 80053; 82274; 82728; 83036; 83540; 83550; 84443; 85025; 85610; 85730; 86850; 86900; 86901; 86922; 87324; 87449; 93005; 93306; 94760; 96365; 96366; A9604; C9113; J2001; J2704; J7050; P9016